=== PATIENT | female | born 1965 | race Caucasian/White ===

== ENCOUNTER 2018-03-14 20:28 | Emergency (ER) | payer SELFPAY ==
[2018-03-14 20:28] VITALS: BP 140/94; PULSE 115; RESP 22; TEMP 36.9; O2SAT 97; BMI 32.4
--- NOTE | 2018-03-14 20:52 | EKG12_ITS ---
Test Reason : CP Blood Pressure : / mmHG Vent. Rate : 085 BPM Atrial Rate : 085 BPM P-R Int : 154 ms QRS Dur : 096 ms QT Int : 388 ms P-R-T Axes : 056 089 041 degrees QTc Int : 461 ms Normal sinus rhythm Normal ECG Confirmed by BELLA ZAMORA, TRUDI ([id number]), television news video editor SHUBHAM STEVENS ([id number]) on 03/16/2018 2:34:28 PM Referred By: Confirmed By:TRUDI BLANCO MD
--- NOTE | 2018-03-14 20:52 | RAD_ITS ---
STUDY: X-RAY CHEST REASON FOR EXAM: Female, 52 years old. DYSPNEA TECHNIQUE: Frontal and lateral views of the chest. COMPARISON: None. FINDINGS: The lungs are clear and expanded. There is no demonstrated pleural abnormality. Normal size heart. Normal mediastinum and giuliana. Normal visualized pulmonary arteries. Normal visualized aortic arch and descending thoracic aorta. Normal visualized thoracic spine. Normal visualized ribs, clavicles, and shoulders. There is no demonstrated abnormality of the visualized soft tissue structures of the upper abdomen. RAD/Chest PA and Lateral IMPRESSION: Normal x-ray examination of the chest. Electronically Signed: Chicho Cardenas MD at 21:32 EDT , Service support ,
[2018-03-14 21:02] LABS: Bacteria 0 SEEN /hpf (None Seen); Mucous, Urine 0 SEEN /hpf (<or=2+); Red Blood Cells-Urine 0 SEEN /hpf (0-5); White Blood Cells 0 SEEN /hpf (0-5)
[2018-03-14 21:04] LABS: Absolute Lymphocyte Count 2.92 X10^3/ul (0.83-4.51); Absolute Neutrophil Count 6.1 X10^3/uL (2.0-7.7); Basophil# 0.04 X10^3/uL; Basophil% 0.4 % (0-1); Eosinophil# 0.57 X10^3/uL; Eosinophils% 5.4 % (0-5); Hematocrit 41.4 % (37-47); Hemoglobin 14.1 g/dl (12.0-15.0); Lymphocyte # 2.92 X10^3/ul (4.0); Lymphocyte % 27.5 % (19-41); Mean Corp Hgb Conc 34.1 g/gl (32-36); Mean Corpuscular Hgb 32.8 pg (27.0-32.0); Mean Corpuscular Volume 96.3 fL (81-99); Mean Platelet Vol. 9.4 fl (6.2-12.0); Monocyte# 0.99 X10^3/uL; Monocyte% 9.3 % (0-10); Neutrophil # 6.06 X10^3/uL (2.7-7.7); Neutrophil % 57.2 % (47-70); Platelet Count 348 K/mm3 (150-450); RBC Distribution Width CV 13.7 % (11.6-14.6); RBC Distribution Width SD 47.9 fl (35.1-43.9); White Blood Count 10.6 K/mm3 (4.4-11.0)
[2018-03-14 21:06] LABS: Color, Urine Straw (Yellow); Glucose, Dipstick Normal (Normal); Ketone-Dipstick Negative (Negative); Leukocyte Esterase-Dipstick Negative /ul (Negative); Nitrite-Dipstick Negative (Negative); Occult Blood-Urine Negative /ul (Negative); Protein-Dipstick Negative (Negative); Specific Gravity, Urine 1.005 (1.002-1.030); Urine Bilirubin Dipstick Negative (Negative); Urine Clarity Clear (Clear); Urine Urobilinogen Normal (Normal)
[2018-03-14 21:06] LABS: POSITIVE COUNT NO; POSITIVE DIFFERENTIAL NO; POSITIVE MORPHOLOGY NO
[2018-03-14 21:17] LABS: Squamous Epithelial Cells - UA 0-5 SEEN /hpf (5-10)
[2018-03-14 21:32] VITALS: BP 98/71; PULSE 72; RESP 17; O2SAT 100
[2018-03-14 21:39] LABS: BNP,B-Type NATRIURETIC PEPTIDE 12.8 pg/mL (0-100)
[2018-03-14 21:44] LABS: ALB/GLOB Ratio 1.2 RATIO (0.9-2.4); AST(SGOT) 26 U/L (15-37); Alanine Aminotransfer ALT/SGPT 26 U/L (13-56); Albumin, Serum 4.1 g/dL (3.2-5.0); Alkaline Phosphatase 103 U/L (45-117); Anion Gap 12 (5-15); BUN 12 mg/dL (7-18); BUN/Creat Ratio 14.2 RATIO (10-20); Calcium,Total 9.2 mg/dL (8.5-10.1); Chloride 104 mmol/L (98-107); Creatinine, Serum 0.84 mg/dL (0.55-1.02); EST Glomerular Filtration Rate 75 mL/min (>60); Est Glom Filt Rate - Afr Amer 91 mL/min (>60); Globulin 3.4 g/dL (2.2-4.2); Glucose 88 mg/dL (74-106); Lipase 194 U/L (73-393); Potassium 3.4 mmol/L (3.5-5.1); Protein, Total 7.5 g/dL (6.4-8.2); Sodium Level 141 mmol/L (136-145); Thyroid Stim Hormone (TSH) 8.08 uIU/mL (0.358-3.74)
[2018-03-14 22:09] VITALS: BP 108/67; PULSE 76; RESP 14; O2SAT 99
--- NOTE | 2018-03-14 22:19 | ED.VISSUMM ---
- ER Visit Summary Date of Service: 03/14/18 Chief Complaint: Chest pain History of Present Illness: The patient is a 52 F who reports that for the past 3 weeks she has had some leg swelling. She also notes palpitations. She states that towards the middle of February she went to [facility] urgent care. She had she had a Holter monitor placed but has not gotten results back. Patient states she has been putting herself on an [id number] diuretic. She states that by the end of the day her legs are swollen. By morning they are improved. Tonight she felt chest pain palpitations (heart beating strongly) and had shortness of breath he drove herself to the emergency room. She admits to having several alcoholic drinks prior to arrival. Physical Examination: Afebrile vital signs are stable Gen: Well-nourished well-developed Head: Normocephalic atraumatic Eyes: Perrl EOMI ENT: TMs clear no rhinorrhea moist mucous membranes Neck: Supple no lymphadenopathy no JVD nontender CVS: Regular rate rhythm no murmurs normal S1-S2 Respiratory: No distress clear to auscultation bilaterally chest nontender Abdomen: Soft nontender nondistended normal bowel sounds no masses Back: Nontender Extremity: Nontender no edema Skin: Normal color no rash Neuro: alert orientated ?3 CN II-XII intact normal strength sensation reflexes gait cerebellar Psych: Anxious Test Results: EKG shows a normal sinus rhythm at a rate of 85 white count 10.6. Potassium 3.4. Magnesium 2. Troponin less than 0.015. Alcohol level 92. TSH 8.08. Emergency Department Course and Treatment: Using the cleansing program I see that the patient had some thyroid studies in the beginning of February that were in the normal range. I do not see a heart monitor report. Patient was placed on potassium and twice daily Lasix. She is to follow-up with her doctor the beginning of next week. She was advised that if she has been drinking needs to come the hospital that she should call the ambulance. Impression: 1. Lymphedema 2. Hypokalemia This note was generated with [employer] dictation software. It may contain incorrect words, spelling, and punctuation that were not noted in review of the chart prior to signing ED Disposition - Plan for ED Patient: Disposition: Home or Assisted Living Chief Complaint: Chest Pain Instructions: ED Lymphedema Prescriptions: Potassium Chloride [Klor-Con] 40 meq PO DAILY #10 packet Furosemide [Lasix] 40 mg PO BID #10 tab Referrals: Yaneth Simmons MD [Primary Care Provider] - 1 Week
--- NOTE | 2018-03-14 22:24 | ED.DCSUM_ITS ---
- ER Visit Summary Date of Service: 03/14/18 Chief Complaint: Chest pain History of Present Illness: The patient is a 52 F who reports that for the past 3 weeks she has had some leg swelling. She also notes palpitations. She states that towards the middle of February she went to [facility] urgent care. She had she had a Holter monitor placed but has not gotten results back. Patient states she has been putting herself on an [id number] diuretic. She states that by the end of the day her legs are swollen. By morning they are improved. Tonight she felt chest pain palpitations (heart beating strongly ) and had shortness of breath he drove herself to the emergency room. She admits to having several alcoholic drinks prior to arrival. Physical Examination: Afebrile vital signs are stable Gen: Well-nourished well-developed Head: Normocephalic atraumatic Eyes: Perrl EOMI ENT: TMs clear no rhinorrhea moist mucous membranes Neck: Supple no lymphadenopathy no JVD nontender CVS: Regular rate rhythm no murmurs normal S1-S2 Respiratory: No distress clear to auscultation bilaterally chest nontender Abdomen: Soft nontender nondistended normal bowel sounds no masses Back: Nontender Extremity: Nontender no edema Skin: Normal color no rash Neuro: alert orientated ?3 CN II-XII intact normal strength sensation reflexes gait cerebellar Psych: Anxious Test Results: EKG shows a normal sinus rhythm at a rate of 85 white count 10.6. Potassium 3.4. Magnesium 2. Troponin less than 0.015. Alcohol level 92. TSH 8.08. Emergency Department Course and Treatment: Using the cleansing program I see that the patient had some thyroid studies in the beginning of February that were in the normal range. I do not see a heart monitor report. Patient was placed on potassium and twice daily Lasix. She is to follow-up with her doctor the beginning of next week. She was advised that if she has been drinking needs to come the hospital that she should call the ambulance. Impression: 1. Lymphedema 2. Hypokalemia This note was generated with [employer] dictation software. It may contain incorrect words, spelling, and punctuation that were not noted in review of the chart prior to signing ED Disposition - Plan for ED Patient: Disposition: Home or Assisted Living Chief Complaint: Chest Pain Instructions: ED Lymphedema Prescriptions: Potassium Chloride [Klor-Con] 40 meq PO DAILY #10 packet Furosemide [Lasix] 40 mg PO BID #10 tab Referrals: Yaneth Simmons MD [Primary Care Provider] - 1 Week
[2018-03-14 22:55] VITALS: BP 112/70; PULSE 87; RESP 15; O2SAT 100
--- NOTE | 2018-03-14 22:56 | ED.RN ---
pt given written and verbal discharge instructions and home going prescriptions. pt verbalizes understanding. pt educated not to drink and drive. pt iv d/c and covered with 2x2 gauze dressing and paper tape. pt dresses self and ambulates out of dept without any needed assistance from staff.
== END 2018-03-14 22:59 | disposition home or self-care (01) ==
PROVIDERS: Emergency Provider Emergency Medicine; Family Provider Internal Medicine; PCP Internal Medicine
DX: I89.0 Lymphedema, not elsewhere classified (principal); E87.6 Hypokalemia; I10 Essential (primary) hypertension; R00.2 Palpitations; R06.00 Dyspnea, unspecified; Z72.0 Tobacco use; Z79.82 Long term (current) use of aspirin; Z79.899 Other long term (current) drug therapy
CPT/HCPCS: 71046; 80053; 80320; 81001; 83690; 83735; 83880; 84443; 84484; 85025; 93005; 99284; A4216; G0480

== ENCOUNTER → 2021-02-02 09:25 | Outpatient (CLI) | payer MEDICAID, SELFPAY ==
[2021-01-14 14:37] VITALS: BMI 32.4
[2021-02-02 12:42] LABS: Absolute Lymphocyte Count 1.83 X10^3/uL (0.83-4.51); Absolute Neutrophil Count 3.8 X10^3/uL (2.0-7.7); Basophil# 0.04 X10^3/uL; Basophil% 0.6 % (0-1); Eosinophil# 0.41 X10^3/uL; Eosinophils% 6.1 % (0-5); Hematocrit 44.3 % (37-47); Hemoglobin 14.4 g/dL (12.0-15.0); Lymphocyte # 1.83 X10^3/ul (0.83-4.51); Lymphocyte % 27.1 % (19-41); Mean Corp Hgb Conc 32.5 g/dL (32-36); Mean Corpuscular Hgb 31.6 pg (27.0-32.0); Mean Corpuscular Volume 97.4 fL (81-99); Mean Platelet Vol. 10.1 fl (6.2-12.0); Monocyte# 0.67 X10^3/uL; Monocyte% 9.9 % (0-10); NRBC Flagged by Analyzer 0 % (0-5); Neutrophil # 3.79 X10^3/uL (2.7-7.7); Neutrophil % 56.2 % (47-70); Platelet Count 361 K/mm3 (150-450); RBC Distribution Width CV 12.9 % (11.6-14.6); RBC Distribution Width SD 46.5 fl (35.1-43.9); Red Blood Count 4.55 M/mm3 (4.2-5.4); White Blood Count 6.8 K/mm3 (4.4-11.0)
[2021-02-02 13:15] LABS: ALB/GLOB Ratio 1.1 RATIO (0.9-2.4); AST(SGOT) 17 U/L (15-37); Alanine Aminotransfer ALT/SGPT 20 U/L (13-56); Albumin, Serum 3.9 g/dL (3.2-5.0); Alkaline Phosphatase 101 U/L (45-117); Anion Gap 7 (5-15); BUN 16 mg/dL (7-18); BUN/Creat Ratio 15.4 RATIO (10-20); Calcium,Total 9.5 mg/dL (8.5-10.1); Chloride 99 mmol/L (98-107); Cholesterol 150 mg/dL (200); Creatinine, Serum 1.04 mg/dL (0.55-1.02); EST Glomerular Filtration Rate 58 mL/min (>60); Est Glom Filt Rate - Afr Amer 71 mL/min (>60); Free T3 3.9 pg/mL (2.18-3.98); Globulin 3.4 g/dL (2.2-4.2); Glucose 107 mg/dL (74-106); High Density Lipoprotein 58 mg/dL; Magnesium 2.2 mg/dL (1.6-2.6); Potassium 3.8 mmol/L (3.5-5.1); Protein, Total 7.3 g/dL (6.4-8.2); Sodium Level 138 mmol/L (136-145); T4 Free Direct 0.84 ng/dL (0.76-1.46); Triglycerides 112 mg/dL; Very Low Density Lipoprotein 22 mg/dL (5-40)
[2021-02-02 13:20] LABS: Hemoglobin A1c 5.6 % (3.8-5.6)
== END ==
PROVIDERS: PCP Internal Medicine; Referring Provider Internal Medicine; Visit Provider Internal Medicine
DX: E03.9 Hypothyroidism, unspecified (principal); E53.8 Deficiency of other specified B group vitamins; E55.9 Vitamin D deficiency, unspecified; E88.81 Metabolic syndrome and other insulin resistance; I10 Essential (primary) hypertension; K21.9 Gastro-esophageal reflux disease without esophagitis; K58.9 Irritable bowel syndrome, unspecified
CPT/HCPCS: 36415; 80053; 80061; 82306; 83036; 83735; 84439; 84443; 84481; 85025

== ENCOUNTER → 2021-04-15 13:17 | Outpatient (CLI) | payer MEDICAID, SELFPAY ==
[2021-04-15 11:37] VITALS: BMI 32.8
[2021-04-15 16:13] LABS: Anion Gap 7 (5-15); BUN 20 mg/dL (7-18); CRP < 2.90 mg/L (0.0-3.0); Calcium,Total 9.6 mg/dL (8.5-10.1); Chloride 97 mmol/L (98-107); Creatinine, Serum 1.25 mg/dL (0.55-1.02); EST Glomerular Filtration Rate 47 mL/min (>60); Est Glom Filt Rate - Afr Amer 57 mL/min (>60); Glucose 117 mg/dL (74-106); Magnesium 2.1 mg/dL (1.6-2.6); Potassium 3.6 mmol/L (3.5-5.1); Sodium Level 136 mmol/L (136-145)
[2021-04-15 16:24] LABS: Erythrocyte Sedimentation Rate 4 mm/hr (0-30)
== END ==
PROVIDERS: PCP Internal Medicine; Referring Provider Internal Medicine; Visit Provider Internal Medicine
DX: I10 Essential (primary) hypertension (principal); E03.9 Hypothyroidism, unspecified; R00.2 Palpitations; M25.542 Pain in joints of left hand
CPT/HCPCS: 36415; 80048; 83735; 85652; 86140

== ENCOUNTER → 2021-05-12 08:17 | Outpatient (CLI) | payer MEDICAID, SELFPAY ==
[2021-05-12 08:19] LABS: Lyme Ab Screen Interpretation REF LAB
[2021-05-12 12:35] LABS: Anion Gap 3 (5-15); BUN 19 mg/dL (7-18); BUN/Creat Ratio 16.8 RATIO (10-20); Calcium,Total 9.3 mg/dL (8.5-10.1); Chloride 102 mmol/L (98-107); Creatinine, Serum 1.13 mg/dL (0.55-1.02); EST Glomerular Filtration Rate 53 mL/min (>60); Est Glom Filt Rate - Afr Amer 64 mL/min (>60); Glucose 108 mg/dL (74-106); Potassium 3.8 mmol/L (3.5-5.1); Sodium Level 137 mmol/L (136-145)
[2021-05-13 14:22] LABS: Lyme Scn Total Ab w/Rflx <0.91 ISR (0.00-0.90)
== END ==
PROVIDERS: PCP Internal Medicine; Referring Provider Internal Medicine; Visit Provider Internal Medicine
DX: I10 Essential (primary) hypertension (principal); W57.XXXA Bitten or stung by nonvenomous insect and other nonvenomous arthropods, initial encounter
CPT/HCPCS: 36415; 80048; 86618

== ENCOUNTER → 2021-07-15 11:03 | Outpatient (CLI) | payer MEDICAID, SELFPAY ==
[2021-07-15 12:31] LABS: Anion Gap 4 (5-15); BUN 21 mg/dL (7-18); BUN/Creat Ratio 19.3 RATIO (10-20); Calcium,Total 10.4 mg/dL (8.5-10.1); Chloride 101 mmol/L (98-107); Creatinine, Serum 1.09 mg/dL (0.55-1.02); EST Glomerular Filtration Rate 55 mL/min (>60); Est Glom Filt Rate - Afr Amer 67 mL/min (>60); Glucose 111 mg/dL (74-106); Magnesium 2.4 mg/dL (1.6-2.6); Sodium Level 136 mmol/L (136-145)
== END ==
PROVIDERS: PCP Internal Medicine; Referring Provider Internal Medicine; Visit Provider Internal Medicine
DX: I10 Essential (primary) hypertension (principal); E03.9 Hypothyroidism, unspecified; R79.89 Other specified abnormal findings of blood chemistry
CPT/HCPCS: 36415; 80048; 82533; 83735

== ENCOUNTER 2021-09-16 13:22 | Outpatient (CLI) | payer MEDICAID, SELFPAY ==
[2021-09-19 20:08] LABS: Covid Inpatient test code BILL Performed (.)
== END 2021-09-16 23:59 | disposition short-term general hospital (02) ==
LOC: LABSPEC 13:22
PROVIDERS: PCP Internal Medicine; Visit Provider Internal Medicine
DX: J06.9 Acute upper respiratory infection, unspecified (principal)
CPT/HCPCS: U0003; 87635; U0005

== ENCOUNTER 2021-10-08 10:58 | Outpatient (CLI) | payer MEDICAID, SELFPAY | END 2021-10-08 23:59 | disposition short-term general hospital (02) | LOC: LABSPEC 10:59 | PROVIDERS: PCP Internal Medicine; Referring Provider Internal Medicine; Visit Provider Internal Medicine | DX: U07.1 COVID-19 (principal) | CPT/HCPCS: 87635; U0003; U0005 ==

== ENCOUNTER 2021-11-12 12:01 | Outpatient (CLI) | payer MEDICAID, SELFPAY ==
[2021-11-12 15:27] LABS: Absolute Lymphocyte Count 1.88 X10^3/uL (0.83-4.51); Absolute Neutrophil Count 4.7 X10^3/uL (2.0-7.7); Basophil# 0.05 X10^3/uL; Basophil% 0.6 % (0-1); Eosinophils% 6.3 % (0-5); Hematocrit 42.1 % (37-47); Lymphocyte # 1.88 X10^3/ul (0.83-4.51); Lymphocyte % 23.7 % (19-41); Mean Corp Hgb Conc 33.3 g/dL (32-36); Mean Corpuscular Hgb 32.4 pg (27.0-32.0); Mean Corpuscular Volume 97.5 fL (81-99); Mean Platelet Vol. 10.2 fl (6.2-12.0); Monocyte# 0.77 X10^3/uL; Monocyte% 9.7 % (0-10); NRBC Flagged by Analyzer 0 % (0-5); Neutrophil % 59.4 % (47-70); Platelet Count 339 K/mm3 (150-450); RBC Distribution Width SD 50.6 fl (35.1-43.9); Red Blood Count 4.32 M/mm3 (4.2-5.4); White Blood Count 7.9 K/mm3 (4.4-11.0)
[2021-11-12 15:40] LABS: ALB/GLOB Ratio 1.2 RATIO (0.9-2.4); AST(SGOT) 18 U/L (15-37); Alanine Aminotransfer ALT/SGPT 22 U/L (13-56); Albumin, Serum 4.1 g/dL (3.2-5.0); Alkaline Phosphatase 101 U/L (45-117); Anion Gap 4 (5-15); BUN 17 mg/dL (7-18); BUN/Creat Ratio 14.7 RATIO (10-20); Chloride 104 mmol/L (98-107); Creatinine, Serum 1.16 mg/dL (0.55-1.02); EST Glomerular Filtration Rate 51 mL/min (>60); Est Glom Filt Rate - Afr Amer 62 mL/min (>60); Globulin 3.4 g/dL (2.2-4.2); Glucose 113 mg/dL (74-106); Magnesium 2.4 mg/dL (1.6-2.6); Potassium 4.3 mmol/L (3.5-5.1); Protein, Total 7.5 g/dL (6.4-8.2); Sodium Level 138 mmol/L (136-145)
== END 2021-11-12 23:59 | disposition home or self-care (01) ==
LOC: BIMLAB 12:02
PROVIDERS: PCP Internal Medicine; Referring Provider Internal Medicine; Visit Provider Internal Medicine
DX: E03.9 Hypothyroidism, unspecified (principal); R00.2 Palpitations; R79.89 Other specified abnormal findings of blood chemistry; I10 Essential (primary) hypertension
CPT/HCPCS: 36415; 80053; 83735; 85025

== ENCOUNTER → 2023-03-25 | Outpatient (CLI) | payer MEDICAID, SELFPAY ==
[2023-03-25 12:26] LABS: Absolute Lymphocyte Count 1.64 X10^3/uL (0.83-4.51); Absolute Neutrophil Count 5.1 X10^3/uL (2.0-7.7); Basophil# 0.06 X10^3/uL; Basophil% 0.7 % (0-1); Eosinophil# 0.64 X10^3/uL; Eosinophils% 7.8 % (0-5); Hematocrit 46.6 % (37-47); Hemoglobin 15.8 g/dL (12.0-15.0); Lymphocyte # 1.64 X10^3/ul (0.83-4.51); Mean Corp Hgb Conc 33.9 g/dL (32-36); Mean Corpuscular Hgb 32.8 pg (27.0-32.0); Mean Corpuscular Volume 96.7 fL (81-99); Mean Platelet Vol. 9.6 fl (6.2-12.0); Monocyte# 0.69 X10^3/uL; Monocyte% 8.4 % (0-10); NRBC Flagged by Analyzer 0 % (0-5); Neutrophil # 5.12 X10^3/uL (2.7-7.7); Neutrophil % 62.5 % (47-70); Platelet Count 298 K/mm3 (150-450); RBC Distribution Width CV 13.1 % (11.6-14.6); RBC Distribution Width SD 46.8 fl (35.1-43.9); Red Blood Count 4.82 M/mm3 (4.2-5.4); White Blood Count 8.2 K/mm3 (4.4-11.0)
[2023-03-25 12:54] LABS: Vitamin D,25 Hydroxy 66.2 ng/mL
[2023-03-25 12:59] LABS: Hemoglobin A1c 5.7 % (3.8-5.6)
[2023-03-25 13:05] LABS: ALB/GLOB Ratio 1.1 RATIO (0.9-2.4); AST(SGOT) 14 U/L (15-37); Alanine Aminotransfer ALT/SGPT 14 U/L (13-56); Albumin, Serum 3.7 g/dL (3.2-5.0); Alkaline Phosphatase 96 U/L (45-117); Anion Gap 4 (5-15); BUN 17 mg/dL (7-18); BUN/Creat Ratio 13.7 RATIO (10-20); Calcium,Total 9.4 mg/dL (8.5-10.1); Chloride 103 mmol/L (98-107); Cholesterol 132 mg/dL (200); Creatinine, Serum 1.24 mg/dL (0.55-1.02); EST Glomerular Filtration Rate 47 mL/min (>60); Est Glom Filt Rate - Afr Amer 57 mL/min (>60); Free T3 3.8 pg/mL (2.18-3.98); Globulin 3.4 g/dL (2.2-4.2); Glucose 115 mg/dL (74-106); High Density Lipoprotein 60 mg/dL; Potassium 4.2 mmol/L (3.5-5.1); Protein, Total 7.1 g/dL (6.4-8.2); Sodium Level 136 mmol/L (136-145); T4 Free Direct 0.88 ng/dL (0.76-1.46); Thyroid Stim Hormone (TSH) 2.48 uIU/mL (0.358-3.74); Triglycerides 49 mg/dL; Very Low Density Lipoprotein 10 mg/dL (5-40)
== END | disposition home or self-care (01) ==
PROVIDERS: PCP Internal Medicine; Referring Provider Internal Medicine; Visit Provider Internal Medicine
DX: E88.81 Metabolic syndrome and other insulin resistance (principal); E53.8 Deficiency of other specified B group vitamins; E03.9 Hypothyroidism, unspecified; I10 Essential (primary) hypertension; K21.9 Gastro-esophageal reflux disease without esophagitis; E55.9 Vitamin D deficiency, unspecified; R73.9 Hyperglycemia, unspecified; F17.200 Nicotine dependence, unspecified, uncomplicated
CPT/HCPCS: 36415; 80053; 80061; 82306; 83036; 84439; 84443; 84481; 85025

== ENCOUNTER → 2023-12-15 | Outpatient (CLI) | payer MEDICAID, SELFPAY ==
--- NOTE | 2023-12-15 10:44 | RAD_ITS ---
STUDY: X-RAY CHEST REASON FOR EXAM: Female, 58 years old. Long-term smoker, multiple holden angiomas TECHNIQUE: PA and lateral COMPARISON: March 14, 2018 FINDINGS: Lungs are well expanded and clear... There is no demonstrated pleural abnormality. Normal size heart. Normal mediastinum. Tiny left perihilar granulomatous calcification. Normal visualized pulmonary arteries. Normal visualized aortic arch and descending thoracic aorta. Normal visualized thoracic spine. Normal visualized ribs, clavicles, and shoulders. There is no demonstrated abnormality of the visualized soft tissue structures of the upper abdomen. No significant change since prior exam RAD/Chest PA and Lateral IMPRESSION: No acute cardiopulmonary pathology Electronically Signed: Masood Landrum MD at 22:56 EDT ,
--- NOTE | 2023-12-15 10:45 | RAD_ITS ---
INDICATION: left hip pain EXAMINATION/TECHNIQUE: X-RAY - XR Hips Bilateral with Pelvis when performed; 2 Views COMPARISON: FINDINGS: PELVIC BONES: No displaced fracture, destructive or sclerotic lesions. Note that overlapping bowel shadows may however obscure fine detail. Sacroiliac joints are unremarkable. No widening of the pubic symphysis. HIPS: The articular structures are unremarkable. No displaced fracture seen in this frontal view. SOFT TISSUES: Small soft tissue calcification adjacent to the greater trochanter possibly due to calcific tendinitis. RAD/Hips B/L min 2 views w/ Pelvis IMPRESSION: No evidence of displaced pelvic or hip fracture. Possible calcific tendinitis. Electronically Signed: Masood Landrum MD at 20:55 EDT ,
[2023-12-15 11:41] LABS: Absolute Lymphocyte Count 1.68 X10^3/uL (0.83-4.51); Absolute Neutrophil Count 4.3 X10^3/uL (2.0-7.7); Basophil# 0.05 X10^3/uL; Basophil% 0.7 % (0-1); Eosinophil# 0.27 X10^3/uL; Eosinophils% 3.8 % (0-5); Hematocrit 43.3 % (37-47); Hemoglobin 14.5 g/dL (12.0-15.0); Lymphocyte # 1.68 X10^3/ul (0.83-4.51); Lymphocyte % 23.5 % (19-41); Mean Corp Hgb Conc 33.5 g/dL (32-36); Mean Corpuscular Hgb 32.7 pg (27.0-32.0); Mean Corpuscular Volume 97.7 fL (81-99); Mean Platelet Vol. 9.4 fl (6.2-12.0); Monocyte# 0.77 X10^3/uL; Monocyte% 10.8 % (0-10); NRBC Flagged by Analyzer 0 % (0-5); Neutrophil # 4.33 X10^3/uL (2.7-7.7); Neutrophil % 60.6 % (47-70); Platelet Count 320 K/mm3 (150-450); RBC Distribution Width SD 46.7 fl (35.1-43.9); Red Blood Count 4.43 M/mm3 (4.2-5.4); White Blood Count 7.1 K/mm3 (4.4-11.0)
[2023-12-15 12:21] LABS: Vitamin B12 176 pg/mL (211-911)
[2023-12-15 12:26] LABS: ALB/GLOB Ratio 1.5 RATIO (0.9-2.4); AST(SGOT) 16 U/L (15-37); Alanine Aminotransfer ALT/SGPT 13 U/L (13-56); Albumin, Serum 4.4 g/dL (3.2-5.0); Alkaline Phosphatase 85 U/L (45-117); Anion Gap 5 (5-15); BUN 25 mg/dL (7-18); BUN/Creat Ratio 16.4 RATIO (10-20); Calcium,Total 9.7 mg/dL (8.5-10.1); Chloride 102 mmol/L (98-107); Cholesterol 147 mg/dL (200); Creatinine, Serum 1.52 mg/dL (0.55-1.02); EST Glomerular Filtration Rate 37 mL/min (>60); Est Glom Filt Rate - Afr Amer 45 mL/min (>60); Free T3 3.1 pg/mL (2.18-3.98); Glucose 109 mg/dL (74-106); High Density Lipoprotein 67 mg/dL; Magnesium 2.2 mg/dL (1.6-2.6); Potassium 4.1 mmol/L (3.5-5.1); Protein, Total 7.4 g/dL (6.4-8.2); Sodium Level 135 mmol/L (136-145); T4 Free Direct 0.85 ng/dL (0.76-1.46); Thyroid Stim Hormone (TSH) 3.82 uIU/mL (0.358-3.74); Triglycerides 58 mg/dL; Very Low Density Lipoprotein 12 mg/dL (5-40)
[2023-12-15 12:28] LABS: Hemoglobin A1c 5.5 % (3.8-5.6)
== END | disposition home or self-care (01) ==
LOC: LAB 10:42
PROVIDERS: PCP Internal Medicine; Referring Provider Internal Medicine; Visit Provider Internal Medicine
DX: I10 Essential (primary) hypertension (principal); E53.8 Deficiency of other specified B group vitamins; E03.9 Hypothyroidism, unspecified; E55.9 Vitamin D deficiency, unspecified; E88.810 Metabolic syndrome; K21.9 Gastro-esophageal reflux disease without esophagitis; D18.01 Hemangioma of skin and subcutaneous tissue; M25.552 Pain in left hip; R19.5 Other fecal abnormalities; R73.9 Hyperglycemia, unspecified; F17.200 Nicotine dependence, unspecified, uncomplicated; Z13.220 Encounter for screening for lipoid disorders
CPT/HCPCS: 36415; 71046; 73521; 80053; 80061; 82306; 82607; 83036; 83735; 84439; 84443; 84481; 85025

== ENCOUNTER → 2024-02-22 | Outpatient (CLI) | payer MEDICAID, SELFPAY | END | disposition home or self-care (01) | LOC: LABSPEC 07:27 | PROVIDERS: PCP Internal Medicine; Visit Provider Surgery | DX: R19.7 Diarrhea, unspecified (principal) | CPT/HCPCS: 82274; 83630; 87177; 87209; 87493; 87506 ==

== ENCOUNTER → 2024-03-19 | Outpatient (CLI) | payer MEDICAID, SELFPAY ==
--- NOTE | 2024-03-19 06:57 | CT_ITS ---
STUDY: CT ABDOMEN AND PELVIS WITH CONTRAST REASON FOR EXAM: Female, 58 years old. Diffuse abdominal pain. Nausea. Diarrhea. Weight loss. RADIATION DOSAGE (If Supplied By Facility): CTDIvol = ( 15.27 ) mGy, DLP = ( 1158.85 ) mGycm TECHNIQUE: Transaxial images were obtained from the dome of the diaphragm to the symphysis pubis with oral contrast. Oral and amp; IV Readi-CAT and amp; 100mL Isovue-300 was administered. Sagittal and coronal images were reconstructed. Individualized dose optimization techniques were used for this CT. COMPARISON: None. FINDINGS: The visualized lung bases are unremarkable. The visualized portions of the heart are within normal limits. There is a 3.7 cm x 4.1 cm focal area of heterogeneous enhancement in the lateral mid aspect of the right lobe of the liver. This area is more homogeneous on the delayed images. This may represent an atypical hemangioma or possible regenerating nodules. Correlation with MRI is recommended. There are surgical clips in the gallbladder fossa consistent with a prior cholecystectomy. Normal spleen. Normal pancreas. Normal bilateral adrenal glands. Normal right kidney. Normal left kidney. Normal visualized stomach. Normal small intestine. There is evidence of colitis of the right hemicolon. There is evidence of a 5.9 cm x 5.5 cm x 4.4 cm predominantly fluid collection adjacent to the posterior-inferior aspect of the cecum. This may represent a duplication cyst or possible lymphocele. The patient is status post appendectomy. Normal abdominal aorta. Normal inferior vena cava. Normal retroperitoneum. Normal urinary bladder. There is absence of the uterus consistent with a prior hysterectomy. Normal abdominal wall. Disc space narrowing at the L4-L5 level. CT/Abdomen/Pelvis WITH Contrast IMPRESSION: Findings suggestive of colitis of the right hemicolon. 5.9 cm x 5.5 cm x 4.4 cm predominantly fluid collection adjacent to the posterolateral aspect of the cecum. This may represent either a duplication cyst versus possible lymphocele. 3.7 cm x 4 point centimeter focal area of heterogeneous enhancement in the lateral mid aspect of the right lobe of liver as described. Correlation with MRI of the liver is recommended for further evaluation. Electronically Signed: Jef Solis MD at 10:03 EDT ,
[2024-03-19 07:27] LABS: CREATININE FINGERSTICK < 1.0 mg/dL (0.55-1.02); EGFR FINGERSTICK > 60.0000 mL/min (>60)
== END | disposition home or self-care (01) ==
LOC: CT 06:55
PROVIDERS: PCP Internal Medicine; Referring Provider Surgery; Visit Provider Surgery
DX: R19.7 Diarrhea, unspecified (principal); R10.9 Unspecified abdominal pain
CPT/HCPCS: 74177; Q9967

== ENCOUNTER 2024-03-28 09:56 | Inpatient (IN) | payer MEDICAID, SELFPAY ==
[2024-03-28] VITALS (7 sets, daily range): BP systolic 91–123; BP diastolic 60–89; PULSE 58–84; RESP 16–18; TEMP 36.1–36.8; O2SAT 95–100; BMI 26.3; BMI 26.1
--- NOTE | 2024-03-28 10:26 | CT_ITS ---
STUDY: CT ABDOMEN AND PELVIS WITH CONTRAST REASON FOR EXAM: Female, 58 years old. Colitis. Worsening abdominal pain with diarrhea. Occult blood in the stool. RADIATION DOSAGE (If Supplied By Facility): CTDIvol = ( 13.34 ) mGy, DLP = ( 760.23 ) mGycm TECHNIQUE: Transaxial images were obtained from the dome of the diaphragm to the symphysis pubis with oral contrast. Oral and amp; IV Gastrografin and amp; 100mL Isovue-300 was administered. Sagittal and coronal images were reconstructed. Individualized dose optimization techniques were used for this CT. COMPARISON: None. FINDINGS: The visualized lung bases are unremarkable. The visualized portions of the heart are within normal limits. Stable 3.7 cm x 4.1 cm heterogeneous enhancement in the lateral midportion of the right lobe of the liver. This may represent an atypical hemangioma or possible regenerating nodules. Once again, correlation with MRI is recommended. There are surgical clips in the gallbladder fossa consistent with a prior cholecystectomy. Normal spleen. Normal pancreas. Normal bilateral adrenal glands. Normal right kidney. Normal left kidney. Normal visualized stomach. Normal small intestine. There is evidence of pancolitis. This has progressed into the distal colon. Stable 5.9 cm x 5.5 signed by 4.4 cm predominantly fluid collection adjacent to the posterior inferior aspect of the cecum. This may represent either a duplication cyst or possible lymphocele. The patient is status post appendectomy. Normal abdominal aorta. Normal inferior vena cava. Normal retroperitoneum. Diffuse bladder wall thickening. This has progressed as compared to prior study. There is absence of the uterus consistent with a prior hysterectomy. Normal abdominal wall. Disc space narrowing at the L4-L5 level. CT/Abdomen/Pelvis WITH Contrast IMPRESSION: There has been a progression of the colitis as compared to prior study. Persistent fluid collection adjacent to the cecum. Diffuse bladder wall thickening. Stable heterogeneous appearance of the lateral midportion of the right lobe of the liver. Electronically Signed: Jef Solis MD at 12:23 EDT ,
--- NOTE | 2024-03-28 10:28 | ED.VIS.GI ---
HPI HPI - GI History of Present Illness Chief Complaint: Abd Pain Informant: patient Narrative Narrative: 58-year-old female presenting to the emergency room with chronic diarrhea and abdominal pain. Patient notes that she has had loose stools chronically for years since her cholecystectomy. She states over the last 2 months she has had severe diarrhea now up to 4-5 times per day. She states that it is coffee ground and yellow bile. She states that over the past couple days she has been having fever yesterday up to 101 today. She states that she saw Dr. Perea from surgery in February and had stool studies and a CT scan performed at the beginning of this month. She states that the CT scan showed colitis and she was placed on antibiotics (Cipro and Flagyl). Patient states that she is not any better and today could not get off the commode due to persistent diarrhea and so she decided to come to emergency. She states she spoke with Dr. Perea's nurse this am. [facility] Medical History Left hip pain Vitamin D deficiency, unspecified Insulin resistance Vitamin B12 deficiency GERD (gastroesophageal reflux disease) Hypothyroidism IBS (irritable bowel syndrome) Hypertension TMJ (dislocation of temporomandibular joint) History of gallstones History of basal cell carcinoma History of fracture of leg Arthritis Seasonal allergies Home Medications ?Medication ?Instructions ?Recorded ?Last Taken ?Type aspirin 81 mg chewable tablet 81 mg PO DAILY@0800 04/24/16 Unknown History biotin 5,000 mcg disintegrating 10,000 mcg PO DAILY 12/18/20 Unknown History tablet loratadine 10 mg tablet 10 mg PO DAILY 12/18/20 Unknown History metoprolol succinate 25 mg 25 mg PO BID #180 tabs 06/29/23 Unknown Rx tablet,extended release 24 hr paroxetine HCl 10 mg tablet 10 mg PO DAILY #90 tabs 06/29/23 Unknown Rx thyroid (pork) 60 mg tablet 60 mg PO DAILY #90 tabs 08/18/23 Unknown Rx ([place] Thyroid) triamterene 37.5 1 tab PO DAILY #90 tabs 08/30/23 Unknown Rx mg-hydrochlorothiazide 25 mg tablet melatonin 10 mg capsule 50 mg PO HS 12/15/23 Unknown History meloxicam 7.5 mg tablet 7.5 mg PO DAILY #90 tabs 12/15/23 Unknown Rx omeprazole 40 mg capsule,delayed 40 mg PO DAILY PRN 12/15/23 Unknown History release alcohol swabs 1 pad topical QMONTH #100 ea 12/22/23 Unknown Rx cyanocobalamin (vitamin B-12) 1,000 mcg IM QMONTH #10 mL 12/22/23 Unknown Rx 1,000 mcg/mL injection solution syringe with needle 3 mL 23 gauge #100 ea 12/22/23 Unknown Rx x 1 1/2 (CareTouch Luer Lock Syringe with needle) ciprofloxacin HCl 500 mg tablet 500 mg PO BID 10 days #20 tabs 03/20/24 Unknown Rx (Cipro) metronidazole 500 mg tablet 500 mg PO TID 10 days #30 tabs 03/20/24 Unknown Rx Allergy/AdvReac Type Severity Reaction Status Date / Time lisinopril Allergy Angioedema Verified 03/28/24 09:57 Penicillins Allergy Anaphylaxis Verified 03/28/24 09:57 prednisone Allergy Other Verified 03/28/24 09:57 Sulfa (Sulfonamide Allergy Hives Verified 03/28/24 09:57 Antibiotics) Tetracyclines Allergy Hives Verified 03/28/24 09:57 Family History Father Alcoholism Cancer Myocardial infarction Hypertension Mother Anemia Grandmother Breast cancer Brother Cancer Seizures Grandfather Myocardial infarction Other Heart disease Hyperlipemia Surgical History History of appendectomy History of hysterectomy History of cholecystectomy History of tonsillectomy Social History Smoking Status: Current every day smoker tobacco type: cigarettes Tobacco: How many years used: 20 alcohol intake: current alcohol intake frequency: a few times a month substance use type: does not use what type of physical activity do you participate in: none ROS ROS ED Constitutional Constitutional ED: Reports chills and fever(s); Denies weight loss Eyes Eyes: Denies change in vision or diplopia ENT ENT ED: Denies ear pain, rhinorrhea or sore throat Cardiovascular Cardiovascular: Denies chest pain, orthopnea, palpitations or racing heartbeat Respiratory/Chest Respiratory/Chest: Denies cough, dyspnea or orthopnea Gastrointestinal Gastrointestinal: Reports abdominal pain, diarrhea and nausea; Denies vomiting Genitourinary Genitourinary ED: Denies dysuria, hematuria or urinary frequency Musculoskeletal Musculoskeletal: Denies arthralgias or myalgias Integumentary Denies abscess or rash Neurologic Neurologic: Denies headache(s) or weakness Psychiatric Psychiatric: Denies anxiety, depression, suicidal ideation or suicidal thoughts Endocrine Endocrinology: Denies polydipsia, polyphagia or polyuria Allergic/Immunologic Allergic/Immunologic ED: Denies mouth swelling, tongue swelling or urticaria EXAM Physical Exam Const Vital Signs: 03/28/24 09:58 03/28/24 11:57 03/28/24 13:00 Temperature 97.9 F Temperature Source Temporal Pulse Rate 84 65 58 L Respiratory Rate 16 16 16 Blood Pressure 116/89 H 117/73 104/69 Blood Pressure Mean 98 87 80 Pulse Ox 98 100 97 Oxygen Delivery Method Room Air Room Air Room Air Positive well nourished and well developed General Appearance ED: well developed and NAD HEENT Reports normocephalic, head/scalp atraumatic and moist mucous membranes Eyes PERRL and EOMs intact bilaterally Neck no lymphadenopathy, supple and no JVD Resp normal respiratory effort and clear to auscultation bilaterally Cardio regular rate, regular rhythm and no murmurs GI Inspection: Negative for abdominal distention Auscultation: normoactive bowel sounds Palpation: soft, tender and guarding Back/Spine no CVA tenderness and normal ROM Extremity normal to inspection General Extremety ED: Negative for edema General Extremity: Negative for edema Neuro oriented x3 and CN's II-XII intact bilaterally Sensorium / Orientation: alert Motor Exam: strength 5/5 throughout Psych mental status grossly normal Mood & Affect: Negative for depressed or tearful Skin no rashes or lesions noted and no wounds MDM MDM MDM Narrative Medical decision making narrative: Differential diagnosis colitis diverticular bowel perforation volvulus bowel obstruction liver disease pancreatitis chronic diarrhea/IBS. History & Record Review Discussion w/independent historian: Patient and Family Additional record(s) reviewed:: Prior outpatient record and Prior labs Lab Data Attestation: I reviewed the patient's lab results. Labs: Laboratory Results - last 24 hr 03/28/24 10:35 WBC 9.6 RBC 4.70 Hgb 14.9 Hct 45.1 MCV 96.0 MCH 31.7 MCHC 33.0 RDW Std Deviation 47.1 H RDW Coeff of Brenden 13.3 Plt Count 360 MPV 9.5 Immature Gran % (Auto) 0.300 Neut % (Auto) 71.1 H Lymph % (Auto) 12.9 L Cameron % (Auto) 9.9 Eos % (Auto) 5.3 H Baso % (Auto) 0.5 Absolute Neuts (auto) 6.8 Absolute Lymphs (auto) 1.24 Nucleated RBC % 0 Sodium 135 L Potassium 4.0 Chloride 105 Carbon Dioxide 26.0 Anion Gap 4 L BUN 15 Creatinine 1.25 H Estim Creat Clear Calc 46.97 Est GFR (MDRD) Af Amer 57 L Est GFR (MDRD) Non-Af 47 L BUN/Creatinine Ratio 12.0 Glucose 132 H Calcium 9.3 Total Bilirubin 0.40 Direct Bilirubin 0.18 AST 16 ALT 16 Alkaline Phosphatase 77 Total Protein 7.1 Albumin 3.7 Globulin 3.4 Lipase 58 Radiography Diagnostic Testing: Clinical Impression(s) from Imaging Studies Abdomen/Pelvis CT 03/28/24 10:26 IMPRESSION: There has been a progression of the colitis as compared to prior study. Persistent fluid collection adjacent to the cecum. Diffuse bladder wall thickening. Stable heterogeneous appearance of the lateral midportion of the right lobe of the liver. Electronically Signed: Jef Solis MD at 12:23 EDT , Management Discussion w/another healthcare provider: Hospitalist (Dr. Tucker) and Senior [employer] Trader (Dr. Sana Perea) Discharge Plan Triage Chief Complaint: Abd Pain ED Provider: Chandan Armenta Dx/Rx/DC Orders Prescriptions: No Action biotin 5,000 mcg tablet,disintegrating 10,000 mcg PO DAILY loratadine 10 mg tablet 10 mg PO DAILY melatonin 10 mg capsule 50 mg PO HS omeprazole 40 mg capsule,delayed release(DR/EC) 40 mg PO DAILY PRN meloxicam 7.5 mg tablet 7.5 mg PO DAILY Qty: 90 1RF aspirin 81 MG tablet,chewable 81 mg PO DAILY@0800 paroxetine HCl 10 mg tablet 10 mg PO DAILY Qty: 90 3RF metoprolol succinate 25 mg tablet extended release 24 hr 25 mg PO BID Qty: 180 3RF thyroid (pork) [[place] Thyroid] 60 mg tablet 60 mg PO DAILY Qty: 90 3RF triamterene-hydrochlorothiazid 37.5-25 mg tablet 1 tab PO DAILY Qty: 90 3RF (DME) syringe with needle [CareTouch Luer Lock Syr-needle] 3 mL 23 gauge x 1 1/2 syringe See Rx Instructions .Route Qty: 100 0RF Rx Instructions: As directed cyanocobalamin (vitamin B-12) 1,000 mcg/mL solution 1,000 mcg IM QMONTH Qty: 10 0RF alcohol swabs Pads, Medicated 1 pad topical QMONTH Qty: 100 0RF ciprofloxacin HCl [Cipro] 500 mg tablet 500 mg PO BID 10 Days Qty: 20 0RF metronidazole 500 mg tablet 500 mg PO TID 10 Days Qty: 30 0RF Primary Care Provider: Melly Rodriguez Referrals: Melly Rodriguez MD [Primary Care Provider] - Print Language: Grenadian
[2024-03-28] MEDS: 0.9% Normal Saline (1000mL) 1,000 ML 999 ML IV (10:40)
[2024-03-28] MEDS: Morphine 4 MG/ML Syringe IV (10:40)
[2024-03-28] MEDS: Ondansetron 4 MG/2 ML Vial IV ×2 (10:40→17:12)
[2024-03-28 10:56] LABS: Absolute Lymphocyte Count 1.24 X10^3/uL (0.83-4.51); Absolute Neutrophil Count 6.8 X10^3/uL (2.0-7.7); Basophil# 0.05 X10^3/uL; Basophil% 0.5 % (0-1); Eosinophil# 0.51 X10^3/uL; Eosinophils% 5.3 % (0-5); Hematocrit 45.1 % (37-47); Hemoglobin 14.9 g/dL (12.0-15.0); Lymphocyte # 1.24 X10^3/ul (0.83-4.51); Lymphocyte % 12.9 % (19-41); Mean Corpuscular Hgb 31.7 pg (27.0-32.0); Mean Platelet Vol. 9.5 fl (6.2-12.0); Monocyte# 0.95 X10^3/uL; Monocyte% 9.9 % (0-10); NRBC Flagged by Analyzer 0 % (0-5); Neutrophil # 6.83 X10^3/uL (2.7-7.7); Neutrophil % 71.1 % (47-70); Platelet Count 360 K/mm3 (150-450); RBC Distribution Width CV 13.3 % (11.6-14.6); RBC Distribution Width SD 47.1 fl (35.1-43.9); White Blood Count 9.6 K/mm3 (4.4-11.0)
[2024-03-28 11:38] LABS: AST(SGOT) 16 U/L (15-37); Alanine Aminotransfer ALT/SGPT 16 U/L (13-56); Albumin, Serum 3.7 g/dL (3.2-5.0); Alkaline Phosphatase 77 U/L (45-117); Anion Gap 4 (5-15); BUN 15 mg/dL (7-18); Bilirubin, Direct 0.18 mg/dL (0.00-0.30); Calcium,Total 9.3 mg/dL (8.5-10.1); Chloride 105 mmol/L (98-107); Creatinine, Serum 1.25 mg/dL (0.55-1.02); EST Glomerular Filtration Rate 47 mL/min (>60); Est Glom Filt Rate - Afr Amer 57 mL/min (>60); Estimated Creatinine Clearance 46.97 ml/min; Globulin 3.4 g/dL (2.2-4.2); Glucose 132 mg/dL (74-106); Lipase 58 U/L (13-75); Protein, Total 7.1 g/dL (6.4-8.2); Sodium Level 135 mmol/L (136-145)
[2024-03-28] MEDS: 0.9% Normal Saline (1000mL) 1,000 ML 125 ML IV ×2 (12:28→17:02)
[2024-03-28] MEDS: Ciprofloxacin 400 MG/200 ML BAG 200 MG IV (14:58)
--- NOTE | 2024-03-28 15:43 | HP.PCM.HOS_ITS ---
HPI - General General Date of Admission: 03/28/24 Date of Service: 03/28/24 Chief Complaint: diarrhea HPI Narrative GT JOHNSON, is a 58 F who presents with diarrhea. Symptoms began on January 19 when she had a rash down to [place] because it was concerning that her brother may (he actually survived and is doing well on) but she did bring her mother home with her. She has been having diarrhea ever since. Has seen Dr. Perea in the office and had a CAT scan that showed colitis. She had been on antibiotics and was taking antibiotics with ciprofloxacin and metronidazole and has had no improvement despite antibiotics. She states that she has some coffee-ground looking material as well as some bilious material within her liquid stool. Has never had this problem before. I spoke with Dr. ePrea who said that he is planning on referring the patient to Dr. Gonzalez for outpatient colonoscopy. Patient presented here and had a repeat CAT scan that showed progression of the colitis as compared to prior study. Persistent fluid collections adjacent to the cecum, diffuse bladder wall thickening. Stable heterogenous appearance of lateral midportion of the right lobe of the liver. In emergency room, patient received fluids as well as ciprofloxacin and metronidazole. [facility] Medical History Left hip pain Vitamin D deficiency, unspecified Insulin resistance Vitamin B12 deficiency GERD (gastroesophageal reflux disease) Hypothyroidism IBS (irritable bowel syndrome) Hypertension TMJ (dislocation of temporomandibular joint) History of gallstones History of basal cell carcinoma History of fracture of leg Arthritis Seasonal allergies Home Medications ?Medication ?Instructions ?Recorded ?Last Taken ?Type aspirin 81 mg chewable tablet 81 mg PO DAILY@0800 04/24/16 Unknown History biotin 5,000 mcg disintegrating 10,000 mcg PO DAILY 12/18/20 Unknown History tablet loratadine 10 mg tablet 10 mg PO DAILY 12/18/20 Unknown History metoprolol succinate 25 mg 25 mg PO BID #180 tabs 06/29/23 Unknown Rx tablet,extended release 24 hr paroxetine HCl 10 mg tablet 10 mg PO DAILY #90 tabs 06/29/23 Unknown Rx thyroid (pork) 60 mg tablet 60 mg PO DAILY #90 tabs 08/18/23 Unknown Rx ([place] Thyroid) triamterene 37.5 1 tab PO DAILY #90 tabs 08/30/23 Unknown Rx mg-hydrochlorothiazide 25 mg tablet melatonin 10 mg capsule 50 mg PO HS 12/15/23 Unknown History meloxicam 7.5 mg tablet 7.5 mg PO DAILY #90 tabs 12/15/23 Unknown Rx omeprazole 40 mg capsule,delayed 40 mg PO DAILY PRN 12/15/23 Unknown History release alcohol swabs 1 pad topical QMONTH #100 ea 12/22/23 Unknown Rx cyanocobalamin (vitamin B-12) 1,000 mcg IM QMONTH #10 mL 12/22/23 Unknown Rx 1,000 mcg/mL injection solution syringe with needle 3 mL 23 gauge #100 ea 12/22/23 Unknown Rx x 1 1/2 (CareTouch Luer Lock Syringe with needle) ciprofloxacin HCl 500 mg tablet 500 mg PO BID 10 days #20 tabs 03/20/24 Unknown Rx (Cipro) metronidazole 500 mg tablet 500 mg PO TID 10 days #30 tabs 03/20/24 Unknown Rx Allergy/AdvReac Type Severity Reaction Status Date / Time lisinopril Allergy Angioedema Verified 03/28/24 09:57 Penicillins Allergy Anaphylaxis Verified 03/28/24 09:57 prednisone Allergy Other Verified 03/28/24 09:57 Sulfa (Sulfonamide Allergy Hives Verified 03/28/24 09:57 Antibiotics) Tetracyclines Allergy Hives Verified 03/28/24 09:57 Family History Father Alcoholism Cancer Myocardial infarction Hypertension Mother Anemia Grandmother Breast cancer Brother Cancer Seizures Grandfather Myocardial infarction Other Heart disease Hyperlipemia Surgical History History of appendectomy History of hysterectomy History of cholecystectomy History of tonsillectomy Social History Smoking Status: Current every day smoker tobacco type: cigarettes Tobacco: How many years used: 20 alcohol intake: current alcohol intake frequency: a few times a month substance use type: does not use what type of physical activity do you participate in: none ROS ROS Narrative As contracted thrush since initiating antibiotics. Patient has lost roughly about 20 pounds during this time. Does feel slightly lightheaded when she does stand. All review of systems were negative except as mentioned above in the history of present illness and the other review of systems. Vital Signs Vital Signs Vital Signs: 03/28/24 09:58 03/28/24 11:57 03/28/24 13:00 Temperature 36.6 C Temperature Source Temporal Pulse Rate 84 65 58 L Respiratory Rate 16 16 16 Blood Pressure 116/89 H 117/73 104/69 Blood Pressure Mean 98 87 80 Pulse Ox 98 100 97 Oxygen Delivery Method Room Air Room Air Room Air Weight Weight: 69.581 kg Body Mass Index (BMI) 26.3 Physical Exam Narrative - Physical Exam General: Alert, Oriented x3, Cooperative HEENT: Atraumatic, PERRLA, EOMI, Normocephalic Oral: Moist Mucosa, thrush Neck: Supple, No JVD, Negative Carotid Bruits Lungs: Clear to auscultation, Normal air movement Cardiovascular: Regular rate, Normal S1, Normal S2, No murmurs Abdomen: Bowel Sounds Present, Soft, Non Tender, Non-Distended, No Hepato- splenomegaly Extremities: No clubbing, No cyanosis, No edema, Capillary Refill Less than 3 Seconds Skin: No rashes, No breakdown Musculoskeletal: No Tenderness to Palpation of Joints or Extremities Neurological: Neuro grossly intact Psych/Mental Status: Normal Affect, Appropriate Results Lab / Micro Data 03/28/24 10:35 03/28/24 10:35 Labs: Laboratory Results - last 24 hr 03/28/24 10:35: WBC 9.6, RBC 4.70, Hgb 14.9, Hct 45.1, MCV 96.0, MCH 31.7, MCHC 33.0, RDW Std Deviation 47.1 H, RDW Coeff of Brenden 13.3, Plt Count 360, MPV 9.5, Immature Gran % (Auto) 0.300, Neut % (Auto) 71.1 H, Lymph % (Auto) 12.9 L, [place] % (Auto) 9.9, Eos % (Auto) 5.3 H, Baso % (Auto) 0.5, Absolute Neuts (auto) 6.8, Absolute Lymphs (auto) 1.24, Nucleated RBC % 0, Sodium 135 L, Potassium 4.0, Chloride 105, Carbon Dioxide 26.0, Anion Gap 4 L, BUN 15, Creatinine 1.25 H, Estim Creat Clear Calc 46.97, Est GFR (MDRD) Af Amer 57 L, Est GFR (MDRD) Non-Af 47 L, BUN/Creatinine Ratio 12.0, Glucose 132 H, Calcium 9.3, Total Bilirubin 0.40, Direct Bilirubin 0.18, AST 16, ALT 16, Alkaline Phosphatase 77, Total Protein 7.1, Albumin 3.7, Globulin 3.4, Lipase 58 Micro: Microbiology 03/28/24 10:35 Stool Stool Lactoferrin - Final 03/28/24 10:35 Stool Clostridioides difficile (PCR) - Final 03/28/24 10:35 Stool Stool Occult Blood (NISSA) - Final Occult Blood Positive Imaging Radiology Impression Abdomen/Pelvis CT 03/28/24 10:26 IMPRESSION: There has been a progression of the colitis as compared to prior study. Persistent fluid collection adjacent to the cecum. Diffuse bladder wall thickening. Stable heterogeneous appearance of the lateral midportion of the right lobe of the liver. Electronically Signed: Jef Solis MD at 12:23 EDT , Assessment & Plan Assessment/Plan (1) Colitis: PLAN: Plan Colitis * Persistent over the past couple months. Did not respond to antibiotics with Cipro and metronidazole. * I suspect this is more likely inflammatory bowel disease such as Crohn's disease or ulcerative colitis. I did speak with Dr. Perea who advised additional antibiotics but given her lack of a fever, normal white count and lack of any improvement with the previous antibiotics and would hold off on antibiotics until gastroenterology can evaluate. * Will treat her supportively at this time with IV fluids, antiemetics, pain control. Her C. difficile is negative so patient may have loperamide as needed. Thrush * Secondary to recent antibiotics. Nystatin. Moderate protein calorie malnutrition * Secondary to GI losses and lack of proper nutritional intake given the ongoing diarrhea. * When appropriate, add supplements. Low utility for supplements at this time given her ongoing diarrhea. Chronic conditions * Hypertension: Continue with metoprolol. Hold her diuretics. * Hypothyroidism: Continue with Waldo Thyroid. VTE prophylaxis: SCDs anticipation the patient may require colonoscopy with possible biopsies. CODE STATUS: Addressed with the patient. Patient wishes to be full code. Charges/Coding Visit Charges Inpatient E&M: 20878 Init Hosp L3
[2024-03-28] MEDS: NYSTATIN 500,000 UNIT/5 ML UDC 500000 UNIT PO ×2 (17:12→20:22)
[2024-03-28] MEDS: 0.9% Saline Lock 10 ML Syringe IV ×2 (17:12→19:02)
[2024-03-28] MEDS: proCHLORPERazine 10 MG/2 ML Vial 5 MG IV (19:02)
[2024-03-28] MEDS: Menthol/Lanolin/Calamine/Znox 113 GM Tube 1 APPLIC TOPICAL (22:00)
[2024-03-28] MEDS: Acetaminophen 325 MG Tablet 650 MG PO (23:59)
[2024-03-29] MEDS: 0.9% Normal Saline (1000mL) 1,000 ML 125 ML IV ×4 (00:02→22:34)
[2024-03-29 03:45] VITALS: BP 112/80; PULSE 56; RESP 16; TEMP 36.6; O2SAT 96
[2024-03-29] MEDS: Loperamide 2 MG Capsule PO ×2 (03:53)
[2024-03-29] MEDS: Ondansetron 4 MG/2 ML Vial IV ×3 (03:53→19:18)
[2024-03-29] MEDS: Thyroid 60 MG Tablet PO (03:53)
--- NOTE | 2024-03-29 05:55 | EKG12_ITS ---
Test Reason : PRE-OP Blood Pressure : / mmHG Vent. Rate : 057 BPM Atrial Rate : 057 BPM P-R Int : 186 ms QRS Dur : 094 ms QT Int : 422 ms P-R-T Axes : 065 084 055 degrees QTc Int : 410 ms Sinus bradycardia Otherwise normal ECG When compared with ECG of 14-MAR-2018 20:35, Vent. rate has decreased BY 28 BPM Confirmed by BELLA ZAMORA, TRUDI ([id number]), deputy editor in chief ART GOMEZ ([id number]) on 03/30/2024 10:10:06 AM Referred By: KELSEY Confirmed By:TRUDI BLANCO MD
[2024-03-29 08:00] VITALS: BP 119/77; PULSE 74; RESP 18; TEMP 37.2; O2SAT 95
[2024-03-29 08:11] LABS: Absolute Lymphocyte Count 1.65 X10^3/uL (0.83-4.51); Absolute Neutrophil Count 3.1 X10^3/uL (2.0-7.7); Basophil# 0.05 X10^3/uL; Basophil% 0.8 % (0-1); Eosinophil# 0.47 X10^3/uL; Eosinophils% 7.9 % (0-5); Hematocrit 40.1 % (37-47); Lymphocyte # 1.65 X10^3/ul (0.83-4.51); Lymphocyte % 27.8 % (19-41); Mean Corp Hgb Conc 32.4 g/dL (32-36); Mean Corpuscular Hgb 31.9 pg (27.0-32.0); Mean Corpuscular Volume 98.5 fL (81-99); Mean Platelet Vol. 9.7 fl (6.2-12.0); Monocyte# 0.68 X10^3/uL; Monocyte% 11.5 % (0-10); NRBC Flagged by Analyzer 0 % (0-5); Neutrophil # 3.06 X10^3/uL (2.7-7.7); Neutrophil % 51.7 % (47-70); Platelet Count 303 K/mm3 (150-450); RBC Distribution Width CV 13.5 % (11.6-14.6); RBC Distribution Width SD 49.1 fl (35.1-43.9); Red Blood Count 4.07 M/mm3 (4.2-5.4); White Blood Count 5.9 K/mm3 (4.4-11.0)
[2024-03-29 08:54] LABS: ALB/GLOB Ratio 1.2 RATIO (0.9-2.4); AST(SGOT) 17 U/L (15-37); Alanine Aminotransfer ALT/SGPT 15 U/L (13-56); Albumin, Serum 3.2 g/dL (3.2-5.0); Alkaline Phosphatase 59 U/L (45-117); Anion Gap 4 (5-15); BUN 9 mg/dL (7-18); BUN/Creat Ratio 8.9 RATIO (10-20); Calcium,Total 8.9 mg/dL (8.5-10.1); Chloride 112 mmol/L (98-107); Creatinine, Serum 1.01 mg/dL (0.55-1.02); EST Glomerular Filtration Rate 60 mL/min (>60); Est Glom Filt Rate - Afr Amer 72 mL/min (>60); Estimated Creatinine Clearance 57.92 ml/min; Globulin 2.7 g/dL (2.2-4.2); Glucose 94 mg/dL (74-106); Potassium 3.6 mmol/L (3.5-5.1); Protein, Total 5.9 g/dL (6.4-8.2); Sodium Level 139 mmol/L (136-145); Thyroid Stim Hormone (TSH) 7.55 uIU/mL (0.358-3.74)
[2024-03-29] MEDS: Loratadine 10 MG Tablet PO (09:14)
[2024-03-29] MEDS: NYSTATIN 500,000 UNIT/5 ML UDC 500000 UNIT PO ×3 (09:14→18:11)
[2024-03-29 09:15] VITALS: PULSE 67
[2024-03-29] MEDS: Metoprolol(XL)Succ 25 MG Tablet PO (09:15)
[2024-03-29] MEDS: Pantoprazole Sodium 40 MG Tablet PO (09:16)
[2024-03-29] MEDS: Menthol/Lanolin/Calamine/Znox 113 GM Tube 1 APPLIC TOPICAL ×2 (09:16→20:18)
[2024-03-29] MEDS: PARoxetine 10 MG Tablet PO (09:16)
--- NOTE | 2024-03-29 10:46 | CASEMGMT ---
RN CM Assessment Face to Face with patient for initial transition planning/care coordination assessment. RN CM introduced self and role at [facility], pt voices understanding. Pt is A&Ox4 and is resting comfortably in bed and is calm. Care providers, pharmacy, and demographics verified. Admitting dx: Colitis PCP: Melly Rodriguez Specialists: Eliazar (Genral Surgeon) Preferred Pharmacy: [facility] [place] Insurance: [employer]/ [employer] Prescription Benefit: Yes LNOK: Tank Le (H) Living Arrangements: Pt lives with her and 88 y/o mother in a single story home with one step to enter. Pt states that her and her care for the pt mother at home ADLs/IADLs: Ind Transportation: Self, . Denies needs DME: Pt states that she has the following at home for her mother: FWW, Cane, BP Monitor, and hospital bed. HHC/SNF: denies history or needs Pt?s goal: home Plan: home no needs. Pt states that she is independent and that she feels safe returning home without any additional needs. Pt states that her is able to care for her mother during this time. Pt is concerned for Cancer. However, pt denies wanting to speak with the Hair Sample Matcher or the pt advocate at this time. Pt denies any further needs from this RN CM. CM to follow to ensure safe DC from [facility]. Susi Del Rosario RN, CM
[2024-03-29] MEDS: 0.9% Saline Lock 10 ML Syringe IV ×2 (11:24→19:18)
[2024-03-29] MEDS: Acetaminophen 325 MG Tablet 650 MG PO (15:55)
[2024-03-29 16:00] VITALS: BP 131/79; PULSE 74; RESP 18; TEMP 37.2; O2SAT 96
--- NOTE | 2024-03-29 17:19 | PN.HOSP_ITS ---
Subjective Subjective Doing well, no issues overnight. Tolerating a diet without any significant pain but she still has diarrhea Objective Data Objective Data Vital Signs: Vital Signs Temp Pulse Resp BP Pulse Ox O2 Del Method 98.9 F 74 18 131/79 H 96 Room Air 03/29/24 16:00 03/29/24 16:00 03/29/24 16:00 03/29/24 16:00 03/29/24 16:00 03/29/24 16:00 Oxygen Delivery Method Room Air Weight: 152 lb 1.903 oz Body Mass Index (BMI) 26.1 Intake & Output: Intake and Output for Last 24 Hours 03/28/24 03/29/24 03/30/24 03:59 03:59 03:59 Intake Total 2845.83 / 2845.83 2891.67 / 2891.67 Balance 2845.83 / 2845.83 2891.67 / 2891.67 Lab / Micro Data 03/29/24 07:30 03/29/24 07:30 Labs: Laboratory Results - last 24 hr 03/29/24 07:30: WBC 5.9, RBC 4.07 L, Hgb 13.0, Hct 40.1, MCV 98.5, MCH 31.9, MCHC 32.4, RDW Std Deviation 49.1 H, RDW Coeff of Brenden 13.5, Plt Count 303, MPV 9.7, Immature Gran % (Auto) 0.300, Neut % (Auto) 51.7, Lymph % (Auto) 27.8, [place] % (Auto) 11.5 H, Eos % (Auto) 7.9 H, Baso % (Auto) 0.8, Absolute Neuts (auto) 3.1, Absolute Lymphs (auto) 1.65, Nucleated RBC % 0, Sodium 139, Potassium 3.6, Chloride 112 H, Carbon Dioxide 23.0, Anion Gap 4 L, BUN 9, Creatinine 1.01, Estim Creat Clear Calc 57.92, Est GFR (MDRD) Af Amer 72, Est GFR (MDRD) Non-Af 60, BUN/Creatinine Ratio 8.9 L, Glucose 94, Calcium 8.9, Total Bilirubin 0.50, AST 17, ALT 15, Alkaline Phosphatase 59, Total Protein 5.9 L, Albumin 3.2, Globulin 2.7, Albumin/Globulin Ratio 1.2, TSH 7.55 H Micro: Microbiology 03/28/24 22:10 Stool Enteric Bacteriology - Final 03/28/24 10:35 Stool Stool Lactoferrin - Final 03/28/24 10:35 Stool Clostridioides difficile (PCR) - Final 03/28/24 10:35 Stool Stool Occult Blood (NISSA) - Final Occult Blood Positive Physical Exam Narrative General: Alert, Oriented x3, Cooperative, No apparent distress HEENT: Atraumatic, PERRLA, EOMI, Normocephalic Oral: Moist Mucosa Neck: Supple, No JVD Lungs: Clear to auscultation, Normal air movement, No rhonchi, No wheeze, No rales Cardiovascular: Regular rate, Regular Rhythm, Normal S1, Normal S2, No murmurs Abdomen: Soft, right lower and right mid abdominal pain palpation, Non- Distended, No Hepato-splenomegaly Extremities: No edema, Capillary Refill Less than 3 Seconds Skin: No rashes, No breakdown Musculoskeletal: No Tenderness to Palpation of Joints or Extremities Neurological: No focal neurological deficits, Motor Exam 5/5 strength throughout, Sensory exam intact to light touch and pain Psych/Mental Status: Normal Affect, Appropriate Assessment & Plan Assessment/Plan (1) Colitis: PLAN: Plan 1. Right hemicolitis/GERD ? She has been on antibiotics multiple times without improvement, stool cultures are negative and C. difficile is negative ? Will discontinue antibiotics on admission as this is potentially a laboratory in nature and will consult GI ? May benefit from steroids at GIs discretion ? She did have a colonoscopy in 2019 which was unremarkable, this will likely need to be repeated with biopsies for further evaluation ? Continue with IV fluids and antiemetics ? She is Hemoccult positive however she is not anemic ? Continue with nystatin for thrush secondary to her multiple courses of antibiotics ? Continue PPI 2. Essential HTN ? Blood pressure stable ? Can resume her home medications ? Monitor make adjustments as necessary 3. Hypothyroidism ? Stable ? Continue with her home medications 4. Anxiety/depression ? Stable ? Continue with her home medications Moderate protein calorie malnutrition * Secondary to GI losses and lack of proper nutritional intake given the ongoing diarrhea. * When appropriate, add supplements. Low utility for supplements at this time given her ongoing diarrhea. DVT: SCDs Charges/Coding Visit Charges Inpatient E&M: 61924 Subs Hosp L2
--- NOTE | 2024-03-29 17:27 | EX.PCM.CON.G ---
HPI Consult Data Date of Consult: 03/29/24 HPI Narrative Reason for Consultation: diarrhea HPI Narrative: GT JOHNSON, is a 58-year-old female presented to the emergency room with chronic diarrhea and abdominal pain. Patient notes that she has had loose stools chronically for years since her cholecystectomy. She states over the last 2 months she has had severe diarrhea now up to 4-5 times per day. She has lost approximately 20 pounds. She states that it is coffee ground and yellow bile. She stated that over the past couple days she has been having fever yesterday up to 101 today. She states that she saw Dr. Perea from surgery in February and had stool studies and a CT scan performed at the beginning of this month. She states that the CT scan showed colitis and she was placed on antibiotics (Cipro and Flagyl). Patient states that she is not any better and today could not get off the commode due to persistent diarrhea and so she decided to come to emergency. She said this all started when she went down to mushroom picker her mother in [place]. 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 She has a past medical history of eosinophilic gastroenteritis. She underwent 2 stool studies that did not show any sign of infection but was positive for white blood cells. Currently she is very nauseous and bloated. She denies any chest pain or shortness of breath. She does get some intermittent pain in bilateral distal phalanges but no swelling or rash. [facility] Medical History Post-menopausal Left hip pain Vitamin D deficiency, unspecified Insulin resistance Vitamin B12 deficiency GERD (gastroesophageal reflux disease) Hypothyroidism IBS (irritable bowel syndrome) Hypertension TMJ (dislocation of temporomandibular joint) History of gallstones History of basal cell carcinoma History of fracture of leg Arthritis Seasonal allergies Home Medications ?Medication ?Instructions ?Recorded ?Last Taken ?Type aspirin 81 mg chewable tablet 81 mg PO DAILY@0800 heart health 04/24/16 03/27/24 History biotin 5,000 mcg disintegrating 10,000 mcg PO DAILY supplement, 12/18/20 03/27/24 History tablet hair loss loratadine 10 mg tablet 10 mg PO DAILY allergies 12/18/20 03/27/24 History metoprolol succinate 25 mg 25 mg PO BID #180 tabs 06/29/23 03/27/24 Rx tablet,extended release 24 hr paroxetine HCl 10 mg tablet 10 mg PO DAILY mood #90 tabs 06/29/23 03/27/24 Rx thyroid (pork) 60 mg tablet 60 mg PO DAILY #90 tabs 08/18/23 03/28/24 Rx ([place] Thyroid) triamterene 37.5 1 tab PO DAILY #90 tabs 08/30/23 03/27/24 Rx mg-hydrochlorothiazide 25 mg tablet melatonin 10 mg capsule 30 mg PO HS sleep 12/15/23 03/27/24 History meloxicam 7.5 mg tablet 7.5 mg PO DAILY #90 tabs 12/15/23 03/27/24 Rx omeprazole 40 mg capsule,delayed 40 mg PO DAILY PRN acid reflex 12/15/23 Unknown History release alcohol swabs 1 pad topical QMONTH injec #100 ea 12/22/23 Unknown Rx cyanocobalamin (vitamin B-12) 1,000 mcg IM QMONTH #10 mL 12/22/23 03/22/24 Rx 1,000 mcg/mL injection solution syringe with needle 3 mL 23 gauge #100 ea 12/22/23 Unknown Rx x 1 1/2 (CareTouch Luer Lock Syringe with needle) ciprofloxacin HCl 500 mg tablet 500 mg PO BID 10 days #20 tabs 03/20/24 03/27/24 Rx (Cipro) metronidazole 500 mg tablet 500 mg PO TID 10 days #30 tabs 03/20/24 03/27/24 Rx Allergy/AdvReac Type Severity Reaction Status Date / Time lisinopril Allergy Nausea/Vom/ Verified 03/28/24 16:10 Diarrhea Penicillins Allergy Anaphylaxis Verified 03/28/24 09:57 prednisone Allergy Anaphylaxis Verified 03/28/24 16:10 Sulfa (Sulfonamide Allergy Hives Verified 03/28/24 09:57 Antibiotics) Tetracyclines Allergy Nausea/Vom/ Verified 03/28/24 16:10 Diarrhea Family History Father Alcoholism Cancer Myocardial infarction Hypertension Mother Anemia Grandmother Breast cancer Brother Cancer Seizures Grandfather Myocardial infarction Other Heart disease Hyperlipemia Surgical History History of appendectomy History of hysterectomy History of cholecystectomy History of tonsillectomy Social History Smoking Status: Current every day smoker tobacco type: cigarettes Tobacco: How many years used: 20 alcohol intake: current alcohol intake frequency: a few times a month substance use type: does not use what type of physical activity do you participate in: none ROS Review of Systems ROS Unobtainable: other Constitutional Constitutional: Denies fatigue, fever(s), poor appetite, weight gain or weight loss ENT HEENT: Denies mouth lesions Cardiovascular Cardiovascular: Denies abdominal bloating, abdominal edema or abdominal pain Respiratory/Chest Respiratory/Chest: Denies change in mental status, change in phlegm color, chest congestion or chest tightness Gastrointestinal Gastrointestinal: Denies belching, bloating, change in bowel habits, change in stool character, chewing difficulty, coffee ground emesis, constipation, cramping, diarrhea, dyspepsia, dysphagia, early satiety, excessive flatus, fecal incontinence, heartburn, hematemesis, hematochezia, hemorrhoids, loose stools, melena, nausea, odynophagia, rectal bleeding, tenesmus, vomiting or weight changes Genitourinary Genitourinary: Denies abdominal discomfort, burning urination or itching Musculoskeletal Musculoskeletal: Reports as per HPI; Denies muscle weakness or myalgias Integumentary Integumentary: Denies jaundice Neurologic Neurologic: Denies lack of coordination or weakness Psychiatric Psychiatric: Denies confusion, depression, memory loss, mood swings, paranoia or suicidal ideation Endocrine Endocrinology: Denies systems reviewed and no addt'l complaints, except as documented Hematologic/Lymphatic Hematologic/Lymphatic: Denies anemia, easy bleeding, easy bruising or lymphadenopathy Allergic/Immunologic Allergic/Immunologic: Denies systems reviewed and no addt'l complaints, except as documented Physical Exam Narrative General: Alert, Oriented x3, Cooperative, No apparent distress HEENT: Atraumatic, PERRLA, EOMI, Normocephalic Oral: Moist Mucosa Neck: Supple, No JVD Lungs: Clear to auscultation, Normal air movement, No rhonchi, No wheeze, No rales Cardiovascular: Regular rate, Regular Rhythm, Normal S1, Normal S2, No murmurs Abdomen: Soft, right lower and right mid abdominal pain palpation, Non-Distended, No Hepato-splenomegaly Extremities: No edema, Capillary Refill Less than 3 Seconds Skin: No rashes, No breakdown Musculoskeletal: No Tenderness to Palpation of Joints or Extremities Neurological: No focal neurological deficits, Motor Exam 5/5 strength throughout, Sensory exam intact to light touch and pain Psych/Mental Status: Normal Affect, Appropriate Lab / Micro Data 03/29/24 07:30 03/29/24 07:30 Labs: Laboratory Results - last 24 hr 03/29/24 07:30: WBC 5.9, RBC 4.07 L, Hgb 13.0, Hct 40.1, MCV 98.5, MCH 31.9, MCHC 32.4, RDW Std Deviation 49.1 H, RDW Coeff of Brenden 13.5, Plt Count 303, MPV 9.7, Immature Gran % (Auto) 0.300, Neut % (Auto) 51.7, Lymph % (Auto) 27.8, [place] % (Auto) 11.5 H, Eos % (Auto) 7.9 H, Baso % (Auto) 0.8, Absolute Neuts (auto) 3.1, Absolute Lymphs (auto) 1.65, Nucleated RBC % 0, Sodium 139, Potassium 3.6, Chloride 112 H, Carbon Dioxide 23.0, Anion Gap 4 L, BUN 9, Creatinine 1.01, Estim Creat Clear Calc 57.92, Est GFR (MDRD) Af Amer 72, Est GFR (MDRD) Non-Af 60, BUN/Creatinine Ratio 8.9 L, Glucose 94, Calcium 8.9, Total Bilirubin 0.50, AST 17, ALT 15, Alkaline Phosphatase 59, Total Protein 5.9 L, Albumin 3.2, Globulin 2.7, Albumin/Globulin Ratio 1.2, TSH 7.55 H Micro: Microbiology 03/28/24 22:10 Stool Enteric Bacteriology - Final Assessment & Plan Assessment/Plan (1) Colitis: (2) Diarrhea: PLAN: Plan 58-year-old with 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 Her white blood cell count does have peripheral eosinophilia which is nonspecific but could be secondary to eosinophilic gastroenteritis. Also in the differential diagnosis for peripheral eosinophilia would be hyper IgE syndrome, Behcet's syndrome, postinfectious IBS, collagen vascular disease, inflammatory bowel disease, celiac disease which are all TAC to immune responses to possible infection. It seems as if her symptoms are cytokine induced due to her fever and B symptoms. She should undergo EGD and colonoscopy for biopsies of her esophagus stomach small bowel and colon to see if she has eosinophilic gastroenteritis. She should also undergo inflammatory bowel disease testing, JAY would protein electrophoresis and autoimmune testing. Charges/Coding Visit Charges Inpatient E&M: 98150 Init Hosp L3
[2024-03-29] MEDS: Bisacodyl 5 MG Tablet 20 MG PO (18:11)
[2024-03-29] MEDS: Morphine 2 MG/ML Syringe IV (19:18)
[2024-03-29] MEDS: Polyethylene Glycol 3350 BOWEL PREP 1 BOTTLE PO (20:17)
[2024-03-29 20:32] VITALS: BP 114/89; PULSE 68; RESP 16; TEMP 37.2; O2SAT 100
[2024-03-29 20:48] LABS: Erythrocyte Sedimentation Rate 5 mm/hr (0-30)
[2024-03-29 21:05] LABS: CRP < 2.90 mg/L (0.0-3.0)
[2024-03-30] VITALS (12 sets, daily range): BP systolic 93–119; BP diastolic 53–76; PULSE 72–99; RESP 16; TEMP 36.3–38.4; O2SAT 97–100
[2024-03-30] MEDS: 0.9% Normal Saline (1000mL) 1,000 ML 125 ML IV ×2 (06:09→16:01)
[2024-03-30 06:34] LABS: Absolute Lymphocyte Count 1.06 X10^3/uL (0.83-4.51); Absolute Neutrophil Count 2.8 X10^3/uL (2.0-7.7); Basophil# 0.03 X10^3/uL; Basophil% 0.6 % (0-1); Eosinophil# 0.29 X10^3/uL; Eosinophils% 5.8 % (0-5); Hematocrit 38.5 % (37-47); Hemoglobin 12.6 g/dL (12.0-15.0); Lymphocyte # 1.06 X10^3/ul (0.83-4.51); Lymphocyte % 21.2 % (19-41); Mean Corp Hgb Conc 32.7 g/dL (32-36); Mean Corpuscular Hgb 32.1 pg (27.0-32.0); Mean Platelet Vol. 9.7 fl (6.2-12.0); Monocyte# 0.84 X10^3/uL; Monocyte% 16.8 % (0-10); NRBC Flagged by Analyzer 0 % (0-5); Neutrophil # 2.76 X10^3/uL (2.7-7.7); Neutrophil % 55.4 % (47-70); Platelet Count 260 K/mm3 (150-450); RBC Distribution Width CV 13.4 % (11.6-14.6); RBC Distribution Width SD 48.5 fl (35.1-43.9); Red Blood Count 3.93 M/mm3 (4.2-5.4)
[2024-03-30 07:07] LABS: Anion Gap 7 (5-15); BUN 4 mg/dL (7-18); BUN/Creat Ratio 4.2 RATIO (10-20); Calcium,Total 8.7 mg/dL (8.5-10.1); Chloride 110 mmol/L (98-107); Creatinine, Serum 0.96 mg/dL (0.55-1.02); EST Glomerular Filtration Rate 63 mL/min (>60); Est Glom Filt Rate - Afr Amer 77 mL/min (>60); Estimated Creatinine Clearance 60.93 ml/min; Glucose 100 mg/dL (74-106); Potassium 3.4 mmol/L (3.5-5.1); Sodium Level 137 mmol/L (136-145)
[2024-03-30] MEDS: Acetaminophen 325 MG Tablet 650 MG PO ×2 (07:59→16:03)
[2024-03-30] MEDS: Metoprolol(XL)Succ 25 MG Tablet PO ×2 (07:59→19:51)
[2024-03-30] MEDS: Thyroid 60 MG Tablet PO (08:00)
[2024-03-30] MEDS: PARoxetine 10 MG Tablet PO (08:00)
[2024-03-30] MEDS: Pantoprazole Sodium 40 MG Tablet PO (08:00)
[2024-03-30] MEDS: Loratadine 10 MG Tablet PO (08:01)
[2024-03-30] MEDS: Menthol/Lanolin/Calamine/Znox 113 GM Tube 1 APPLIC TOPICAL ×2 (08:02→19:51)
--- NOTE | 2024-03-30 09:44 | PN.HOSP_ITS ---
Subjective Subjective Doing well, no issues overnight. abdominal pain is improved Objective Data Objective Data Vital Signs: Vital Signs Temp Pulse Resp BP Pulse Ox O2 Del Method 101.1 F H 99 16 99/58 L 98 Room Air 03/30/24 08:38 03/30/24 08:38 03/30/24 08:38 03/30/24 08:38 03/30/24 08:38 03/30/24 08:38 Oxygen Delivery Method Room Air Weight: 152 lb 1.903 oz Body Mass Index (BMI) 26.1 Intake & Output: Intake and Output for Last 24 Hours 03/29/24 03/30/24 03/31/24 03:59 03:59 03:59 Intake Total 2845.83 / 2845.83 4579.17 / 4579.17 947.92 / 947.92 Balance 2845.83 / 2845.83 4579.17 / 4579.17 947.92 / 947.92 Lab / Micro Data 03/30/24 05:56 03/30/24 05:56 Labs: Laboratory Results - last 24 hr 03/29/24 07:30: ESR 5, C-React Prot Ext Range < 2.90, Folate 12.60 03/30/24 05:56: WBC 5.0, RBC 3.93 L, Hgb 12.6, Hct 38.5, MCV 98.0, MCH 32.1 H, MCHC 32.7, RDW Std Deviation 48.5 H, RDW Coeff of Brenden 13.4, Plt Count 260, MPV 9.7, Immature Gran % (Auto) 0.200, Neut % (Auto) 55.4, Lymph % (Auto) 21.2, [place] % (Auto) 16.8 H, Eos % (Auto) 5.8 H, Baso % (Auto) 0.6, Absolute Neuts (auto) 2.8, Absolute Lymphs (auto) 1.06, Nucleated RBC % 0, Sodium 137, Potassium 3.4 L , Chloride 110 H, Carbon Dioxide 20.0 L, Anion Gap 7, BUN 4 L, Creatinine 0.96, Estim Creat Clear Calc 60.93, Est GFR (MDRD) Af Amer 77, Est GFR (MDRD) Non-Af 63, BUN/Creatinine Ratio 4.2 L, Glucose 100, Calcium 8.7 Micro: Microbiology 03/28/24 22:10 Stool Enteric Bacteriology - Final 03/28/24 10:35 Stool Stool Lactoferrin - Final 03/28/24 10:35 Stool Clostridioides difficile (PCR) - Final 03/28/24 10:35 Stool Stool Occult Blood (NISSA) - Final Occult Blood Positive Physical Exam Narrative General: Alert, Oriented x3, Cooperative, No apparent distress HEENT: Atraumatic, PERRLA, EOMI, Normocephalic Oral: Moist Mucosa Neck: Supple, No JVD Lungs: Clear to auscultation, Normal air movement, No rhonchi, No wheeze, No rales Cardiovascular: Regular rate, Regular Rhythm, Normal S1, Normal S2, No murmurs Abdomen: Soft, mild TTP right side, Non-Distended, No Hepato-splenomegaly Extremities: No edema, Capillary Refill Less than 3 Seconds Skin: No rashes, No breakdown Musculoskeletal: No Tenderness to Palpation of Joints or Extremities Neurological: No focal neurological deficits, Motor Exam 5/5 strength throughout, Sensory exam intact to light touch and pain Psych/Mental Status: Normal Affect, Appropriate Assessment & Plan Assessment/Plan (1) Colitis: PLAN: Plan 1. Right hemicolitis/GERD ? She has been on antibiotics multiple times without improvement, stool cultures are negative and C. difficile is negative ? Will discontinue antibiotics on admission as this is potentially a laboratory in nature and will consult GI ? May benefit from steroids at GIs discretion ? She did have a colonoscopy in 2019 which was unremarkable, plan for repeat colonoscopy and EGD today ? Continue with IV fluids and antiemetics ? She is Hemoccult positive however she is not anemic ? Continue with nystatin for thrush secondary to her multiple courses of antibiotics ? Continue PPI 2. Essential HTN ? Blood pressure stable ? Can resume her home medications ? Monitor make adjustments as necessary 3. Hypothyroidism ? Stable ? Continue with her home medications 4. Anxiety/depression ? Stable ? Continue with her home medications Moderate protein calorie malnutrition * Secondary to GI losses and lack of proper nutritional intake given the ongoing diarrhea. * When appropriate, add supplements. Low utility for supplements at this time given her ongoing diarrhea. DVT: SCDs Charges/Coding Visit Charges Inpatient E&M: 48568 Subs Hosp L2
--- NOTE | 2024-03-30 11:31 | NURSING ---
pt to endo
--- NOTE | 2024-03-30 12:30 | COLBX_PTH ---
PATIENT: GT JOHNSON LOC: [facility] U#:[id number] AGE/SX: 58/F ROOM: IN321 RE03/28/[address]: Dr. Eduard Ellington MD : 1965 BED: 1 DIS: 04/01/2024 SPEC #: [id number] RECD: 03/30/24 15:29 STATUS: IMANI ESCOBEDO #: [id number] RENE: 03/30/24 12:[address]: Camilo Gonzalez DEPT: SURGICAL PATHOLOGY RECD BY: Nataliia Melo ENTERED: 04/02/24 08:45 SP TYPE: COLON BX SLOAN DR: DO Dr. Melly Suarez MD Dr. Nicholas F Kotsonis, MD Tissues: A - Duodenum, NOS B - COLON BIOPSY Procedures: Trichrome (control) Special Stain Group I Surgery Specimen Level IV HEADER OPERATION: Colonoscopy with biopsies, EGD with biopsies PRE-OP DIAGNOSIS: Colitis, diarrhea TISSUE SUBMITTED: A- Duodenum biopsy, B- Random colon biopsy MICROSCOPIC DIAGNOSIS A. Duodenum, biopsy: Fragments of duodenal mucosa with mild villous blunting. B. Colon, random biopsy: Fragments of colonic mucosa with changes consistent with collagenous colitis. See comment. Wendy 04/03/2024 COMMENT B. Trichrome stain with matched control is used in the evaluation of the specimen and shows thickening of subepithelial collagen band. Correlation with clinical, endoscopic findings and appropriate follow up are necessary. MICROSCOPIC DESCRIPTION Slides are reviewed. GROSS DESCRIPTION A. Received in fixative is one container labeled with the patient's name and designated Duodenum biopsy. The specimen consists of two irregular fragments of light abel soft tissue that in aggregate measure 0.6 x 0.3 x 0.1 cm. The specimen is totally submitted in one cassette. B. Received in fixative is one container labeled with the patient's name and designated Random colon biopsy. The specimen consists of multiple irregular fragments of light abel soft tissue that in aggregate measure 2.0 x 0.5 x 0.1 cm. The specimen is totally submitted in one cassette. JAMES/ 04/02/2024 TC:3 CPT:29718y6,75588
--- NOTE | 2024-03-30 12:50 | PRE.ANES_ITS ---
ASA Classification* ASA Classification ASA Classification: 2 Assessment & Plan Anesthesia* Anesthesia Assessment Anesthesia Assessment: Discussed sedation and/or anesthesia options, risks, benefits, and alternatives with patient/parents/legal guardian/POA. Questions invited. The patient/parents/legal guardian/POA seems to understand and agrees to proceed with anesthesia plan. Reviewed the physical assessment, medical history, allergy history and patient home medications list prior to surgery/procedure/anesthetic and documented any changes. Performed airway and anesthesia risk assessments. Anesthesia Type Anesthesia Type: MAC History Source History Obtained from:: Patient and Chart Anesthesia Focused Assessment* Temperature: 99 F Pulse Rate: 99 Blood Pressure: 99/58 Respiratory Rate: 16 Pulse Ox: 98 Oxygen Delivery Method: Room Air Airway Assessment Mouth opens: >3 cm Mallampati Score: I Teeth Condition: Chipped/Broken (Left lower molar is broken) Neck Range of motion (ROM): Full ROM Pertinent Findings EKG Pertinent Findings:: Sinus bradycardia Focused Labs Anesthesia Preop lab: CBC WBC 5.0 K/mm3 (4.4-11.0) 03/30/24 05:56 RBC 3.93 M/mm3 (4.2-5.4) L 03/30/24 05:56 Hgb 12.6 g/dL (12.0-15.0) 03/30/24 05:56 Hct 38.5 % (37-47) 03/30/24 05:56 Plt Count 260 K/mm3 (150-450) 03/30/24 05:56 CHEMISTRY Potassium 3.4 mmol/L (3.5-5.1) L 03/30/24 05:56 Sodium 137 mmol/L (136-145) 03/30/24 05:56 Magnesium 2.2 mg/dL (1.6-2.6) 12/15/23 11:00 BUN 4 mg/dL (7-18) L 03/30/24 05:56 Creatinine 0.96 mg/dL (0.55-1.02) 03/30/24 05:56 Glucose 100 mg/dL (74-106) 03/30/24 05:56 TSH 7.55 uIU/mL (0.358-3.74) H 03/29/24 07:30 COAG PT 13.3 SECONDS (11.9-14.4) 05/30/13 03:35 Pre-Assessment Diagnosis/Proposed Procedure Planned Operative Procedure(s): EGD and Colonoscopy Anesthesia History Anesthesia History - certified surgical technologist: Anesthesia History - certified surgical technologist Hx Hospitalization Any Problems With Anesthesia No 03/28/24 20:40 Cholinesterase deficiency No 03/28/24 20:40 You/Your Family Experience No 03/28/24 20:40 fever (hyperthermia) with Relationship Recent Exposure to Contagious No 03/28/24 20:40 Disease Does patient have nerve No 03/28/24 20:40 stimulator Patient instructed to have No 03/28/24 20:40 device shut off --Does patient have Pacemaker or ICD? When Was Last Pacemaker Check QUESTION #4 FULL TEXT: You/Your Family Experience fever (hyperthermia) with Anesthesia Last Oral Intake Last Oral intake: Last Oral Intake NPO since Meds taken in AM with sips of water? Meds patient instructed to take am of surgery Any additional information?: Yes NPO since: 23:30 PONV PONV - certified surgical technologist: PONV - certified surgical technologist Female HX of Motion Sickness HX of N/V After Surgery Non-Smoker Duration of Surgery greater than 60 minutes Number of Risk Factors PONV Score Height & Weight Height & Weight: Anesthesia: Height & Weight Height 5 ft 4 in 03/29/24 16:01 Weight: 69 kg 03/29/24 16:01 Body Mass Index (BMI) 26.1 03/28/24 15:59 Respiratory Assessment Respiratory Assessment - certified surgical technologist: Respiratory Tract Infection Hx - certified surgical technologist Hx Respiratory Tract Infection No 03/28/24 20:40 STOP Sleep Apnea STOP Sleep Apnea - certified surgical technologist: STOP Sleep Apnea - certified surgical technologist Hx Hypertension Yes 03/28/24 16:02 Hx Sleep Apnea No 03/28/24 16:02 CPAP BIPAP Do you snore loudly (louder No 03/28/24 16:02 than talking or can be heard Do you often feel tired/ No 03/28/24 16:02 fatigued/ sleepy during daytime? Has anyone observed you stop No 03/28/24 16:02 breathing during sleep? STOP Results Negative 03/28/24 16:02 QUESTION #5 FULL TEXT : Do you snore loudly (louder than talking or can be heard through closed doors)? Tobacco Use History Tobacco Use History - certified surgical technologist: Tobacco Use History - certified surgical technologist Tobacco Use Smoking Status Current every day smoker 03/29/24 19:40 Hx Tobacco Use Yes 03/28/24 16:02 Years Smoking 10 03/28/24 16:02 Packs Smoked per Day 0.5 03/28/24 16:02 Smoking Cessation Date was within the last 15 years Hx Smoking Cessation Date Hx Smoking Cessation Counseling Hematologic Medial History Hematologic Hx - certified surgical technologist: Hematologic Medical Hx - drawer in Hx of Blood Transfusion No 03/28/24 16:02 Hx of Transfusion in last 3 No 03/28/24 16:02 Months Date of Last Transfusion (if within last 3 months) Ever experience any problems No 03/28/24 16:02 with transfusion(s)? Specify any problems Hx of Preganancy in last 3 No 03/28/24 16:02 Months Nurse Filling Out Transfusion [email or web address] 03/28/24 16:02 & Questions: Date: 03/28/24 03/28/24 16:02 Time: 16:04 03/28/24 16:02 Patient unable to answer at this time (ie. confused, unrespo /Reproduction History /Reproductive History - certified surgical technologist: /Reproductive Hx- certified surgical technologist Hx Now No 03/28/24 20:40 Gestational Age (in weeks): EDC: Hx Hx Para Hx Section SAB No 03/28/24 20:40 Active Medications Active Medications: Current Medications Generic Name Dose Route Start Last Admin Trade Name Freq PRN Reason Stop Dose Admin Acetaminophen 650 mg 03/28/24 15:56 03/30/24 07:59 Acetaminophen 325 Mg Tablet PO 650 mg Q6H PRN PRN Administration Pain 1-10 Or Fever >100.7 Calamine/Phenol 1 applic 03/28/24 22:00 03/30/24 08:02 Menthol/Lanolin/Calamine/Znox 113 Gm Tube TOPICAL 1 applic BID LUCA Administration Protocol Sodium Chloride 1,000 mls @ 125 mls/hr 03/28/24 10:25 03/30/24 06:09 IV 125 mls/hr .Q8H LUCA Administration Sodium Chloride 250 mls @ 15 mls/hr 03/28/24 16:08 IV .[id number] PRN Additional IVPB Infusion Sodium Chloride 250 mls @ 15 mls/hr 03/28/24 16:08 IV .[id number] PRN Saline Flush Loperamide HCl 2 mg 03/28/24 15:56 03/29/24 03:53 Loperamide 2 Mg Capsule PO 2 mg Q2H PRN PRN Administration DIARRHEA Loratadine 10 mg 03/29/24 10:00 03/30/24 08:01 Loratadine 10 Mg Tablet PO 10 mg DAILY LUCA Administration Melatonin 30 mg 03/28/24 22:00 03/29/24 20:19 Melatonin 10 Mg Tablet PO Not Given HS LUCA Metoprolol Succinate 25 mg 03/28/24 22:00 03/30/24 07:59 Metoprolol(Xl)Succ 25 Mg Tablet PO 25 mg BID LUCA Administration Protocol Morphine Sulfate 2 - 4 mg 03/28/24 15:56 03/29/24 19:18 Morphine 2 Mg/Ml Syringe IV 4 mg Q3H PRN PRN Administration Pain Score 6-10 Nystatin 500,000 unit 03/28/24 18:00 03/30/24 09:52 Nystatin 500,000 Unit/5 Ml Udc PO Not Given 4X/DAY LUCA Ondansetron HCl 4 mg 03/28/24 15:56 03/29/24 19:18 Ondansetron 4 Mg/2 Ml Vial IV 4 mg Q8H PRN PRN Administration NAUSEA/VOMITING Oxycodone HCl 2.5 - 5 mg 03/28/24 15:56 Oxycodone 5 Mg Tablet PO Q4H PRN PRN Pain Score 4-10 Pantoprazole Sodium 40 mg 03/29/24 10:00 03/30/24 08:00 Pantoprazole Sodium 40 Mg Tablet PO 40 mg DAILY LUCA Administration Paroxetine HCl 10 mg 03/29/24 10:00 03/30/24 08:00 Paroxetine 10 Mg Tablet PO 10 mg DAILY LUCA Administration Prochlorperazine Edisylate 5 mg 03/28/24 15:56 03/28/24 19:02 Prochlorperazine 10 Mg/2 Ml Vial IV 5 mg Q4H PRN PRN Administration Breakthrough nausea/vomiting Sodium Chloride 10 - 40 ml 03/28/24 16:08 03/29/24 19:18 0.9% Saline Lock 10 Ml Syringe IV 10 ml UD PRN Administration SALINE FLUSH Thyroid 60 mg 03/29/24 10:00 03/30/24 08:00 Thyroid 60 Mg Tablet PO 60 mg DAILY LUCA Administration [facility] Medical History Post-menopausal Left hip pain Vitamin D deficiency, unspecified Insulin resistance Vitamin B12 deficiency GERD (gastroesophageal reflux disease) Hypothyroidism IBS (irritable bowel syndrome) Hypertension TMJ (dislocation of temporomandibular joint) History of gallstones History of basal cell carcinoma History of fracture of leg Arthritis Seasonal allergies Home Medications ?Medication ?Instructions ?Recorded ?Last Taken ?Type aspirin 81 mg chewable tablet 81 mg PO DAILY@0800 heart health 04/24/16 03/27/24 History biotin 5,000 mcg disintegrating 10,000 mcg PO DAILY supplement, 12/18/20 03/27/24 History tablet hair loss loratadine 10 mg tablet 10 mg PO DAILY allergies 12/18/20 03/27/24 History metoprolol succinate 25 mg 25 mg PO BID #180 tabs 06/29/23 03/30/24 Rx tablet,extended release 24 hr paroxetine HCl 10 mg tablet 10 mg PO DAILY mood #90 tabs 06/29/23 03/30/24 Rx thyroid (pork) 60 mg tablet 60 mg PO DAILY #90 tabs 08/18/23 03/30/24 Rx ([place] Thyroid) triamterene 37.5 1 tab PO DAILY #90 tabs 08/30/23 03/27/24 Rx mg-hydrochlorothiazide 25 mg tablet melatonin 10 mg capsule 30 mg PO HS sleep 12/15/23 03/27/24 History meloxicam 7.5 mg tablet 7.5 mg PO DAILY #90 tabs 12/15/23 03/27/24 Rx omeprazole 40 mg capsule,delayed 40 mg PO DAILY PRN acid reflex 12/15/23 Unknown History release alcohol swabs 1 pad topical QMONTH injec #100 ea 12/22/23 Unknown Rx cyanocobalamin (vitamin B-12) 1,000 mcg IM QMONTH #10 mL 12/22/23 03/22/24 Rx 1,000 mcg/mL injection solution syringe with needle 3 mL 23 gauge #100 ea 12/22/23 Unknown Rx x 1 1/2 (CareTouch Luer Lock Syringe with needle) ciprofloxacin HCl 500 mg tablet 500 mg PO BID 10 days #20 tabs 03/20/24 03/27/24 Rx (Cipro) metronidazole 500 mg tablet 500 mg PO TID 10 days #30 tabs 03/20/24 03/27/24 Rx Allergy/AdvReac Type Severity Reaction Status Date / Time lisinopril Allergy Nausea/Vom/ Verified 03/28/24 16:10 Diarrhea Penicillins Allergy Anaphylaxis Verified 03/28/24 09:57 prednisone Allergy Anaphylaxis Verified 03/28/24 16:10 Sulfa (Sulfonamide Allergy Hives Verified 03/28/24 09:57 Antibiotics) Tetracyclines Allergy Nausea/Vom/ Verified 03/28/24 16:10 Diarrhea Family History Father Alcoholism Cancer Myocardial infarction Hypertension Mother Anemia Grandmother Breast cancer Brother Cancer Seizures Grandfather Myocardial infarction Other Heart disease Hyperlipemia Surgical History History of appendectomy History of hysterectomy History of cholecystectomy History of tonsillectomy Social History Smoking Status: Current every day smoker tobacco type: cigarettes Tobacco: How many years used: 20 alcohol intake: current alcohol intake frequency: a few times a month substance use type: does not use what type of physical activity do you participate in: none Review of Systems (Anesthesia) ROS Narrative System reviewed and no additional complaints, except as documented.
--- NOTE | 2024-03-30 13:58 | PCM.POST.ANE ---
Anesthesia: Postop Eval I Current Vital Signs Temperature: 97.4 F Pulse Rate: 76 Blood Pressure: 93/59 Respiratory Rate: 16 Pulse Ox: 98 Oxygen Delivery Method: Room Air Assessment Airway patent: Yes Spontaneous unlabored respirations: Yes Mental status: Asleep nausea: No Vomiting: No Anesthesia Complication: No Fluid Hydration Crystalloid volume administer (ml): 800 Total IV fluid infused: 800 Progress Note Anesthesia document: Postop Eval 1 completed: Yes
--- NOTE | 2024-03-30 16:22 | PCM.POSTANE2 ---
Anesthesia Postop Eval I Sum Postop Eval Completion status Anesthesia document: Postop Eval 1 completed: Yes Anesthesia Postop Eval I Summary Anesthesia Postop Eval I Summary: Anesthesia Postop Eval I: Assessment Summary Airway patent Yes 03/30/24 14:00 [email or web address] Spontaneous unlabored Yes 03/30/24 14:00 [email or web address] respirations Mental status Asleep 03/30/24 14:00 [email or web address] nausea No 03/30/24 14:00 [email or web address] Vomiting No 03/30/24 14:00 [email or web address] Anesthesia Postop Eval I: Fluid Summary Crystalloid volume administer 800 03/30/24 14:00 [email or web address] (ml) Colloids volume administered ( ml) Blood Product volume administered (ml) Total IV fluid infused 800 03/30/24 14:00 [email or web address] Anesthesia Postop Eval I: Summary Notes Anesthesia Complication No 03/30/24 14:00 [email or web address] Anesthesia Complication Comment: Post-operative progress note Anesthesia: Postop Eval II Evaluation Mental status: Awake and Calm Pain Level: 0 nausea: No Vomiting: No Complications Anesthesia Complication: No
--- NOTE | 2024-03-30 16:25 | OP.CCLET_ITS ---
03/30/2024 Melly Rodriguez [facility] [address] [place] [address] Re : Upper GI endoscopy procedure for Kristal Frank Dear Dr. Rodriguez This procedure was performed on Saturday, March 30, 2024. My impressions and recommendations are as follows: Impressions : - Normal esophagus. - Normal stomach. - Non-bleeding duodenal ulcers with no stigmata of bleeding. Biopsied. Recommendations : - [facility] to [facility] for [facility] care. - Resume regular diet. - Continue present medications. - Await pathology results. My findings are described in the full procedure note, which is enclosed. If I can be of further assistance, please feel free to contact me at . Sincerely, Camilo Gonzalez, 03/30/2024 4:25:13 PM This report has been signed electronically.
--- NOTE | 2024-03-30 16:25 | OP.EGD_ITS ---
Patient Name: Kristal Frank Procedure Date: 03/30/2024 1:13 PM Date of : 1965 Age: 58 Procedure: Upper GI endoscopy Indications: Epigastric abdominal pain Providers: Camilo Gonzalez DO Medicines: Monitored Anesthesia Care Patient Profile: This is a 58 year old female. Refer to note in patient chart for documentation of history and physical. Patient has symptoms of chronic abdominal cramping and acute epigastric abdominal pain. Complications: No immediate complications. Procedure: Pre-Anesthesia Assessment: - Prior to the procedure, a History and Physical was performed, and patient medications and allergies were reviewed. The patient is competent. The risks and benefits of the procedure and the sedation options and risks were discussed with the patient. All questions were answered and informed consent was obtained. Patient identification and proposed procedure were verified by the physician. CV Examination: normal. Prophylactic Antibiotics: The patient does not require prophylactic antibiotics. Prior Anticoagulants: The patient has taken no anticoagulant or antiplatelet agents. ASA Grade Assessment: II - A patient with mild systemic disease. After reviewing the risks and benefits, the patient was deemed in satisfactory condition to undergo the procedure. The anesthesia plan was to use monitored anesthesia care (MAC). Immediately prior to administration of medications, the patient was re-assessed for adequacy to receive sedatives. The heart rate, respiratory rate, oxygen saturations, blood pressure, adequacy of pulmonary ventilation, and response to care were monitored throughout the procedure. The physical status of the patient was re-assessed after the procedure. After obtaining informed consent, the endoscope was passed under direct vision. Throughout the procedure, the patient's blood pressure, pulse, and oxygen saturations were monitored continuously. The pediatric colonoscope was introduced through the mouth, and advanced to the second part of duodenum. The upper GI endoscopy was accomplished without difficulty. The patient tolerated the procedure well. Scope In: 1:24:53 PM Scope Out: 1:27:18 PM Total Procedure Duration Time 0 hours 2 minutes 25 seconds Findings: The examined esophagus was normal. The entire examined stomach was normal. Many non-bleeding superficial duodenal ulcers with no stigmata of bleeding were found in the duodenal bulb, in the first portion of the duodenum and in the second portion of the duodenum. The largest lesion was 2 mm in largest dimension. Biopsies were taken with a cold forceps for histology. Verification of patient identification for the specimen was done. Impression: - Normal esophagus. - Normal stomach. - Non-bleeding duodenal ulcers with no stigmata of bleeding. Biopsied. Recommendation: - Return patient to [facility] for ongoing care. - Resume regular diet. - Continue present medications. - Await pathology results. Procedure Code(s): --- Professional --- 77297, Esophagogastroduodenoscopy, flexible, transoral; with biopsy, single or multiple CPT copyright 2021 [employer]. All rights reserved. The codes documented in this report are preliminary and upon pleating machine operator review may be revised to meet current compliance requirements. Camilo Gonzalez DO 03/30/2024 4:25:13 PM This report has been signed electronically. Number of Addenda: 0 Note Initiated On: 03/30/2024 1:13 PM
--- NOTE | 2024-03-30 16:31 | OP.COLON_ITS ---
Patient Name: Kristal Frank Procedure Date: 03/30/2024 1:27 PM Date of : 1965 Age: 58 Procedure: Colonoscopy Indications: Clinically significant diarrhea of unexplained origin Providers: Camilo Gonzalez DO Medicines: Monitored Anesthesia Care Patient Profile: This is a 58 year old female. Refer to note in patient chart for documentation of history and physical. Patient has symptoms of chronic abdominal cramping and acute epigastric abdominal pain. Last Colonoscopy: date unknown. Unable to locate last colonoscopy report. Complications: No immediate complications. Procedure: Pre-Anesthesia Assessment: - Prior to the procedure, a History and Physical was performed, and patient medications and allergies were reviewed. The patient is competent. The risks and benefits of the procedure and the sedation options and risks were discussed with the patient. All questions were answered and informed consent was obtained. Patient identification and proposed procedure were verified by the physician. CV Examination: normal. Prophylactic Antibiotics: The patient does not require prophylactic antibiotics. Prior Anticoagulants: The patient has taken no anticoagulant or antiplatelet agents. ASA Grade Assessment: II - A patient with mild systemic disease. After reviewing the risks and benefits, the patient was deemed in satisfactory condition to undergo the procedure. The anesthesia plan was to use monitored anesthesia care (MAC). Immediately prior to administration of medications, the patient was re-assessed for adequacy to receive sedatives. The heart rate, respiratory rate, oxygen saturations, blood pressure, adequacy of pulmonary ventilation, and response to care were monitored throughout the procedure. The physical status of the patient was re-assessed after the procedure. After I obtained informed consent, the scope was passed under direct vision. Throughout the procedure, the patient's blood pressure, pulse, and oxygen saturations were monitored continuously. The pediatric colonoscope was introduced through the anus and advanced to the terminal ileum. The colonoscopy was performed without difficulty. The patient tolerated the procedure well. The quality of the bowel preparation was fair. The terminal ileum, ileocecal valve, appendiceal orifice, and rectum were photographed. Scope In: 1:29:55 PM Scope Withdrawal Time 0 hours 8 minutes 50 seconds Scope Out: 1:44:13 PM Total Procedure Duration Time 0 hours 14 minutes 18 seconds Findings: The perianal and digital rectal examinations were normal. Diffuse moderate mucosal changes characterized by friability, loss of vascularity, mucus and target ulcerations were found in the entire colon. Biopsies were taken with a cold forceps for histology. Verification of patient identification for the specimen was done. Estimated blood loss was minimal. Impression: - Preparation of the colon was fair. - Diffuse moderate mucosal changes were found in the entire examined colon secondary to colitis. Biopsied. Recommendation: - [facility] care. - Resume regular diet. - Vancocin (vancomycin) 125 mg PO QID for 2 weeks - Prednisone 40mg daily. - Repeat colonoscopy is recommended for surveillance. The colonoscopy date will be determined after pathology results from today's exam become available for review. - Continue present medications. Procedure Code(s): --- Professional --- 95933, Colonoscopy, flexible; with biopsy, single or multiple CPT copyright 2021 [employer]. All rights reserved. The codes documented in this report are preliminary and upon senior administrator support review may be revised to meet current compliance requirements. Camilo Gonzalez DO 03/30/2024 4:31:15 PM This report has been signed electronically. Number of Addenda: 0 Note Initiated On: 03/30/2024 1:27 PM
--- NOTE | 2024-03-30 16:31 | OP.CCLET_ITS ---
03/30/2024 Melly Rodriguez [facility] [address] [place] [address] Re : Colonoscopy procedure for Kristal Frank Dear Dr. Rodriguez This procedure was performed on Saturday, March 30, 2024. My impressions and recommendations are as follows: Impressions : - Preparation of the colon was fair. - Diffuse moderate mucosal changes were found in the entire examined colon secondary to colitis. Biopsied. Recommendations : - [facility] care. - Resume regular diet. - Vancocin (vancomycin) 125 mg PO QID for 2 weeks - Prednisone 40mg daily. - Repeat colonoscopy is recommended for surveillance. The colonoscopy date will be determined after pathology results from today's exam become available for review. - Continue present medications. My findings are described in the full procedure note, which is enclosed. If I can be of further assistance, please feel free to contact me at . Sincerely, Camilo Gonzalez, 03/30/2024 4:31:15 PM This report has been signed electronically.
--- NOTE | 2024-03-30 17:09 | EX.PCM.PN.GI ---
Subjective Subjective I called patient and gave her the results from her upper and lower endoscopy. She is feeling little bit better and tolerated a diet today. Objective Data Objective Data Vital Signs: Vital Signs Temp Pulse Resp BP Pulse Ox O2 Del Method 97.5 F L 77 16 111/73 99 Room Air 03/30/24 14:19 03/30/24 14:19 03/30/24 14:19 03/30/24 14:19 03/30/24 14:19 03/30/24 14:19 Oxygen Delivery Method Room Air Weight: 152 lb 1.903 oz Body Mass Index (BMI) 26.1 Intake & Output: Intake and Output for Last 24 Hours 03/28/24 03/29/24 03/30/24 23:59 23:59 23:59 Intake Total 1770.83 / 1970.83 5654.17 / 5654.17 1793.75 / 1793.75 Balance 1770.83 / 1970.83 5654.17 / 5654.17 1793.75 / 1793.75 Lab / Micro Data 03/30/24 05:56 03/30/24 05:56 Labs: Laboratory Results - last 24 hr 03/29/24 07:30: ESR 5, C-React Prot Ext Range < 2.90, Folate 12.60 03/30/24 05:56: WBC 5.0, RBC 3.93 L, Hgb 12.6, Hct 38.5, MCV 98.0, MCH 32.1 H, MCHC 32.7, RDW Std Deviation 48.5 H, RDW Coeff of Brenden 13.4, Plt Count 260, MPV 9.7, Immature Gran % (Auto) 0.200, Neut % (Auto) 55.4, Lymph % (Auto) 21.2, [place] % (Auto) 16.8 H, Eos % (Auto) 5.8 H, Baso % (Auto) 0.6, Absolute Neuts (auto) 2.8, Absolute Lymphs (auto) 1.06, Nucleated RBC % 0, Sodium 137, Potassium 3.4 L, Chloride 110 H, Carbon Dioxide 20.0 L, Anion Gap 7, BUN 4 L, Creatinine 0.96, Estim Creat Clear Calc 60.93, Est GFR (MDRD) Af Amer 77, Est GFR (MDRD) Non-Af 63, BUN/Creatinine Ratio 4.2 L, Glucose 100, Calcium 8.7 Micro: Microbiology 03/28/24 22:10 Stool Enteric Bacteriology - Final 03/28/24 10:35 Stool Stool Lactoferrin - Final 03/28/24 10:35 Stool Clostridioides difficile (PCR) - Final 03/28/24 10:35 Stool Stool Occult Blood (NISSA) - Final Occult Blood Positive Physical Exam Narrative General: Alert, Oriented x3, Cooperative, No apparent distress HEENT: Atraumatic, PERRLA, EOMI, Normocephalic Oral: Moist Mucosa Neck: Supple, No JVD Lungs: Clear to auscultation, Normal air movement, No rhonchi, No wheeze, No rales Cardiovascular: Regular rate, Regular Rhythm, Normal S1, Normal S2, No murmurs Abdomen: Soft, mild TTP right side, Non-Distended, No Hepato-splenomegaly Extremities: No edema, Capillary Refill Less than 3 Seconds Skin: No rashes, No breakdown Musculoskeletal: No Tenderness to Palpation of Joints or Extremities Neurological: No focal neurological deficits, Motor Exam 5/5 strength throughout, Sensory exam intact to light touch and pain Psych/Mental Status: Normal Affect, Appropriate Assessment & Plan Assessment/Plan (1) Colitis: PLAN: Her upper endoscopy did show some ulcers in proximal small bowel possibly secondary to inflammatory bowel disease. Biopsies are pending. Inflammatory bowel disease biochemical workup is also pending. She underwent colonoscopy 2/2 to terminal ileum and she also had some ulcers in the terminal ileum but she had a pancolitis that resembles pseudomembranous colitis. Biopsies are pending from that study also. So I will put her on vancomycin and we will put her on budesonide. She does have a bad reaction to prednisone. She only took it 1 time in developed what was thought to be an anaphylactic reaction from the prednisone. I told her I would give her budesonide while she is in the hospital to see if she tolerates the medicine because it is looking like she has inflammatory bowel disease. Charges/Coding Visit Charges Inpatient E&M: 85609 Subs Hosp L3
[2024-03-30] MEDS: Vancomycin 125 MG/5 ML Susp PO.SYRINGE PO (17:22)
[2024-03-30] MEDS: Budesonide 3 MG CAPSULE.EC 9 MG PO (17:22)
[2024-03-30] MEDS: oxyCODONE 5 MG Tablet PO (19:51)
[2024-03-30] MEDS: MELATONIN 10 MG TABLET 30 MG PO (19:51)
[2024-03-30] MEDS: 0.9% Saline Lock 10 ML Syringe IV (20:50)
[2024-03-30] MEDS: DiphenhydrAMINE 50 MG/ML Syringe 25 MG IV (20:50)
[2024-03-31] VITALS (7 sets, daily range): BP systolic 103–126; BP diastolic 65–80; PULSE 72–90; RESP 16–20; TEMP 36.7–37.2; O2SAT 93–99
[2024-03-31] MEDS: Vancomycin 125 MG/5 ML Susp PO.SYRINGE PO ×4 (00:07→17:51)
[2024-03-31] MEDS: Acetaminophen 325 MG Tablet 650 MG PO ×2 (05:00→14:52)
[2024-03-31] MEDS: Cholestyramine/Sucrose 4 GM/PACKET PO ×2 (06:21→16:09)
[2024-03-31 07:18] LABS: Absolute Lymphocyte Count 0.87 X10^3/uL (0.83-4.51); Absolute Neutrophil Count 4.4 X10^3/uL (2.0-7.7); Basophil# 0.05 X10^3/uL; Basophil% 0.7 % (0-1); Eosinophil# 0.12 X10^3/uL; Eosinophils% 1.8 % (0-5); Hematocrit 35.7 % (37-47); Hemoglobin 11.9 g/dL (12.0-15.0); Lymphocyte # 0.87 X10^3/ul (0.83-4.51); Lymphocyte % 12.9 % (19-41); Mean Corp Hgb Conc 33.3 g/dL (32-36); Mean Corpuscular Hgb 32.2 pg (27.0-32.0); Mean Corpuscular Volume 96.7 fL (81-99); Mean Platelet Vol. 9.4 fl (6.2-12.0); Monocyte# 1.25 X10^3/uL; Monocyte% 18.6 % (0-10); NRBC Flagged by Analyzer 0 % (0-5); Neutrophil # 4.39 X10^3/uL (2.7-7.7); Neutrophil % 65.4 % (47-70); POSITIVE MORPHOLOGY YES; Platelet Count 245 K/mm3 (150-450); RBC Distribution Width CV 13.2 % (11.6-14.6); RBC Distribution Width SD 46.9 fl (35.1-43.9); Red Blood Count 3.69 M/mm3 (4.2-5.4); White Blood Count 6.7 K/mm3 (4.4-11.0)
[2024-03-31 07:21] LABS: Differential Indicated SCAN CRITERIA MET
[2024-03-31 07:45] LABS: Anion Gap 6 (5-15); BUN 6 mg/dL (7-18); BUN/Creat Ratio 6.2 RATIO (10-20); Calcium,Total 8.4 mg/dL (8.5-10.1); Chloride 108 mmol/L (98-107); Creatinine, Serum 0.96 mg/dL (0.55-1.02); EST Glomerular Filtration Rate 63 mL/min (>60); Est Glom Filt Rate - Afr Amer 76 mL/min (>60); Estimated Creatinine Clearance 60.93 ml/min; Glucose 149 mg/dL (74-106); Potassium 3.4 mmol/L (3.5-5.1); Sodium Level 136 mmol/L (136-145)
[2024-03-31] MEDS: Thyroid 60 MG Tablet PO (07:56)
[2024-03-31 08:09] LABS: Differential Comment SCANNED
[2024-03-31 08:10] LABS: Dohle Bodies 1+; Red Cell Morphology NORM C+C NORMAL (NORM C&C); Toxic Granulation 1+; Vacuolated Cells 1+
[2024-03-31] MEDS: PARoxetine 10 MG Tablet PO (09:21)
[2024-03-31] MEDS: Pantoprazole Sodium 40 MG Tablet PO (09:21)
[2024-03-31] MEDS: Loratadine 10 MG Tablet PO (09:21)
[2024-03-31] MEDS: Budesonide 3 MG CAPSULE.EC 9 MG PO (09:21)
[2024-03-31] MEDS: Menthol/Lanolin/Calamine/Znox 113 GM Tube 1 APPLIC TOPICAL (09:22)
[2024-03-31] MEDS: DiphenhydrAMINE 50 MG/ML Syringe 25 MG IV ×2 (11:18→22:16)
[2024-03-31] MEDS: 0.9% Saline Lock 10 ML Syringe IV ×2 (11:19→22:16)
--- NOTE | 2024-03-31 14:01 | PN.HOSP_ITS ---
Subjective Subjective Doing well, no issues overnight. Did have some abdominal pain with breakfast this morning as well as increased itchiness after her dose of budesonide Objective Data Objective Data Vital Signs: Vital Signs Temp Pulse Resp BP Pulse Ox O2 Del Method 98.1 F 72 18 103/66 93 Room Air 03/31/24 09:16 03/31/24 09:20 03/31/24 09:16 03/31/24 09:20 03/31/24 09:16 03/31/24 09:16 Oxygen Delivery Method Room Air Weight: 152 lb 1.903 oz Body Mass Index (BMI) 26.1 Intake & Output: Intake and Output for Last 24 Hours 03/30/24 03/31/24 04/01/24 03:59 03:59 03:59 Intake Total 4579.17 / 4579.17 3993.75 / 3993.75 1220 / 1220 Balance 4579.17 / 4579.17 3993.75 / 3993.75 1220 / 1220 Lab / Micro Data 03/31/24 07:04 03/31/24 07:04 Labs: Laboratory Results - last 24 hr 03/31/24 07:04: WBC 6.7, RBC 3.69 L, Hgb 11.9 L, Hct 35.7 L, MCV 96.7, MCH 32.2 H, MCHC 33.3, RDW Std Deviation 46.9 H, RDW Coeff of Brenden 13.2, Plt Count 245, MPV 9.4, Immature Gran % (Auto) 0.600, Neut % (Auto) 65.4, Lymph % (Auto) 12.9 L , [place] % (Auto) 18.6 H, Eos % (Auto) 1.8, Baso % (Auto) 0.7, Absolute Neuts (auto) 4.4, Absolute Lymphs (auto) 0.87, Nucleated RBC % 0, Differential Comment SCANNED, Toxic Granulation 1+, Toxic Vacuolation 1+, Dohle Bodies 1+, RBC Morphology NORM C+C, Sodium 136, Potassium 3.4 L, Chloride 108 H, Carbon Dioxide 22.0, Anion Gap 6, BUN 6 L, Creatinine 0.96, Estim Creat Clear Calc 60.93, Est GFR (MDRD) Af Amer 76, Est GFR (MDRD) Non-Af 63, BUN/Creatinine Ratio 6.2 L, G lucose 149 H, Calcium 8.4 L Micro: Microbiology 03/28/24 22:10 Stool Enteric Bacteriology - Final 03/28/24 10:35 Stool Stool Lactoferrin - Final 03/28/24 10:35 Stool Clostridioides difficile (PCR) - Final 03/28/24 10:35 Stool Stool Occult Blood (NISSA) - Final Occult Blood Positive Physical Exam Narrative General: Alert, Oriented x3, Cooperative, No apparent distress HEENT: Atraumatic, PERRLA, EOMI, Normocephalic Oral: Moist Mucosa Neck: Supple, No JVD Lungs: Diminished, Normal air movement, No rhonchi, No wheeze, No rales Cardiovascular: Regular rate, Regular Rhythm, Normal S1, Normal S2, No murmurs Abdomen: Soft, minimal TTP right side, Non-Distended, No Hepato-splenomegaly Extremities: No edema, Capillary Refill Less than 3 Seconds Skin: No rashes, No breakdown Musculoskeletal: No Tenderness to Palpation of Joints or Extremities Neurological: No focal neurological deficits, Motor Exam 5/5 strength throughout, Sensory exam intact to light touch and pain Psych/Mental Status: Normal Affect, Appropriate Assessment & Plan Assessment/Plan (1) Colitis: PLAN: Plan 1. Right hemicolitis/GERD ? She has been on antibiotics multiple times without improvement, stool cultures are negative and C. difficile is negative ? Will discontinue steroids given her reaction today with itchiness and her history of anaphylaxis to prednisone ? Will start her on mesalamine 1.2 g p.o. twice daily at the direction of GI ? She did have a colonoscopy in 2019 which was unremarkable, colonoscopy was very consistent with pseudomembranous colitis despite having negative C. difficile. Will continue with p.o. vancomycin for 14 days given the appearance of her colonoscopy, there is significant concern for inflammatory bowel disease ? Continue with antiemetics, discontinue IV fluids ? She is Hemoccult positive however she is not anemic ? Continue with nystatin for thrush secondary to her multiple courses of antibiotics ? Continue PPI 2. Essential HTN ? Blood pressure stable ? Can resume her home medications ? Monitor make adjustments as necessary 3. Hypothyroidism ? Stable ? Continue with her home medications 4. Anxiety/depression ? Stable ? Continue with her home medications Moderate protein calorie malnutrition * Secondary to GI losses and lack of proper nutritional intake given the ongoing diarrhea. * When appropriate, add supplements. Low utility for supplements at this time given her ongoing diarrhea. DVT: SCDs Charges/Coding Visit Charges Inpatient E&M: 18433 Subs Hosp L2
[2024-03-31] MEDS: Mesalamine 1.2 GM Tablet PO (20:57)
[2024-03-31] MEDS: MELATONIN 10 MG TABLET 30 MG PO (22:16)
[2024-04-01] MEDS: Vancomycin 125 MG/5 ML Susp PO.SYRINGE PO ×3 (01:18→11:19)
[2024-04-01 03:00] VITALS: BP 148/85; PULSE 63; RESP 18; TEMP 36.6; O2SAT 98
[2024-04-01] MEDS: Pantoprazole Sodium 40 MG Tablet PO (04:43)
[2024-04-01] MEDS: Hydrocortisone 2.5% Ointment 20 gm tube 1 APPLIC TOPICAL (05:58)
[2024-04-01] MEDS: Thyroid 60 MG Tablet PO (07:34)
[2024-04-01 09:11] VITALS: BP 120/72; PULSE 65; RESP 18; TEMP 37.2; O2SAT 100
[2024-04-01 09:15] VITALS: BP 120/72; PULSE 65
[2024-04-01] MEDS: Metoprolol(XL)Succ 25 MG Tablet PO (09:15)
[2024-04-01] MEDS: PARoxetine 10 MG Tablet PO (09:15)
[2024-04-01] MEDS: Loratadine 10 MG Tablet PO (09:16)
[2024-04-01] MEDS: Mesalamine 1.2 GM Tablet PO (09:16)
--- NOTE | 2024-04-01 09:47 | PCM.DC ---
Discharge Instructions Diet Discharge Diet: Low fat / Low cholesterol Activity Discharge Activity: Return to Normal Activity Dressing / Incision Call your doctor if you observe: Fever of 101 or Higher, Shortness of breath, Dizziness, Fainting spells, Swelling in the ankles, Chest pain and Increased palpitations (irregular heartbeat) Follow Up Care Test Results: Test results from this visit will be discussed in further detail at your follow-up appointment, if applicable. Discharge Plan Admission Admit Date/Time: 03/28/24 15:39 Attending Provider: Eduard Ellington Primary Care Provider: Melly Rodriguez Consulting Providers: Hermilo Tucker Discharge Orders/Prescriptions Prescriptions: New cholestyramine (with sugar) 4 gram Powder In Packet 1 ea PO BIDAC 30 Days Qty: 60 0RF mesalamine 1.2 gram Tablet,Delayed Release (Dr/Ec) 1.2 g PO BID 30 Days Qty: 60 0RF vancomycin 125 mg capsule 125 mg PO Q6H 12 Days Qty: 48 0RF Continued biotin 5,000 mcg tablet,disintegrating 10,000 mcg PO DAILY loratadine 10 mg tablet 10 mg PO DAILY melatonin 10 mg capsule 30 mg PO HS omeprazole 40 mg capsule,delayed release(DR/EC) 40 mg PO DAILY PRN (Reason: acid reflex) meloxicam 7.5 mg tablet 7.5 mg PO DAILY Qty: 90 1RF aspirin 81 MG tablet,chewable 81 mg PO DAILY@0800 paroxetine HCl 10 mg tablet 10 mg PO DAILY Qty: 90 3RF metoprolol succinate 25 mg tablet extended release 24 hr 25 mg PO BID Qty: 180 3RF thyroid (pork) [[place] Thyroid] 60 mg tablet 60 mg PO DAILY Qty: 90 3RF triamterene-hydrochlorothiazid 37.5-25 mg tablet 1 tab PO DAILY Qty: 90 3RF (DME) syringe with needle [CareTouch Luer Lock Syr-needle] 3 mL 23 gauge x 1 1/2 syringe See Rx Instructions .Route Qty: 100 0RF Rx Instructions: As directed cyanocobalamin (vitamin B-12) 1,000 mcg/mL solution 1,000 mcg IM QMONTH Qty: 10 0RF alcohol swabs Pads, Medicated 1 pad topical QMONTH Qty: 100 0RF metronidazole 500 mg tablet 500 mg PO TID 10 Days Qty: 30 0RF Discontinued ciprofloxacin HCl [Cipro] 500 mg tablet 500 mg PO BID 10 Days Qty: 20 0RF Referrals / Follow Up: Melly Rodriguez MD [Primary Care Provider] - Within 1 Week Camilo Gonzalez DO [Med Staff - Active Staff] - Within 1 Month Disposition Disposition (needs filled in before D/C Order can be placed): Home, Self Care
[2024-04-01 12:42] VITALS: BP 134/83; PULSE 68; RESP 18; TEMP 36.7; O2SAT 100
--- NOTE | 2024-04-01 13:37 | PCM.DC.SUM ---
Providers Date of Admission: 03/28/24 Primary Care Physician: Dr. Melly Rodriguez MD Consultations 03/28/24 15:56 Consult: Gastroenterology Routine Consulting Provider: Charanjit Gastroenterology Reason for Consult: colitis EMERGENT Consult: No MD Notified: Yes Date Notified: 03/28/24 Time Notified: 15:42 Method of Notification: Text Reason For Visit: COLITIS Diagnosis Discharge Diagnosis (1) Colitis: Status: Acute Code(s): K52.9 - Noninfective gastroenteritis and colitis, unspecified Medications at Discharge Home Medications aspirin 81 mg chewable tablet 81 mg PO DAILY@0800 heart health 04/24/16 biotin 5,000 mcg disintegrating tablet 10,000 mcg PO DAILY supplement, hair loss 12/18/20 loratadine 10 mg tablet 10 mg PO DAILY allergies 12/18/20 metoprolol succinate 25 mg tablet,extended release 24 hr 25 mg PO BID #180 tabs 06/29/23 paroxetine HCl 10 mg tablet 10 mg PO DAILY mood #90 tabs 06/29/23 thyroid (pork) 60 mg tablet ([place] Thyroid) 60 mg PO DAILY #90 tabs 08/18/23 triamterene 37.5 mg-hydrochlorothiazide 25 mg tablet 1 tab PO DAILY #90 tabs 08/30/23 melatonin 10 mg capsule 30 mg PO HS sleep 12/15/23 meloxicam 7.5 mg tablet 7.5 mg PO DAILY #90 tabs 12/15/23 omeprazole 40 mg capsule,delayed release 40 mg PO DAILY PRN acid reflex 12/15/23 alcohol swabs 1 pad topical QMONTH injec #100 ea 12/22/23 cyanocobalamin (vitamin B-12) 1,000 mcg/mL injection solution 1,000 mcg IM QMONTH #10 mL 12/22/23 syringe with needle 3 mL 23 gauge x 1 1/2 (CareTouch Luer Lock Syringe with needle) #100 ea 12/22/23 cholestyramine (with sugar) 4 gram powder for susp in a packet 1 ea PO BIDAC 30 days #60 ea 04/01/24 mesalamine 1.2 gram tablet,delayed release 1.2 g PO BID 30 days #60 tabs 04/01/24 vancomycin 125 mg capsule 125 mg PO Q6H 12 days #48 caps 04/01/24 Hospital Course Operations None Procedures Colonoscopy and EGD Summary of Care Provided Minutes Spent on Discharge: 34 Hospital Course: Per HPI: GT JOHNSON, is a 58 F who presents with diarrhea. Symptoms began on January 19 when she had a rash down to [facility] because it was concerning that her brother may (he actually survived and is doing well on) but she did bring her mother home with her. She has been having diarrhea ever since. Has seen Dr. Perea in the office and had a CAT scan that showed colitis. She had been on antibiotics and was taking antibiotics with ciprofloxacin and metronidazole and has had no improvement despite antibiotics. She states that she has some coffee-ground looking material as well as some bilious material within her liquid stool. Has never had this problem before. I spoke with Dr. Perea who said that he is planning on referring the patient to Dr. Gonzalez for outpatient colonoscopy. Patient presented here and had a repeat CAT scan that showed progression of the colitis as compared to prior study. Persistent fluid collections adjacent to the cecum, diffuse bladder wall thickening. Stable heterogenous appearance of lateral midportion of the right lobe of the liver. In emergency room, patient received fluids as well as ciprofloxacin and metronidazole. Hospital Course: 1. Right hemicolitis/GERD?58-year-old female presented to the hospital with recurrent right-sided abdominal pain and diarrhea. She had multiple rounds of antibiotics and stool studies that were negative. The antibiotics did not improve her symptoms so these were discontinued. Gastroenterology was consulted and performed an EGD and a colonoscopy, the EGD demonstrated gastric ulcers and she does take a PPI but she takes it inconsistently and only when she feels that she needs it. Colonoscopy on the other hand did show significant signs of colitis initially felt to be pseudomembranous colitis however the C. difficile testing again on this admission was negative. Biopsies were taken and pending. She does have a history of anaphylaxis to prednisone however budesonide was attempted and she did not tolerate with hives and itching so she was switched to mesalamine 1.2 g p.o. twice daily. I discussed the case with gastroenterology and they recommended discharge on mesalamine 1.2 g p.o. twice daily as well as a PPI daily and vancomycin 125 mg p.o. every 6 to complete 14 days. Today she was tolerating a diet better and had minimal abdominal pain. She says that her bowel movements have also firmed up so I discussed with her the plan for possible discharge today she expressed understanding of the risk benefits of going home and would like to go home today. She will need to follow-up with her roller hand in about a month and with her PCP in 3 to 5 days. 2. Essential hypertension, hypothyroidism, anxiety, depression are chronic medical conditions which complicate her care. Her home medications were continued where appropriate. Given the course of diarrhea and abdominal pain over the last couple weeks, she has had a moderate protein calorie malnutrition with a 20 pound weight loss. I do anticipate this getting better as her diarrhea improves. Physical Exam Narrative General: Alert, Oriented x3, Cooperative, No apparent distress HEENT: Atraumatic, PERRLA, EOMI, Normocephalic Oral: Moist Mucosa Neck: Supple, No JVD Lungs: Diminished, Normal air movement, No rhonchi, No wheeze, No rales Cardiovascular: Regular rate, Regular Rhythm, Normal S1, Normal S2, No murmurs Abdomen: Soft, minimal TTP right side, Non-Distended, No Hepato-splenomegaly Extremities: No edema, Capillary Refill Less than 3 Seconds Skin: No rashes, No breakdown Musculoskeletal: No Tenderness to Palpation of Joints or Extremities Neurological: No focal neurological deficits, Motor Exam 5/5 strength throughout, Sensory exam intact to light touch and pain Psych/Mental Status: Normal Affect, Appropriate Weight / BMI Weight Weight: 152 lb 1.903 oz Body Mass Index (BMI) 26.1 ABG / Lab / Microbiology Data 03/31/24 07:04 03/31/24 07:04 Microbiology: Microbiology 03/28/24 22:10 Stool Enteric Bacteriology - Final 03/28/24 10:35 Stool Stool Lactoferrin - Final 03/28/24 10:35 Stool Clostridioides difficile (PCR) - Final 03/28/24 10:35 Stool Stool Occult Blood (NISSA) - Final Occult Blood Positive D/C Instructions Discharge Diet: Low fat / Low cholesterol Call your doctor if you observe: Fever of 101 or Higher, Shortness of breath, Dizziness, Fainting spells, Swelling in the ankles, Chest pain and Increased palpitations (irregular heartbeat) Meaningful Use Info Meaningful Use Meaningful Use Diagnoses (Choose all that apply): None applicable Ischemic Stroke Statin Dosing Therapy Reference: STATIN DOSE THERAPY REFERENCE: * Patients > 75 years receive moderate or high dose statin therapy. * Patients 75 years or YOUNGER should receive HIGH intensity statin dose unless contraindicated. You will be required to document reason for non-treatment if statin daily dose does not meet guidelines. HIGH DOSE STATIN THERAPY DAILY Atorvastatin > than or = to 40 mg Rosuvastatin > than or = to 20 mg Amlodipine + Atorvastatin > than or = to 2.5/40 mg Ezetimibe + Simvastatin 10/80 mg Simvastatin 80mg Discharge Plan Admission Admit Date/Time: 03/28/24 15:39 Attending Provider: Eduard Ellington Primary Care Provider: Melly Rodriguez Consulting Providers: Hermilo Tucker Discharge Orders/Prescriptions Prescriptions: New cholestyramine (with sugar) 4 gram Powder In Packet 1 ea PO BIDAC 30 Days Qty: 60 0RF mesalamine 1.2 gram Tablet,Delayed Release (Dr/Ec) 1.2 g PO BID 30 Days Qty: 60 0RF vancomycin 125 mg capsule 125 mg PO Q6H 12 Days Qty: 48 0RF Continued biotin 5,000 mcg tablet,disintegrating 10,000 mcg PO DAILY loratadine 10 mg tablet 10 mg PO DAILY melatonin 10 mg capsule 30 mg PO HS omeprazole 40 mg capsule,delayed release(DR/EC) 40 mg PO DAILY PRN (Reason: acid reflex) meloxicam 7.5 mg tablet 7.5 mg PO DAILY Qty: 90 1RF aspirin 81 MG tablet,chewable 81 mg PO DAILY@0800 paroxetine HCl 10 mg tablet 10 mg PO DAILY Qty: 90 3RF metoprolol succinate 25 mg tablet extended release 24 hr 25 mg PO BID Qty: 180 3RF thyroid (pork) [[place] Thyroid] 60 mg tablet 60 mg PO DAILY Qty: 90 3RF triamterene-hydrochlorothiazid 37.5-25 mg tablet 1 tab PO DAILY Qty: 90 3RF (DME) syringe with needle [CareTouch Luer Lock Syr-needle] 3 mL 23 gauge x 1 1/2 syringe See Rx Instructions .Route Qty: 100 0RF Rx Instructions: As directed cyanocobalamin (vitamin B-12) 1,000 mcg/mL solution 1,000 mcg IM QMONTH Qty: 10 0RF alcohol swabs Pads, Medicated 1 pad topical QMONTH Qty: 100 0RF Discontinued ciprofloxacin HCl [Cipro] 500 mg tablet 500 mg PO BID 10 Days Qty: 20 0RF metronidazole 500 mg tablet 500 mg PO TID 10 Days Qty: 30 0RF Referrals / Follow Up: Melly Rodriguez MD [Primary Care Provider] - Within 1 Week Camilo Gonzalez DO [Med Staff - Active Staff] - Within 1 Month Disposition Disposition (needs filled in before D/C Order can be placed): Home, Self Care Charges/Coding Visit Charges Inpatient E&M: 11005 Disch Hosp >30min
[2024-04-02 15:08] LABS: Anti-Centromere B Ab <0.2 AI (0.0-0.9); Anti-Chromatin <0.2 AI (0.0-0.9); Anti-Jo <0.2 AI (0.0-0.9); Anti-Scleroderma-70 AB <0.2 AI (0.0-0.9); Anti-dsDNA Ab 1 IU/mL (0-9); RNP Ab <0.2 AI (0.0-0.9); SJOGREN'S Anti-SS-A test < 0.2 AI (0.0-0.9); SJOGREN'S Anti-SS-B test < 0.2 AI (0.0-0.9); Smith Ab <0.2 AI (0.0-0.9)
[2024-04-03 14:10] LABS: ACCA 7 units (0-90); ALCA 50 units (0-60); AMCA 361 units (0-100); Chromogranin A 51.5 ng/mL (0.0-101.8); gASCA 18 units (0-50)
[2024-04-05 16:10] LABS: Albumin 3.2 g/dL (2.9-4.4); Alpha-1-Globulins 0.2 g/dL (0.0-0.4); Alpha-2-Globulins 0.6 g/dL (0.4-1.0); Anti-Parietal Cell AB, QN 2.2 Units (0.0-20.0); Cytoplasmic Ab (C-ANCA) <1:20 titer (Neg:<1:20); Deamidated Gliadin IgA 3 units (0-19); Deamidated Gliadin IgG 3 units (0-19); Endomysial Antibody IgA Negative (Negative); Gamma Globulin 0.7 g/dL (0.4-1.8); Gastrin, Serum 19 pg/mL (0-115); Immunoglobulin A 78 mg/dL (87-352); Immunoglobulin G 699 mg/dL (586-1602); Immunoglobulin M 143 mg/dL (26-217); PROEL- TOTAL PROTEIN 5.3 g/dL (6.0-8.5); Perinuclear Ab (P-ANCA) <1:20 titer (Neg:<1:20); t-Transglutaminase IgA <2 U/mL (0-3)
== END 2024-04-01 12:56 | disposition home or self-care (01) | DRG 249 ==
LOC: ED 10:39 → MS3 15:53
PROVIDERS: Internal Medicine Gastroenterology; Emergency Provider Emergency Medicine; PCP Internal Medicine; Visit Provider Family Medicine
PROC: 0DJD8ZZ Inspection of Lower Intestinal Tract, Via Natural or Artificial Opening Endoscopic (ICD-10-PCS; CPT 45378; principal; 2024-03-30 12:25)
DX: K52.9 Noninfective gastroenteritis and colitis, unspecified (principal); E44.0 Moderate protein-calorie malnutrition; K26.9 Duodenal ulcer, unspecified as acute or chronic, without hemorrhage or perforation; E03.9 Hypothyroidism, unspecified; F17.210 Nicotine dependence, cigarettes, uncomplicated; B37.9 Candidiasis, unspecified; F32.A Depression, unspecified; I10 Essential (primary) hypertension; K21.9 Gastro-esophageal reflux disease without esophagitis; F41.9 Anxiety disorder, unspecified; Z79.82 Long term (current) use of aspirin; Z68.26 Body mass index [BMI] 26.0-26.9, adult
CPT/HCPCS: 36415; 74177; 80048; 80053; 80076; 82274; 82746; 82784; 82941; 83516; 83630; 83690; 84165; 84443; 85025; 85652; 86036; 86140; 86225; 86235; 86255; 86256; 86316; 86334; 86340; 86671; 87177; 87209; 87493; 87506; 88305; 88312; 93005; 97802; 99284; J7030; Q9967; A4216; J0744; J2405

== ENCOUNTER → 2024-04-12 | Outpatient (CLI) | payer MEDICAID, SELFPAY ==
[2024-04-12 09:44] LABS: CRP < 2.90 mg/L (0.0-3.0)
[2024-04-12 09:53] LABS: Erythrocyte Sedimentation Rate 26 mm/hr (0-30)
[2024-04-14 21:07] LABS: HEPATITIS B SURFACE AG Negative (Negative); Hep C Antibodies Non Reactive (Non Reactive); Hepatitis A IgM Antibody Negative (Negative); Hepatitis B Core AB IgM Negative (Negative); QNTFERON TB Mitogen Value > 10.00 IU/mL (.); QNTFERON TB Nil Value 0 IU/mL (.); QNTFERON TB1+ Ag Value 0 IU/mL (.); QNTFERON TB2+ Ag Value 0 IU/mL (.); QNTIFERON TB Positive Criteria Negative (Negative); Toxoplasma Gondii IgG 29.3 IU/mL (0.0-7.1); Toxoplasma Gondii IgM < 3.0 AU/mL (0.0-7.9)
== END | disposition home or self-care (01) ==
LOC: LAB 08:11
PROVIDERS: PCP Internal Medicine; Referring Provider Internal Medicine Gastroenterology; Visit Provider Internal Medicine Gastroenterology
DX: K52.9 Noninfective gastroenteritis and colitis, unspecified (principal)
CPT/HCPCS: 36415; 80074; 85652; 86140; 86480; 86777; 86778

== ENCOUNTER → 2024-05-04 | Outpatient (CLI) | payer MEDICAID, SELFPAY ==
--- NOTE | 2024-05-04 08:33 | RAD_ITS ---
STUDY: X-RAY BONE SURVEY COMPLETE REASON FOR EXAM: Female, 58 years old. MONOCLONAL GAMMOPATHY TECHNIQUE: One frontal view of the chest was obtained. 2 views of the cervical spine were obtained. 3 views of the thoracic spine were obtained. 2 views of the lumbar spine were obtained. 2 views of the skull were obtained. COMPARISON: Chest x-ray dated 12/15/2023. FINDINGS: CHEST: The lungs are clear and expanded. There is no demonstrated pleural abnormality. Normal size heart. Normal mediastinum and giuliana. Normal visualized pulmonary arteries. Normal visualized aortic arch and descending thoracic aorta. Normal visualized thoracic spine. Normal visualized ribs, clavicles, and shoulders. There is no demonstrated abnormality of the visualized soft tissue structures of the upper abdomen. CERVICAL SPINE: Normal anterior atlantoaxial articulation. Normal odontoid process. There is mild straightening of the normal cervical lordosis. There is endplate spondylosis and disc space narrowing at C5-6. There is osseous foraminal stenosis at C5-6. The soft tissue structures are unremarkable. THORACIC SPINE: Normal kyphosis of the thoracic spine. There is no substantial scoliosis. Normal thoracic vertebrae and endplates. Normal disc space heights. The soft tissue structures are unremarkable. LUMBAR SPINE: Normal lumbar lordosis. There is no substantial scoliosis. There is a normal alignment of the vertebrae. Normal vertebral bodies and endplates. Normal disc space heights. The soft tissue structures are unremarkable. SKULL: There is no demonstrated soft tissue swelling. Normal osseous calvarium. Normal visualized facial bones. Normal visualized paranasal sinuses. RAD/Bone Survey Comp(Axial&Append) IMPRESSION: Endplate spondylosis and disc space narrowing at C5-6. Osseous foraminal stenosis at C5-6. Electronically Signed: Dustin Toth MD at 15:27 EDT ,
== END | disposition home or self-care (01) ==
LOC: RAD 08:33
PROVIDERS: PCP Internal Medicine; Referring Provider Internal Medicine Medical Oncology; Visit Provider Internal Medicine Medical Oncology
DX: D47.2 Monoclonal gammopathy (principal)
CPT/HCPCS: 77075

== ENCOUNTER → 2024-07-30 | Outpatient (CLI) | payer MEDICAID, SELFPAY ==
--- NOTE | 2024-07-30 09:08 | US_ITS ---
STUDY: ABDOMINAL ULTRASOUND - RIGHT UPPER QUADRANT; ELASTOGRAPHY REASON FOR VISIT: Female, 59 years old. Elevated liver function tests. TECHNIQUE: Ultrasound evaluation of the right upper quadrant was performed with real-time and static quesada-scale imaging. Point quantification shear wave elastography was performed ([facility]). TECHNICAL QUALITY: Adequate. COMPARISON: Comparison is made with prior CT scan of the pelvis dated March 28, 2024. FINDINGS: Liver: The liver measures 16.2 cm. There is increased echogenicity consistent with fatty infiltration. The bile ducts are within normal limits. There is hepatic color flow. The direction of portal flow is hepatopetal. There is a heterogeneous density in the dome of the right lobe of liver measuring 5.9 cm x 4.2 cm x 4.7 cm. This corresponds to the CT findings. This may represent either atypical hemangioma or possible regenerating nodule. MRI correlation recommended. Median liver stiffness measured 6.9 kPa. Gallbladder: The patient is status post cholecystectomy. Common Bile Duct (C.B.D.): The common bile duct measures 2.7 mm. Pancreas: There is normal echogenicity of the visualized pancreas. There is no demonstrated pancreatic mass or cyst. Right Kidney: Normal size of the right kidney. The right kidney measures 9.9 signed by 4.9 cm x 4.2 cm. Normal renal cortex. The right cortex measures 1.1 cm. There is no demonstrated renal mass or cyst. There is no right hydronephrosis. US/ABD Limited w/ Elastography IMPRESSION: 1. Liver stiffness measures 6.9 kPa compatible with F2-F3 (Mild to moderate liver fibrosis) Metavir score. 2. Heterogeneous nodular density in the dome of the right lobe of the liver as seen on prior CT scan. Correlation with MRI recommended. 3. Patient status post cholecystectomy. Electronically Signed: Jef Solis MD at 13:53 EST ,
[2024-07-30 10:12] LABS: Absolute Lymphocyte Count 2.24 X10^3/uL (0.83-4.51); Absolute Neutrophil Count 3.7 X10^3/uL (2.0-7.7); Basophil# 0.06 X10^3/uL; Basophil% 0.9 % (0-1); Eosinophil# 0.22 X10^3/uL; Eosinophils% 3.2 % (0-5); Hemoglobin 14.3 g/dL (12.0-15.0); Lymphocyte # 2.24 X10^3/ul (0.83-4.51); Lymphocyte % 32.4 % (19-41); Mean Corp Hgb Conc 33.3 g/dL (32-36); Mean Corpuscular Hgb 33.1 pg (27.0-32.0); Mean Corpuscular Volume 99.5 fL (81-99); Mean Platelet Vol. 8.9 fl (6.2-12.0); Monocyte# 0.68 X10^3/uL; Monocyte% 9.8 % (0-10); NRBC Flagged by Analyzer 0 % (0-5); Neutrophil # 3.68 X10^3/uL (2.7-7.7); Neutrophil % 53.3 % (47-70); Platelet Count 314 K/mm3 (150-450); RBC Distribution Width CV 13.1 % (11.6-14.6); RBC Distribution Width SD 48.3 fl (35.1-43.9); Red Blood Count 4.32 M/mm3 (4.2-5.4); White Blood Count 6.9 K/mm3 (4.4-11.0)
[2024-07-30 10:33] LABS: Erythrocyte Sedimentation Rate 4 mm/hr (0-30)
[2024-07-30 10:37] LABS: LDH 210 U/L (84-246)
[2024-07-30 10:44] LABS: ALB/GLOB Ratio 1.2 RATIO (0.9-2.4); AST(SGOT) 27 U/L (15-37); Alanine Aminotransfer ALT/SGPT 29 U/L (13-56); Albumin, Serum 3.8 g/dL (3.2-5.0); Alkaline Phosphatase 91 U/L (45-117); Anion Gap 7 (5-15); BUN 17 mg/dL (7-18); BUN/Creat Ratio 15.2 RATIO (10-20); CRP < 2.90 mg/L (0.0-3.0); Calcium,Total 9.8 mg/dL (8.5-10.1); Chloride 100 mmol/L (98-107); Creatinine, Serum 1.12 mg/dL (0.55-1.02); EST Glomerular Filtration Rate 53 mL/min (>60); Est Glom Filt Rate - Afr Amer 64 mL/min (>60); Globulin 3.1 g/dL (2.2-4.2); Glucose 97 mg/dL (74-106); Potassium 4.1 mmol/L (3.5-5.1); Protein, Total 6.9 g/dL (6.4-8.2); Sodium Level 136 mmol/L (136-145)
[2024-08-01 14:09] LABS: Albumin 3.8 g/dL (2.9-4.4); Alpha-1-Globulins 0.2 g/dL (0.0-0.4); Alpha-2-Globulins 0.8 g/dL (0.4-1.0); Free Kappa Light Chains 26.9 mg/L (3.3-19.4); Free Lambda Light Chains 14.8 mg/L (5.7-26.3); Gamma Globulin 0.7 g/dL (0.4-1.8); Immunoglobulin A 83 mg/dL (87-352); Immunoglobulin G 613 mg/dL (586-1602); Immunoglobulin M 159 mg/dL (26-217); PROEL- TOTAL PROTEIN 6.4 g/dL (6.0-8.5)
== END | disposition home or self-care (01) ==
LOC: US 09:05
PROVIDERS: PCP Internal Medicine; Referring Provider Internal Medicine Medical Oncology; Visit Provider Internal Medicine Medical Oncology
DX: D47.2 Monoclonal gammopathy (principal); R94.5 Abnormal results of liver function studies; D72.829 Elevated white blood cell count, unspecified
CPT/HCPCS: 36415; 76705; 76981; 80053; 82784; 83615; 83883; 84165; 85025; 85652; 86140; 86334

== ENCOUNTER → 2024-08-08 | Outpatient (CLI) | payer MEDICAID, SELFPAY ==
--- NOTE | 2024-08-08 12:38 | MRI_ITS ---
EXAM: MR ABDOMEN WITHOUT AND WITH INTRAVENOUS CONTRAST CLINICAL INDICATION: LIVER MASS TECHNIQUE: Multiplanar and multisequence MR images of the abdomen without and with intravenous contrast. CONTRAST: IV 15ml clariscan COMPARISON: No relevant prior studies available. FINDINGS: LOWER THORAX: Normal. No pleural effusion. LIVER: 6.3 cm mass within hepatic segment 5 again noted unchanged from prior exam with appearance most suggestive of fibronodular hyperplasia. Liver is otherwise unremarkable. GALLBLADDER AND BILE DUCTS: Cholecystectomy clips are in place. No intra- or extrahepatic biliary ductal dilation. PANCREAS: Normal. No focal cystic or solid mass. SPLEEN: Normal. Normal size without focal cystic or solid mass. ADRENALS: Normal. No nodules. KIDNEYS AND URETERS: Normal. Normal renal size and position. No hydronephrosis. INTRAPERITONEAL SPACE: Normal. No ascites or other fluid collection. No free air. VASCULATURE: Normal. Abdominal aorta is non-dilated. LYMPH NODES: No enlarged lymph nodes. MRI/MRI Abd WITH and W/O Contrast IMPRESSION: Liver lesion consistent with focal nodular hyperplasia. Electronically Signed: Alexandru Nieto MD at 16:30 EST ,
== END | disposition home or self-care (01) ==
LOC: MRI 12:26
PROVIDERS: PCP Internal Medicine; Referring Provider Internal Medicine Medical Oncology; Visit Provider Internal Medicine Medical Oncology
DX: R16.0 Hepatomegaly, not elsewhere classified (principal); K74.00 Hepatic fibrosis, unspecified; D47.2 Monoclonal gammopathy; D72.828 Other elevated white blood cell count
CPT/HCPCS: 74183; A9575; A4216

== ENCOUNTER → 2024-10-03 | Outpatient (CLI) | payer MEDICAID, SELFPAY ==
--- NOTE | 2024-10-03 13:18 | CT_ITS ---
STUDY: CT ABDOMEN AND PELVIS WITH CONTRAST REASON FOR EXAM: Female, 59 years old. abd pain, dairrhea, coffee ground emesis, Crohn''s RADIATION DOSAGE (If Supplied By Facility): CTDIvol = ( 18.82 ) mGy, DLP = ( 1924.18 ) mGycm TECHNIQUE: Transaxial images were obtained from the dome of the diaphragm to the symphysis pubis with oral contrast. Oral and amp; IV Gastrografin and amp; 100mL Isovue-370 was administered. Sagittal and coronal images were reconstructed. Individualized dose optimization techniques were used for this CT. COMPARISON: 03/28/2024. FINDINGS: The visualized lung bases are unremarkable. The visualized portions of the heart are within normal limits. Liver has a stable probable hemangioma in the periphery of the right hepatic lobe, greatest dimension 6.4 cm. Otherwise unremarkable liver. There are surgical clips in the gallbladder fossa consistent with a prior cholecystectomy. Normal spleen. Normal pancreas. Normal bilateral adrenal glands. Normal right kidney. Normal left kidney. Normal visualized stomach. Normal small intestine. Normal colon. There are surgical clips in the region of the appendix consistent with a prior appendectomy. Stable well-defined fluid density mass adjacent to the cecum, 6.2 cm size consistent with lymphocele or GI duplication cyst. Normal abdominal aorta. Normal inferior vena cava. Normal retroperitoneum. Normal urinary bladder. There is absence of the uterus consistent with a prior hysterectomy. Normal abdominal wall. Normal osseous structures. CT/Abdomen/Pelvis WITH Contrast IMPRESSION: No change and no acute abnormalities. Electronically Signed: Abraham Givens MD at 16:34 EST ,
[2024-10-07 02:06] LABS: Calprotectin, Stool 1860 ug/g (0-120)
== END | disposition home or self-care (01) ==
LOC: CT 13:14
PROVIDERS: PCP Internal Medicine; Referring Provider Internal Medicine Gastroenterology; Visit Provider Internal Medicine Gastroenterology
DX: R19.7 Diarrhea, unspecified (principal); K58.9 Irritable bowel syndrome, unspecified; K92.0 Hematemesis
CPT/HCPCS: 74177; 82274; 83630; 83993; 87177; 87209; 87493; 87506; Q9967

== ENCOUNTER → 2024-10-30 | Outpatient (CLI) | payer MEDICAID, SELFPAY ==
[2024-10-30 09:43] LABS: Absolute Neutrophil Count 4.5 X10^3/uL (2.0-7.7); Basophil# 0.06 X10^3/uL; Basophil% 0.8 % (0-1); Eosinophil# 0.32 X10^3/uL; Hematocrit 40.7 % (37-47); Hemoglobin 13.5 g/dL (12.0-15.0); Lymphocyte % 28.9 % (19-41); Mean Corp Hgb Conc 33.2 g/dL (32-36); Mean Corpuscular Hgb 31.3 pg (27.0-32.0); Mean Corpuscular Volume 94.4 fL (81-99); Mean Platelet Vol. 9.2 fl (6.2-12.0); Monocyte# 0.78 X10^3/uL; Monocyte% 9.8 % (0-10); NRBC Flagged by Analyzer 0 % (0-5); Neutrophil # 4.47 X10^3/uL (2.7-7.7); Neutrophil % 56.1 % (47-70); Platelet Count 407 K/mm3 (150-450); RBC Distribution Width CV 13.2 % (11.6-14.6); RBC Distribution Width SD 45.6 fl (35.1-43.9); Red Blood Count 4.31 M/mm3 (4.2-5.4)
[2024-10-30 10:36] LABS: ALB/GLOB Ratio 0.9 RATIO (0.9-2.4); AST(SGOT) 18 U/L (15-37); Alanine Aminotransfer ALT/SGPT 17 U/L (13-56); Albumin, Serum 3.5 g/dL (3.2-5.0); Alkaline Phosphatase 94 U/L (45-117); Anion Gap 6 (5-15); BUN 16 mg/dL (7-18); BUN/Creat Ratio 14.8 RATIO (10-20); Calcium,Total 9.7 mg/dL (8.5-10.1); Chloride 100 mmol/L (98-107); Cholesterol 160 mg/dL (200); Creatinine, Serum 1.08 mg/dL (0.55-1.02); EST Glomerular Filtration Rate 55 mL/min (>60); Est Glom Filt Rate - Afr Amer 67 mL/min (>60); Free T3 3.6 pg/mL (2.18-3.98); Globulin 3.7 g/dL (2.2-4.2); Glucose 114 mg/dL (74-106); High Density Lipoprotein 70 mg/dL; Potassium 3.5 mmol/L (3.5-5.1); Protein, Total 7.2 g/dL (6.4-8.2); Sodium Level 136 mmol/L (136-145); T4 Free Direct 0.62 ng/dL (0.76-1.46); Triglycerides 102 mg/dL; Very Low Density Lipoprotein 20 mg/dL (5-40)
[2024-10-30 12:04] LABS: Hemoglobin A1c 5.7 % (3.8-5.6)
[2024-10-30 14:57] LABS: Vitamin B12 363 pg/mL (211-911)
[2024-11-01 16:51] LABS: Vitamin D,25 Hydroxy 35.6 ng/mL
== END | disposition home or self-care (01) ==
LOC: LAB 09:17
PROVIDERS: PCP Internal Medicine; Referring Provider Internal Medicine; Visit Provider Internal Medicine
DX: I10 Essential (primary) hypertension (principal); D72.828 Other elevated white blood cell count; D47.2 Monoclonal gammopathy; E88.818 Other insulin resistance; E03.9 Hypothyroidism, unspecified; E55.9 Vitamin D deficiency, unspecified; R73.9 Hyperglycemia, unspecified; Z13.220 Encounter for screening for lipoid disorders
CPT/HCPCS: 36415; 80053; 80061; 82306; 82607; 83036; 83735; 84439; 84443; 84481; 85025

== ENCOUNTER → 2024-11-05 | Outpatient (CLI) | payer MEDICAID, SELFPAY ==
[2024-11-05 21:31] LABS: Free T3 3.2 pg/mL (2.18-3.98); T4 Free Direct 0.68 ng/dL (0.76-1.46)
== END | disposition home or self-care (01) ==
LOC: LAB 10:12
PROVIDERS: PCP Internal Medicine; Referring Provider Internal Medicine; Visit Provider Internal Medicine
DX: E03.9 Hypothyroidism, unspecified (principal)
CPT/HCPCS: 36415; 84439; 84443; 84481

== ENCOUNTER → 2024-12-13 | Outpatient (CLI) | payer MEDICAID, SELFPAY ==
[2024-12-13 15:17] LABS: Free T3 3.4 pg/mL (2.18-3.98)
== END | disposition home or self-care (01) ==
LOC: LAB 13:34
PROVIDERS: PCP Internal Medicine; Referring Provider Internal Medicine; Visit Provider Internal Medicine
DX: E03.9 Hypothyroidism, unspecified (principal)
CPT/HCPCS: 36415; 84439; 84443; 84481

== ENCOUNTER 2024-12-18 10:47 | Day surgery (SDC) | payer MEDICAID, SELFPAY ==
--- NOTE | 2024-12-14 14:08 | PAT.ANE_ITS ---
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 When Was Last Pacemaker Check QUESTION #4 FULL TEXT: You/Your Family Experience fever (hyperthermia) with Anesthesia Last Oral Intake Last Oral intake: Last Oral Intake NPO since Meds taken in AM with sips of water? Meds patient instructed to take am of surgery PONV PONV - motorcycle subassembler: PONV - motorcycle subassembler Female Yes 12/14/24 09:45 HX of Motion Sickness No 12/14/24 09:45 HX of N/V After Surgery No 12/14/24 09:45 Non-Smoker No 12/14/24 09:45 Duration of Surgery greater No 12/14/24 09:45 than 60 minutes Number of Risk Factors 1 12/14/24 09:45 PONV Score Low Risk 12/14/24 09:45 Height & Weight Height & Weight: Anesthesia: Height & Weight Height 5 ft 4 in 10/17/24 10:24 Respiratory Assessment Respiratory Assessment - motorcycle subassembler: Respiratory Tract Infection Hx - motorcycle subassembler Hx Respiratory Tract Infection No 12/14/24 09:45 STOP Sleep Apnea STOP Sleep Apnea - motorcycle subassembler: STOP Sleep Apnea - motorcycle subassembler Hx Hypertension Yes: CONTROLLED ON MED 12/14/24 09:45 Hx Sleep Apnea No 12/14/24 09:45 CPAP BIPAP Do you snore loudly (louder No 12/14/24 09:45 than talking or can be heard Do you often feel tired/ No 12/14/24 09:45 fatigued/ sleepy during daytime? Has anyone observed you stop No 12/14/24 09:45 breathing during sleep? STOP Results Negative 12/14/24 09:45 QUESTION #5 FULL TEXT : Do you snore loudly (louder than talking or can be heard through closed doors)? 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 Specify any problems Hx of Preganancy in last 3 No 12/14/24 09:45 Months Nurse Filling Out Transfusion [facility] 12/14/24 09:45 & Questions: Date: 12/14/24 12/14/24 09:45 Time: 09:46 12/14/24 09:45 Patient unable to answer at this time (ie. confused, unrespo /Reproduction History /Reproductive History - motorcycle subassembler: /Reproductive Hx- motorcycle subassembler Hx Now Gestational Age (in weeks): EDC: Hx Hx Para Hx Section SAB No 12/14/24 09:45 PFSH Medical History Wears glasses Cancer Depression Anxiety Thyroid disease Easy bruising Monoclonal gammopathy History of Crohn's disease Gastric reflux Smoker Normal Holter exam History of echocardiogram History of stress test Post-menopausal Left hip pain Vitamin D deficiency, unspecified Insulin resistance Vitamin B12 deficiency GERD (gastroesophageal reflux disease) Hypothyroidism IBS (irritable bowel syndrome) Hypertension TMJ (dislocation of temporomandibular joint) History of gallstones History of basal cell carcinoma History of fracture of leg Arthritis Seasonal allergies Home Medications ?Medication ?Instructions ?Recorded ?Last Taken ?Type aspirin 81 mg chewable tablet 81 mg PO DAILY@0800 hear [facility] 04/24/16 12/13/24 History biotin 5,000 mcg disintegrating 10,000 mcg PO DAILY corado pplement, 12/18/20 03/27/24 History tablet hair loss loratadine 10 mg tablet 10 mg PO DAILY allergies 05/0203/27/24 History melatonin 10 mg capsule 30 mg PO HS sleep 12/15/23 0 03/27/24 History alcohol swabs 1 pad topical QMONTH injec # 100 ea 12/22/23 Unknown Rx syringe with needle 3 mL 23 gauge #100 ea 12/22/23 Unk nown Rx x 1 09/13 (CareTouch Luer Lock Syringe with needle) metoprolol succinate 25 mg 25 mg PO BID #180 tabs 03/14 10/05 Unknown Rx tablet,extended release 24 hr paroxetine HCl 10 mg tablet 10 mg PO DAILY mood #90 ta bs 04/11/24 Unknown Rx triamterene 37.5 1 tab PO DAILY #90 tabs 03/14 10/05 Unknown Rx mg-hydrochlorothiazide 25 mg tablet mesalamine 1.2 gram tablet,delayed 1.2 g PO BID 30 day s #180 tabs 05/28/24 Unknown Rx release meloxicam 7.5 mg tablet 7.5 mg PO DAILY #90 tabs 02/02 Unknown Rx omeprazole 20 mg capsule,delayed 20 mg PO DAILY acid r eflex #90 caps 10/17/24 Unknown Rx release thyroid (pork) 90 mg tablet 90 mg PO DAILY #90 tabs Unknown Rx colestipol 1 gram tablet 1 g PO BID 12/14/24 Unknown History
--- NOTE | 2024-12-14 14:08 | PAT.ANESEVAL ---
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 When Was Last Pacemaker Check QUESTION #4 FULL TEXT: You/Your Family Experience fever (hyperthermia) with Anesthesia Last Oral Intake Last Oral intake: Last Oral Intake NPO since Meds taken in AM with sips of water? Meds patient instructed to take am of surgery PONV PONV - security flex officer: PONV - security flex officer Female Yes 12/14/24 09:45 HX of Motion Sickness No 12/14/24 09:45 HX of N/V After Surgery No 12/14/24 09:45 Non-Smoker No 12/14/24 09:45 Duration of Surgery greater No 12/14/24 09:45 than 60 minutes Number of Risk Factors 1 12/14/24 09:45 PONV Score Low Risk 12/14/24 09:45 Height & Weight Height & Weight: Anesthesia: Height & Weight Height 5 ft 4 in 10/17/24 10:24 Respiratory Assessment Respiratory Assessment - security flex officer: Respiratory Tract Infection Hx - security flex officer Hx Respiratory Tract Infection No 12/14/24 09:45 STOP Sleep Apnea STOP Sleep Apnea - security flex officer: STOP Sleep Apnea - security flex officer Hx Hypertension Yes: CONTROLLED ON MED 12/14/24 09:45 Hx Sleep Apnea No 12/14/24 09:45 CPAP BIPAP Do you snore loudly (louder No 12/14/24 09:45 than talking or can be heard Do you often feel tired/ No 12/14/24 09:45 fatigued/ sleepy during daytime? Has anyone observed you stop No 12/14/24 09:45 breathing during sleep? STOP Results Negative 12/14/24 09:45 QUESTION #5 FULL TEXT : Do you snore loudly (louder than talking or can be heard through closed doors)? 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 Specify any problems Hx of Preganancy in last 3 No 12/14/24 09:45 Months Nurse Filling Out Transfusion [facility] 12/14/24 09:45 & Questions: Date: 12/14/24 12/14/24 09:45 Time: 09:46 12/14/24 09:45 Patient unable to answer at this time (ie. confused, unrespo /Reproduction History /Reproductive History - security flex officer: /Reproductive Hx- security flex officer Hx Now Gestational Age (in weeks): EDC: Hx Hx Para Hx Section SAB No 12/14/24 09:45 PFSH Medical History Wears glasses Cancer Depression Anxiety Thyroid disease Easy bruising Monoclonal gammopathy History of Crohn's disease Gastric reflux Smoker Normal Holter exam History of echocardiogram History of stress test Post-menopausal Left hip pain Vitamin D deficiency, unspecified Insulin resistance Vitamin B12 deficiency GERD (gastroesophageal reflux disease) Hypothyroidism IBS (irritable bowel syndrome) Hypertension TMJ (dislocation of temporomandibular joint) History of gallstones History of basal cell carcinoma History of fracture of leg Arthritis Seasonal allergies Home Medications ?Medication ?Instructions ?Recorded ?Last Taken ?Type aspirin 81 mg chewable tablet 81 mg PO DAILY@0800 heart health 04/24/16 12/13/24 History biotin 5,000 mcg disintegrating 10,000 mcg PO DAILY supplement, 12/18/20 03/27/24 History tablet hair loss loratadine 10 mg tablet 10 mg PO DAILY allergies 12/18/20 03/27/24 History melatonin 10 mg capsule 30 mg PO HS sleep 12/15/23 03/27/24 History alcohol swabs 1 pad topical QMONTH injec #100 ea 12/22/23 Unknown Rx syringe with needle 3 mL 23 gauge #100 ea 12/22/23 Unknown Rx x 1 1/2 (CareTouch Luer Lock Syringe with needle) metoprolol succinate 25 mg 25 mg PO BID #180 tabs 04/11/24 Unknown Rx tablet,extended release 24 hr paroxetine HCl 10 mg tablet 10 mg PO DAILY mood #90 tabs 04/11/24 Unknown Rx triamterene 37.5 1 tab PO DAILY #90 tabs 04/11/24 Unknown Rx mg-hydrochlorothiazide 25 mg tablet mesalamine 1.2 gram tablet,delayed 1.2 g PO BID 30 days #180 tabs 05/28/24 Unknown Rx release meloxicam 7.5 mg tablet 7.5 mg PO DAILY #90 tabs 07/17/24 Unknown Rx omeprazole 20 mg capsule,delayed 20 mg PO DAILY acid reflex #90 caps 10/17/24 Unknown Rx release thyroid (pork) 90 mg tablet 90 mg PO DAILY #90 tabs 11/06/24 Unknown Rx colestipol 1 gram tablet 1 g PO BID 12/14/24 Unknown History Allergy/AdvReac Type Severity Reaction Status Date / Time budesonide Allergy Severe Rash Verified 12/14/24 09:41 lisinopril Allergy Nausea/Vom/ Verified 12/14/24 09:41 Diarrhea oxycodone (From OxyIR) Allergy rash and Verified 12/14/24 09:41 welts with liquid, itchiness Penicillins Allergy Anaphylaxis Verified 12/14/24 09:41 prednisone Allergy Anaphylaxis Verified 12/14/24 09:41 Sulfa (Sulfonamide Allergy Hives Verified 12/14/24 09:41 Antibiotics) Tetracyclines Allergy Nausea/Vom/ Verified 12/14/24 09:41 Diarrhea Family History Father Alcoholism Cancer Myocardial infarction Hypertension Mother Anemia Grandmother Bone cancer Brother Cancer Seizures Grandfather Myocardial infarction Grandmother Breast cancer Other Heart disease Hyperlipemia Surgical History History of esophagogastroduodenoscopy (EGD) History of appendectomy History of hysterectomy History of cholecystectomy History of tonsillectomy Social History Smoking Status: Current every day smoker tobacco type: cigarettes Tobacco: How many years used: 20 alcohol intake: current alcohol intake frequency: a few times a month substance use type: does not use what type of physical activity do you participate in: none Audit: Pertinent Findings Pertinent Findings EKG Perinent findings: March 29, 2024. Sinus bradycardia 57 bpm. Compared to EKG of March 14, 2018 the heart rate has decreased by 28 bpm. Additional pertinent findings: July 01, 2021. 1 month Holter monitor. Basic rhythm was sinus tachycardia with a heart rate of 101 bpm. Recommendation Anesthesia Recommendation Anesthesia recommendation: OPTIMIZED for anesthesia
[2024-12-18] VITALS (8 sets, daily range): BP systolic 88–128; BP diastolic 59–81; PULSE 78–91; RESP 16; TEMP 36.3–36.6; O2SAT 98–100; BMI 28.3
--- NOTE | 2024-12-18 11:23 | PRE.ANES_ITS ---
ASA Classification* ASA Classification ASA Classification: 2 Assessment & Plan Anesthesia* Anesthesia Assessment Anesthesia Assessment: Discussed sedation and/or anesthesia options, risks, benefits, and alternatives with patient/parents/legal guardian/POA. Questions invited. The patient/parents/legal guardian/POA seems to understand and agrees to proceed with anesthesia plan. Reviewed the physical assessment, medical history, allergy history and patient home medications list prior to surgery/procedure/anesthetic and documented any changes. Performed airway and anesthesia risk assessments. Anesthesia Type Anesthesia Type: MAC History Source History Obtained from:: Patient and Chart Anesthesia Focused Assessment* Temperature: 97.3 F Pulse Rate: 91 Blood Pressure: 128/80 Respiratory Rate: 16 Pulse Ox: 99 Oxygen Delivery Method: Room Air Airway Assessment Mouth opens: >3 cm Mallampati Score: I Teeth Condition: Missing (Patient is missing left lower molar. Rest are tight.) Neck Range of motion (ROM): Full ROM Focused Labs Anesthesia Preop lab: CBC WBC 8.0 K/mm3 (4.4-11.0) 10/30/24 09:20 10/30/24 RBC 4.31 M/mm3 (4.2-5.4) 10/30/24 09:20 10/30/24 Hgb 13.5 g/dL (12.0-15.0) 10/30/24 09:20 10/30/24 Hct 40.7 % (37-47) 10/30/24 09:20 10/30/24 Plt Count 407 K/mm3 (150-450) 10/30/24 09:20 10/30/24 CHEMISTRY Potassium 3.5 mmol/L (3.5-5.1) 10/30/24 09:20 10/30/24 Sodium 136 mmol/L (136-145) 10/30/24 09:20 10/30/24 Magnesium 2.0 mg/dL (1.6-2.6) 10/30/24 09:20 10/30/24 Phosphorus 3.3 mg/dL (2.5-4.9) 05/02/24 11:45 05/02/24 BUN 16 mg/dL (7-18) 10/30/24 09:20 10/30/24 Creatinine 1.08 mg/dL (0.55-1.02) H 10/30/24 09:20 Glucose 114 mg/dL (74-106) H 10/30/24 09:20 10/30/24 TSH 1.370 uIU/mL (0.300-4.200) 12/13/24 13:40 12/04 COAG PT 13.3 SECONDS (11.9-14.4) 05/30/13 03:35 3 Pre-Assessment Diagnosis/Proposed Procedure Planned Operative Procedure(s): COLONOSCOPY Anesthesia History 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 When Was Last Pacemaker Check QUESTION #4 FULL TEXT: You/Your Family Experience fever (hyperthermia) with Anesthesia Last Oral Intake Last Oral intake: Last Oral Intake NPO since 09:30 12/18/24 11:10 Meds taken in AM with sips of Yes 12/18/24 11:10 water? Meds patient instructed to take am of surgery Any additional information?: Yes NPO since: 09:30 (Patient finished her prep at 9:30 AM.) Meds taken in AM with sips of water?: Yes PONV PONV - seedling puller: PONV - seedling puller Female Yes 12/14/24 09:45 HX of Motion Sickness No 12/14/24 09:45 HX of N/V After Surgery No 12/14/24 09:45 Non-Smoker No 12/14/24 09:45 Duration of Surgery greater No 12/14/24 09:45 than 60 minutes Number of Risk Factors 1 12/14/24 09:45 PONV Score Low Risk 12/14/24 09:45 Height & Weight Height & Weight: Anesthesia: Height & Weight Height 5 ft 4 in 12/18/24 11:10 Weight: 75 kg 12/18/24 11:10 Body Mass Index (BMI) 28.3 12/18/24 11:10 Respiratory Assessment Respiratory Assessment - seedling puller: Respiratory Tract Infection Hx - seedling puller Hx Respiratory Tract Infection No 12/14/24 09:45 STOP Sleep Apnea STOP Sleep Apnea - seedling puller: STOP Sleep Apnea - seedling puller Hx Hypertension Yes: CONTROLLED ON MED 12/14/24 09:45 Hx Sleep Apnea No 12/14/24 09:45 CPAP BIPAP Do you snore loudly (louder No 12/14/24 09:45 than talking or can be heard Do you often feel tired/ No 12/14/24 09:45 fatigued/ sleepy during daytime? Has anyone observed you stop No 12/14/24 09:45 breathing during sleep? STOP Results Negative 12/14/24 09:45 QUESTION #5 FULL TEXT : Do you snore loudly (louder than talking or can be heard through closed doors)? 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 Specify any problems Hx of Preganancy in last 3 No 12/14/24 09:45 Months Nurse Filling Out Transfusion VCHRISTIN 12/14/24 09:45 & Questions: Date: 12/14/24 12/14/24 09:45 Time: 09:46 12/14/24 09:45 Patient unable to answer at this time (ie. confused, unrespo /Reproduction History /Reproductive History - seedling puller: /Reproductive Hx- seedling puller Hx Now Gestational Age (in weeks): EDC: Hx Hx Para Hx Section SAB No 12/14/24 09:45 [facility] Medical History Wears glasses Cancer Depression Anxiety Thyroid disease Easy bruising Monoclonal gammopathy History of Crohn's disease Gastric reflux Smoker Normal Holter exam History of echocardiogram History of stress test Post-menopausal Left hip pain Vitamin D deficiency, unspecified Insulin resistance Vitamin B12 deficiency GERD (gastroesophageal reflux disease) Hypothyroidism IBS (irritable bowel syndrome) Hypertension TMJ (dislocation of temporomandibular joint) History of gallstones History of basal cell carcinoma History of fracture of leg Arthritis Seasonal allergies Home Medications ?Medication ?Instructions ?Recorded ?Last Taken ?Type aspirin 81 mg chewable tablet 81 mg PO DAILY@0800 hear t health 04/24/16 12/13/24 History biotin 5,000 mcg disintegrating 10,000 mcg PO DAILY corado pplement, 12/18/20 03/27/24 History tablet hair loss loratadine 10 mg tablet 10 mg PO DAILY allergies 05/0203/27/24 History melatonin 10 mg capsule 30 mg PO HS sleep 12/15/23 0 03/27/24 History alcohol swabs 1 pad topical QMONTH injec # 100 ea 12/22/23 Unknown Rx syringe with needle 3 mL 23 gauge #100 ea 12/22/23 Unk nown Rx x 1 12 (CareTouch Luer Lock Syringe with needle) metoprolol succinate 25 mg 25 mg PO BID #180 tabs 03/1412/18/24 09:30 Rx tablet,extended release 24 hr paroxetine HCl 10 mg tablet 10 mg PO DAILY mood #90 ta bs 04/11/24 Unknown Rx triamterene 37.5 1 tab PO DAILY #90 tabs 03/14 10/05 Unknown Rx mg-hydrochlorothiazide 25 mg tablet mesalamine 1.2 gram tablet,delayed 1.2 g PO BID 30 day s #180 tabs 05/28/24 Unknown Rx release meloxicam 7.5 mg tablet 7.5 mg PO DAILY #90 tabs 02/0212/17/24 Rx omeprazole 20 mg capsule,delayed 20 mg PO DAILY acid r eflex #90 caps 10/17/24 Unknown Rx release thyroid (pork) 90 mg tablet 90 mg PO DAILY #90 tabs 12/18/24 04:30 Rx colestipol 1 gram tablet 1 g PO BID 12/14/24 Unknown History Allergy/AdvReac Type Severity Reaction Status Date / Time budesonide Allergy Severe Rash Verified 12/18/24 11:08 lisinopril Allergy Nausea/Vom/ Verified 12/18/24 11:08 Diarrhea oxycodone (From OxyIR) Allergy rash and Verified 12/18/24 11:08 welts with liquid, itchiness Penicillins Allergy Anaphylaxis Verified 12/18/24 11:08 prednisone Allergy Anaphylaxis Verified 12/18/24 11:08 Sulfa (Sulfonamide Allergy Hives Verified 12/18/24 11:08 Antibiotics) Tetracyclines Allergy Nausea/Vom/ Verified 12/18/24 11:08 Diarrhea Family History Father Alcoholism Cancer Myocardial infarction Hypertension Mother Anemia Grandmother Bone cancer Brother Cancer Seizures Grandfather Myocardial infarction Grandmother Breast cancer Other Heart disease Hyperlipemia Surgical History History of esophagogastroduodenoscopy (EGD) History of appendectomy History of hysterectomy History of cholecystectomy History of tonsillectomy Social History Smoking Status: Current every day smoker tobacco type: cigarettes Tobacco: How many years used: 20 alcohol intake: current alcohol intake frequency: a few times a month substance use type: does not use what type of physical activity do you participate in: none Review of Systems (Anesthesia) ROS Narrative System reviewed and no additional complaints, except as documented.
--- NOTE | 2024-12-18 12:00 | COLBX_PTH ---
PATIENT: GT JOHNSON LOC: EN U#:[id number] AGE/SX: 59/F ROOM: RE12/18/[address]: Dr. Camilo Gonzalez DO : 1965 BED: DIS: 12/18/2024 SPEC #: [id number] RECD: 12/18/24 15:15 STATUS: IMANI REJared #: [id number] RENE: 12/18/24 12:[address]: Camilo Gonzalez DEPT: SURGICAL PATHOLOGY RECD BY: Nataliia Melo ENTERED: 12/19/24 08:47 SP TYPE: COLON BX SLOAN DR: Dr. Melly Rodriguez MD Tissues: A - Ileum, NOS B - COLON BIOPSY Procedures: Surgery Specimen Level IV HEADER OPERATION: Colonoscopy with biopsy PRE-OP DIAGNOSIS: Diarrhea TISSUE SUBMITTED: A- Terminal ileum biopsy, B- Random colon biopsy MICROSCOPIC DIAGNOSIS A. Terminal ileum, diarrhea, biopsy: - No specific pathologic change. B. Colon, random, biopsy: - Increased intraepithelial lymphocytes with superficial degenerative changes and thickening of the subepithelial collagen table, suggestive of collagenous colitis - see note. Note: Recommend correlation with clinical and endoscopic findings. MICROSCOPIC DESCRIPTION Slides are reviewed. GROSS DESCRIPTION A. Received in formalin in a container labeled with the patient's name, date of , and terminal ileum biopsy are 2 abel-pink fragments of mucosal tissue measuring 0.3 x 0.3 x 0.3 cm and 0.7 x 0.2 x 0.2 cm. Submitted in toto in A1. B. Received in formalin in a container labeled with the patient's name, date of , and random colon biopsy are multiple abel-pink fragments of mucosal tissue measuring 1.1 x 0.8 x 0.3 cm in aggregate. Submitted in toto in B1. [facility] 12-19-2024 CPT:31794m1
--- NOTE | 2024-12-18 12:17 | PCM.HP.STD ---
HPI - General General Date of Admission: 12/18/24 Date of Service: 12/18/24 HPI Narrative GT JOHNSON, is a 59 F who presentsChief Complaint: F/u for Monoclonal gammopathy. Details: GT JOHNSON, is a 59 F who presents to the office today for follow up. *BGI established 04.11.24 Pt reports loose bm; denies blood in the stool. Pt reports since starting vancomycin she has developed skin lesions on her face and arms and everything tastes like it is burnt. abd MRI 08.08.24 Liver lesion consistent with focal nodular hyperplasia. US and elastography 07.30.24 hepatic measurement 16.2cm with fatty infiltration, stiffness measures 6.9kPa compatible with F2-F3 Metavir score. OV 08.21.24 pt reports extreme fatigue; reports she has had to quit her job due to being unable to function. pt reports fatigue began about a month ago when she stopped dexamethasone. pt reports that she continues with Mesalamine, is only taking 1 a day due to occasional constipation. States she has a bm 1-3 times a day; denies blood in her stool. Pt reports for the past month she has been experiencing a new symptom of becoming nauseated before she has to sneeze. [facility] Medical History Wears glasses Cancer Depression Anxiety Thyroid disease Easy bruising Monoclonal gammopathy History of Crohn's disease Gastric reflux Smoker Normal Holter exam History of echocardiogram History of stress test Post-menopausal Left hip pain Vitamin D deficiency, unspecified Insulin resistance Vitamin B12 deficiency GERD (gastroesophageal reflux disease) Hypothyroidism IBS (irritable bowel syndrome) Hypertension TMJ (dislocation of temporomandibular joint) History of gallstones History of basal cell carcinoma History of fracture of leg Arthritis Seasonal allergies Home Medications ?Medication ?Instructions ?Recorded ?Last Taken ?Type aspirin 81 mg chewable tablet 81 mg PO DAILY@0800 heart health 04/24/16 12/13/24 History biotin 5,000 mcg disintegrating 10,000 mcg PO DAILY supplement, 12/18/20 03/27/24 History tablet hair loss loratadine 10 mg tablet 10 mg PO DAILY allergies 12/18/20 03/27/24 History melatonin 10 mg capsule 30 mg PO HS sleep 12/15/23 03/27/24 History alcohol swabs 1 pad topical QMONTH injec #100 ea 12/22/23 Unknown Rx syringe with needle 3 mL 23 gauge #100 ea 12/22/23 Unknown Rx x 1 1/2 (CareTouch Luer Lock Syringe with needle) metoprolol succinate 25 mg 25 mg PO BID #180 tabs 04/11/24 12/18/24 09:30 Rx tablet,extended release 24 hr paroxetine HCl 10 mg tablet 10 mg PO DAILY mood #90 tabs 04/11/24 Unknown Rx triamterene 37.5 1 tab PO DAILY #90 tabs 04/11/24 Unknown Rx mg-hydrochlorothiazide 25 mg tablet mesalamine 1.2 gram tablet,delayed 1.2 g PO BID 30 days #180 tabs 05/28/24 Unknown Rx release meloxicam 7.5 mg tablet 7.5 mg PO DAILY #90 tabs 07/17/24 12/17/24 Rx omeprazole 20 mg capsule,delayed 20 mg PO DAILY acid reflex #90 caps 10/17/24 Unknown Rx release thyroid (pork) 90 mg tablet 90 mg PO DAILY #90 tabs 11/06/24 12/18/24 04:30 Rx colestipol 1 gram tablet 1 g PO BID 12/14/24 Unknown History Allergy/AdvReac Type Severity Reaction Status Date / Time budesonide Allergy Severe Rash Verified 12/18/24 11:08 lisinopril Allergy Nausea/Vom/ Verified 12/18/24 11:08 Diarrhea oxycodone (From OxyIR) Allergy rash and Verified 12/18/24 11:08 welts with liquid, itchiness Penicillins Allergy Anaphylaxis Verified 12/18/24 11:08 prednisone Allergy Anaphylaxis Verified 12/18/24 11:08 Sulfa (Sulfonamide Allergy Hives Verified 12/18/24 11:08 Antibiotics) Tetracyclines Allergy Nausea/Vom/ Verified 12/18/24 11:08 Diarrhea Family History Father Alcoholism Cancer Myocardial infarction Hypertension Mother Anemia Grandmother Bone cancer Brother Cancer Seizures Grandfather Myocardial infarction Grandmother Breast cancer Other Heart disease Hyperlipemia Surgical History History of esophagogastroduodenoscopy (EGD) History of appendectomy History of hysterectomy History of cholecystectomy History of tonsillectomy Social History Smoking Status: Current every day smoker (Patient smoked today.) tobacco type: cigarettes Tobacco: How many years used: 20 alcohol intake: current alcohol intake frequency: a few times a month substance use type: does not use what type of physical activity do you participate in: none Vital Signs Vital Signs Vital Signs: 12/18/24 11:10 12/18/24 11:10 12/18/24 11:33 Temperature 97.3 F L 97.3 F L Temperature Source Temporal Pulse Rate 91 91 Respiratory Rate 16 16 Respiratory Pattern Normal Blood Pressure 128/80 H 128/80 H Blood Pressure Mean 96 Blood Pressure Source Monitor Blood Pressure Position Supine Blood Pressure Location Left Arm Pulse Ox 99 99 Oxygen Delivery Method Room Air Room Air Weight Weight: 165 lb 5.547 oz Body Mass Index (BMI) 28.3 Physical Exam Const alert, oriented x3 and no apparent distress Assessment & Plan Assessment/Plan (1) Diarrhea: PLAN: Plan Assessment and Plan Assessment and Plan (1) Colitis: Status: Acute Plan: 58-year-old female presented to the emergency room with chronic diarrhea and abdominal pain. Patient notes that she has had loose stools chronically for years since her cholecystectomy. She states over the last 2 months she has had severe diarrhea now up to 4-5 times per day. She had lost approximately 20 pounds. She states that it is coffee ground and yellow bile. She stated that over the past couple days she has been having fever yesterday up to 101 today. She states that she saw Dr. Perea from surgery in February and had stool studies and a CT scan performed at the beginning of this month. She statedf that the CT scan showed colitis and she was placed on antibiotics (Cipro and Flagyl). Patient states that she is not any better and today could not get off the commode due to persistent diarrhea and so she decided to come to emergency. She said this all started when she went down to apple picker her mother in [place]. 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 She has a past medical history of eosinophilic gastroenteritis. She underwent 2 stool studies that did not show any sign of infection but was positive for white blood cells. Currently she is very nauseous and bloated. She denies any chest pain or shortness of breath. She does get some intermittent pain in bilateral distal phalanges but no swelling or rash. She had seen Dr. Perea in the office and had a CAT scan that showed colitis. She had been on antibiotics and was taking antibiotics with ciprofloxacin and metronidazole and has had no improvement despite antibiotics. She states that she has some coffee-ground looking material as well as some bilious material within her liquid stool. He referred the patient to me for an outpatient colonoscopy. She had a repeat CAT scan that showed progression of the colitis as compared to prior study with persistent fluid collections adjacent to the cecum, diffuse bladder wall thickening. I was consulted in the hospital and performed an EGD and a colonoscopy, the EGD demonstrated gastric ulcers and she does take a PPI but she takes it inconsistently and only when she feels that she needs it. Colonoscopy on the other hand did show significant signs of colitis initially felt to be pseudomembranous colitis however the C. difficile testing again on this admission was negative. Biopsies were taken and pending. She does have a history of anaphylaxis to prednisone however budesonide was attempted and she did not tolerate with hives and itching so she was switched to mesalamine 1.2 g p.o. twice daily. ?Symptoms and biochemical workup for inflammatory bowel disease including IBD SGI, ESR, CRP, CARTER, ANCA, LDH, stool studies for inflammation including fecal lactoferrin, fecal elastase and stool calprotectin. Her blood work came back positive for Crohn's disease with a positive AMCA antibody. She had a very high titer of CARTER with 1 out of 160 and a positive ANCA antibody. She also was determined to have an M spike at a level of 0.2 and serum protein electrophoresis that is shown increased kappa light chains. She is feeling a lot better regarding her diarrhea. She went from 10+ bowel movements a day to to 3 bowel movements a day. She is also had more energy. She told me that she has a past history of being positive for toxoplasmosis. She says she has never been tested for latent tuberculosis. I told her that I would like for her to get on stronger medicines for Crohn's disease. I told her however we will have to check to make sure she does not have a toxoplasmosis IgM antibody and we will have to get a QuantiFERON gold. Her IgA levels are very low. Recommendations: -Referral to hematology for possible MGUS -Continue mesalamine 2.4 g a day -Recheck inflammatory markers in the blood in the stool -IgG and IgM for toxoplasmosis -Check for viral hepatitis B or C -Colonoscopy - (2) Fatigue: Status: Acute Plan: Since going off the dexamethasone she is having constant fatigue. We will refer her to rheumatology for possibly fibromyalgia chronic fatigue syndrome. (3) Back pain: Status: Acute
--- NOTE | 2024-12-18 13:02 | PCM.POST.ANE ---
Anesthesia: Postop Eval I Current Vital Signs Temperature: 97.8 F Pulse Rate: 84 Blood Pressure: 88/63 Respiratory Rate: 16 Pulse Ox: 98 Oxygen Delivery Method: Room Air Assessment Airway patent: Yes Spontaneous unlabored respirations: Yes Mental status: Awake nausea: Yes Vomiting: No Anesthesia Complication: No Fluid Hydration Crystalloid volume administer (ml): 50 Total IV fluid infused: 50 Progress Note Post-operative progress note: pt intially reported feeling great, then reported nausea when the word was mentioned in PACU Anesthesia document: Postop Eval 1 completed: Yes
--- NOTE | 2024-12-18 13:03 | OP.COLON_ITS ---
Patient Name: Kristal Frank Procedure Date: 12/18/2024 11:49 AM Date of : 1965 Age: 59 Procedure: Colonoscopy Indications: Chronic diarrhea Providers: Camilo Gonzalez DO Referring MD: Melly Rodriguez Medicines: Monitored Anesthesia Care Patient Profile: This is a 59 year old female. Refer to note in patient chart for documentation of history and physical. Last Colonoscopy: several years ago. Complications: No immediate complications. Procedure: Pre-Anesthesia Assessment: - Prior to the procedure, a History and Physical was performed, and patient medications and allergies were reviewed. The patient is competent. The risks and benefits of the procedure and the sedation options and risks were discussed with the patient. All questions were answered and informed consent was obtained. Patient identification and proposed procedure were verified by the physician in the pre-procedure area. Mental Status Examination: alert and oriented. Airway Examination: normal oropharyngeal airway and neck mobility. Respiratory Examination: clear to auscultation. CV Examination: normal. Prophylactic Antibiotics: The patient does not require prophylactic antibiotics. Prior Anticoagulants: The patient has taken no anticoagulant or antiplatelet agents except for NSAID medication. ASA Grade Assessment: II - A patient with mild systemic disease. After reviewing the risks and benefits, the patient was deemed in satisfactory condition to undergo the procedure. The anesthesia plan was to use monitored anesthesia care (MAC). Immediately prior to administration of medications, the patient was re-assessed for adequacy to receive sedatives. The heart rate, respiratory rate, oxygen saturations, blood pressure, adequacy of pulmonary ventilation, and response to care were monitored throughout the procedure. The physical status of the patient was re-assessed after the procedure. After I obtained informed consent, the scope was passed under direct vision. Throughout the procedure, the patient's blood pressure, pulse, and oxygen saturations were monitored continuously. The Colonoscope was introduced through the anus and advanced to the terminal ileum. The colonoscopy was performed without difficulty. The patient tolerated the procedure well. The quality of the bowel preparation was adequate. The terminal ileum, ileocecal valve, appendiceal orifice, and rectum were photographed. Scope In: 12:37:09 PM Scope Withdrawal Time 0 hours 10 minutes 35 seconds Scope Out: 12:53:18 PM Total Procedure Duration Time 0 hours 16 minutes 9 seconds Findings: The perianal and digital rectal examinations were normal. Multiple small and large-mouthed diverticula were found in the recto-sigmoid colon, sigmoid colon and descending colon. An area of mildly congested mucosa was found in the recto-sigmoid colon, in the sigmoid colon, in the descending colon, at the hepatic flexure and in the ascending colon. Biopsies were taken with a cold forceps for histology. Verification of patient identification for the specimen was done. Estimated blood loss was minimal. The terminal ileum appeared normal. Biopsies were taken with a cold forceps for histology. Verification of patient identification for the specimen was done. Estimated blood loss was minimal. Impression: - Diverticulosis in the recto-sigmoid colon, in the sigmoid colon and in the descending colon. - Congested mucosa in the recto-sigmoid colon, in the sigmoid colon, in the descending colon, at the hepatic flexure and in the ascending colon. Biopsied. - The examined portion of the ileum was normal. Biopsied. Recommendation: - Discharge patient to home. - Resume previous diet. - Continue present medications. - Await pathology results. - Repeat colonoscopy for surveillance based on pathology results. Procedure Code(s): --- Professional --- 82953, Colonoscopy, flexible; with biopsy, single or multiple CPT copyright 2021 [employer]. All rights reserved. The codes documented in this report are preliminary and upon stroke coordinator review may be revised to meet current compliance requirements. Camilo Gonzalez DO 12/18/2024 1:02:55 PM This report has been signed electronically. Number of Addenda: 0 Note Initiated On: 12/18/2024 11:49 AM
--- NOTE | 2024-12-18 13:03 | OP.CCLET_ITS ---
12/18/2024 Melly Rodriguez [facility] [address] [place] [address] Re : Colonoscopy procedure for Kristal Frank Dear Dr. Rodriguez This procedure was performed on Wednesday, December 18, 2024. My impressions and recommendations are as follows: Impressions : - Diverticulosis in the recto-sigmoid colon, in the sigmoid colon and in the descending colon. - Congested mucosa in the recto-sigmoid colon, in the sigmoid colon, in the descending colon, at the hepatic flexure and in the ascending colon. Biopsied. - The examined portion of the ileum was normal. Biopsied. Recommendations : - Discharge patient to home. - Resume previous diet. - Continue present medications. - Await pathology results. - Repeat colonoscopy for surveillance based on pathology results. My findings are described in the full procedure note, which is enclosed. If I can be of further assistance, please feel free to contact me at . Sincerely, Camilo Gonzalez DO 12/18/2024 1:02:55 PM This report has been signed electronically.
--- NOTE | 2024-12-18 19:20 | PCM.POSTANE2 ---
Anesthesia Postop Eval I Sum Postop Eval Completion status Anesthesia document: Postop Eval 1 completed: Yes Anesthesia Postop Eval I Summary Anesthesia Postop Eval I Summary: Anesthesia Postop Eval I: Assessment Summary Airway patent Yes 12/18/24 13:04 [email or web address] Spontaneous unlabored Yes 12/18/24 13:04 [email or web address] respirations Mental status Awake 12/18/24 13:04 [email or web address] nausea Yes 12/18/24 13:04 [email or web address] Vomiting No 12/18/24 13:04 [email or web address] Anesthesia Postop Eval I: Fluid Summary Crystalloid volume administer 50 12/18/24 13:04 [email or web address] (ml) Colloids volume administered ( ml) Blood Product volume administered (ml) Total IV fluid infused 50 12/18/24 13:04 [email or web address] Anesthesia Postop Eval I: Summary Notes Anesthesia Complication No 12/18/24 13:04 [email or web address] Anesthesia Complication Comment: Post-operative progress note pt intially 12/18/24 13:04 [email or web address] reported feeling great, then reported nausea when the word was mentioned in PACU Anesthesia: Postop Eval II Evaluation Mental status: Awake and Calm Pain Level: 0 nausea: No Vomiting: No Progress Note Post-operative progress note: second dose of zofran in PACU Complications Anesthesia Complication: No
== END 2024-12-18 13:46 | disposition home or self-care (01) ==
LOC: EN 10:47 → AC 10:48
PROVIDERS: PCP Internal Medicine; Referring Provider Internal Medicine; Visit Provider Internal Medicine Gastroenterology
PROC: 0DJD8ZZ Inspection of Lower Intestinal Tract, Via Natural or Artificial Opening Endoscopic (ICD-10-PCS; CPT 45378; principal; 2024-12-18 11:55)
DX: K57.30 Diverticulosis of large intestine without perforation or abscess without bleeding (principal); K50.90 Crohn's disease, unspecified, without complications; K21.9 Gastro-esophageal reflux disease without esophagitis; R53.83 Other fatigue; I10 Essential (primary) hypertension; F17.210 Nicotine dependence, cigarettes, uncomplicated; Z90.49 Acquired absence of other specified parts of digestive tract; Z79.82 Long term (current) use of aspirin; Z79.899 Other long term (current) drug therapy
CPT/HCPCS: 45380; 88305; A4216; J2405

== ENCOUNTER → 2025-01-17 | Outpatient (CLI) | payer MEDICAID, SELFPAY ==
[2025-01-17 10:53] LABS: Absolute Lymphocyte Count 1.45 X10^3/uL (0.83-4.51); Absolute Neutrophil Count 4.5 X10^3/uL (2.0-7.7); Basophil# 0.06 X10^3/uL; Basophil% 0.8 % (0-1); Eosinophil# 0.47 X10^3/uL; Eosinophils% 6.5 % (0-5); Hematocrit 42.9 % (37-47); Hemoglobin 15.1 g/dL (12.0-15.0); Lymphocyte # 1.45 X10^3/ul (0.83-4.51); Lymphocyte % 19.9 % (19-41); Mean Corp Hgb Conc 35.2 g/dL (32-36); Mean Corpuscular Hgb 33.5 pg (27.0-32.0); Mean Corpuscular Volume 95.1 fL (81-99); Mean Platelet Vol. 9.7 fl (6.2-12.0); Monocyte# 0.76 X10^3/uL; Monocyte% 10.5 % (0-10); NRBC Flagged by Analyzer 0 % (0-5); Neutrophil # 4.51 X10^3/uL (2.7-7.7); Platelet Count 323 K/mm3 (150-450); RBC Distribution Width CV 13.2 % (11.6-14.6); RBC Distribution Width SD 46.2 fl (35.1-43.9); Red Blood Count 4.51 M/mm3 (4.2-5.4); White Blood Count 7.3 K/mm3 (4.4-11.0)
[2025-01-17 11:46] LABS: ALB/GLOB Ratio 1.6 RATIO (0.9-2.4); AST(SGOT) 16 U/L (<=31); Alanine Aminotransfer ALT/SGPT 7 U/L (<=34); Albumin, Serum 4.4 g/dL (3.5-5.0); Alkaline Phosphatase 89 U/L (35-104); Anion Gap 12 (5-15); BUN 18 mg/dL (4-19); BUN/Creat Ratio 16.2 RATIO (10-20); Calcium,Total 10.2 mg/dL (7.6-11.0); Carbon Dioxide 26.8 mmol/L (21.0-32.0); Chloride 99 mmol/L (98-108); Creatinine, Serum 1.13 mg/dL (0.70-1.20); EST Glomerular Filtration Rate 56 (>60); Globulin 2.7 g/dL (2.2-4.2); Glucose 116 mg/dL (70-99); LDH 126 U/L (84-246); Potassium 3.8 mmol/L (3.3-5.1); Protein, Total 7.1 g/dL (5.9-8.4); Sodium Level 138 mmol/L (133-145); Total Bilirubin 0.34 mg/dL (0.00-1.30)
[2025-01-21 11:08] LABS: Albumin 4.1 g/dL (2.9-4.4); Alpha-1-Globulins 0.3 g/dL (0.0-0.4); Alpha-2-Globulins 0.8 g/dL (0.4-1.0); Free Kappa Light Chains 29.9 mg/L (3.3-19.4); Free Lambda Light Chains 15.8 mg/L (5.7-26.3); Gamma Globulin 0.8 g/dL (0.4-1.8); Immunoglobulin A 88 mg/dL (87-352); Immunoglobulin G 745 mg/dL (586-1602); Immunoglobulin M 219 mg/dL (26-217); PROEL- TOTAL PROTEIN 6.9 g/dL (6.0-8.5)
== END | disposition home or self-care (01) ==
LOC: LAB 10:14
PROVIDERS: PCP Internal Medicine; Referring Provider Internal Medicine Medical Oncology; Visit Provider Internal Medicine Medical Oncology
DX: D47.2 Monoclonal gammopathy (principal)
CPT/HCPCS: 36415; 80053; 82784; 83615; 83883; 84165; 85025; 86334

== ENCOUNTER → 2025-02-07 | Outpatient (CLI) | payer MEDICAID, SELFPAY ==
--- NOTE | 2025-02-07 12:48 | ART_ITS ---
Reason For Study Reason For Study: PVD Procedure A bilateral lower extremity continuous wave Doppler with analog waveform analysis and ankle brachial indexes. Left Segmental Pressures Left brachial= 107mmHg. Left posterior tibial artery = 121mmHg. Left dorsalis pedis artery = 116mmHg. Left digit = 79 mmHg. The left posterior tibial artery waveforms are triphasic. The left dorsalis pedis waveforms are triphasic. Right Segmental Pressures Right brachial= 119mmHg. Right posterior tibial artery = 137mmHg. Right dorsalis pedis artery = 136mmHg. Right digit = 70 mmHg. The right posterior tibial artery waveforms are triphasic. The right dorsalis pedis waveforms are triphasic. Indices The right ankle brachial index by the posterior tibial artery is 1.15. The right ankle brachial index by the dorsalis pedis is 1.14. The right digital-brachial index is 0.59. The left ankle brachial index by the posterior tibial artery is 1.02. The left ankle brachial index by the dorsalis pedis is 0.97. The left digital-brachial index is 0.66. VL/Ankle Brachial Index Interpretation Summary Triphasic Doppler waveforms are noted at ankle level bilaterally. Pulse-volume recordings appear satisfactory at ankle and digital level bilaterally. Resting ankle-brachial indices are normal bilate rally. Digital-brachial indices are mildly diminished bilaterally. Arterial flow appears normal at ankle level bilaterally. There is evidence of m ild arterial occlusive disease at digital level bilaterally. Ordering Physician: Melly Rodriguez Referring Physician: Melly Rodriguez M.D. Performed By: Mac Bray RVT
== END | disposition home or self-care (01) ==
LOC: CVS 12:46
PROVIDERS: PCP Internal Medicine; Referring Provider Internal Medicine; Visit Provider Internal Medicine
DX: I73.9 Peripheral vascular disease, unspecified (principal)
CPT/HCPCS: 93922

== ENCOUNTER → 2025-03-13 | Outpatient (CLI) | payer MEDICAID, SELFPAY ==
[2025-03-13 14:40] LABS: Free T3 3.9 pg/mL (2.18-3.98)
== END | disposition home or self-care (01) ==
LOC: LAB 11:55
PROVIDERS: PCP Internal Medicine; Referring Provider Internal Medicine; Visit Provider Internal Medicine
DX: E03.9 Hypothyroidism, unspecified (principal); M48.00 Spinal stenosis, site unspecified; M25.551 Pain in right hip; M25.552 Pain in left hip
CPT/HCPCS: 36415; 84439; 84443; 84481; 86200; 86431

== ENCOUNTER → 2025-04-11 | Outpatient (CLI) | payer MEDICAID, SELFPAY ==
[2025-04-11 12:15] LABS: Hematocrit 41.7 % (37-47); Hemoglobin 14.1 g/dL (12.0-15.0); Immature Granulocytes Count 0.030 X10^3/uL (0.0-0.0); Mean Corp Hgb Conc 33.8 g/dL (32-36); Mean Corpuscular Volume 95.2 fL (81-99); Mean Platelet Vol. 9.7 fl (6.2-12.0); NRBC Flagged by Analyzer 0 % (0-5); Platelet Count 336 K/mm3 (150-450); RBC Distribution Width CV 13.2 % (11.6-14.6); RBC Distribution Width SD 46.1 fl (35.1-43.9); Red Blood Count 4.38 M/mm3 (4.2-5.4); White Blood Count 8.4 K/mm3 (4.4-11.0)
[2025-04-11 12:57] LABS: AST(SGOT) 15 U/L (<=31); Alanine Aminotransfer ALT/SGPT 7 U/L (<=34); Albumin, Serum 4.3 g/dL (3.5-5.0); Alkaline Phosphatase 97 U/L (35-104); Anion Gap 11 (5-15); BUN 19 mg/dL (4-19); BUN/Creat Ratio 16.8 RATIO (10-20); Calcium,Total 10.1 mg/dL (7.6-11.0); Carbon Dioxide 26.8 mmol/L (21.0-32.0); Chloride 99 mmol/L (98-108); Globulin 2.6 g/dL (2.2-4.2); Glucose 72 mg/dL (70-99); LDH 134 U/L (84-246); Potassium 3.9 mmol/L (3.3-5.1)
[2025-04-15 16:09] LABS: Albumin 3.9 g/dL (2.9-4.4); Gamma Globulin 0.8 g/dL (0.4-1.8); Immunoglobulin A 92 mg/dL (87-352); Immunoglobulin G 714 mg/dL (586-1602); Immunoglobulin M 216 mg/dL (26-217); PROEL- TOTAL PROTEIN 6.8 g/dL (6.0-8.5)
== END | disposition home or self-care (01) ==
LOC: LAB 11:05
PROVIDERS: PCP Internal Medicine; Referring Provider Internal Medicine Medical Oncology; Visit Provider Internal Medicine Medical Oncology
DX: D47.2 Monoclonal gammopathy (principal)
CPT/HCPCS: 36415; 80053; 82784; 83615; 83883; 84165; 85025; 86334

== ENCOUNTER → 2025-08-16 | Outpatient (CLI) | payer MEDICAID, SELFPAY ==
[2025-08-16 12:31] LABS: Hematocrit 44.9 % (37-47); Hemoglobin 15.3 g/dL (12.0-15.0); Immature Granulocytes Count 0.040 X10^3/uL (0.0-0.0); Mean Corp Hgb Conc 34.1 g/dL (32-36); Mean Corpuscular Volume 94.7 fL (81-99); Mean Platelet Vol. 10.0 fl (6.2-12.0); NRBC Flagged by Analyzer 0 % (0-5); Platelet Count 392 K/mm3 (150-450); RBC Distribution Width CV 12.6 % (11.6-14.6); RBC Distribution Width SD 43.9 fl (35.1-43.9); Red Blood Count 4.74 M/mm3 (4.2-5.4); White Blood Count 8.0 K/mm3 (4.4-11.0)
[2025-08-16 13:19] LABS: AST(SGOT) 18 U/L (<=31); Alanine Aminotransfer ALT/SGPT 9 U/L (<=34); Albumin, Serum 4.6 g/dL (3.4-4.8); Alkaline Phosphatase 92 U/L (35-104); Anion Gap 14 (5-15); BUN 16 mg/dL (4-19); BUN/Creat Ratio 14.3 RATIO (10-20); Calcium,Total 10.1 mg/dL (7.6-11.0); Carbon Dioxide 26.4 mmol/L (21.0-32.0); Chloride 93 mmol/L (98-108); Cholesterol 167 mg/dL (<=200); Free T3 4.1 pg/mL (2.18-3.98); Globulin 2.8 g/dL (2.2-4.2); Glucose 104 mg/dL (70-99); Low Density Lipoprotein Calc. 86 mg/dL; Magnesium 1.9 mg/dL (1.5-2.2); Potassium 3.9 mmol/L (3.3-5.1); Triglycerides 77 mg/dL; Very Low Density Lipoprotein 15 mg/dL (5-40); Vitamin B12 347 pg/mL (180-914); Vitamin D,25 Hydroxy 31.0 ng/mL (30-100); cholesterol:hdl ratio screen 2.52
== END | disposition home or self-care (01) ==
LOC: MTLAB 10:31
PROVIDERS: PCP Internal Medicine; Referring Provider Internal Medicine; Visit Provider Internal Medicine
DX: Z13.220 Encounter for screening for lipoid disorders (principal); I10 Essential (primary) hypertension; E03.9 Hypothyroidism, unspecified; E53.8 Deficiency of other specified B group vitamins; E55.9 Vitamin D deficiency, unspecified; E88.818 Other insulin resistance; R53.83 Other fatigue; R73.9 Hyperglycemia, unspecified
CPT/HCPCS: 36415; 80053; 80061; 82306; 82607; 83036; 83735; 84439; 84443; 84481; 85025